=== PATIENT | male | born 1985 | race Caucasian/White ===

== ENCOUNTER 2019-07-07 11:25 | Inpatient (IN) | payer OTHER ==
[2019-07-07 12:58] VITALS: BMI 27.6
--- NOTE | 2019-07-07 14:41 | BHS.RME ---
Substance Use & Tx History - Substance Use History Alcohol Substance amount: 3pints of vodka/3 of 24ozs of beer Frequency of use: Daily Substance route: Oral Date of Last Use: 07/07/19 Cocaine (Crack) Substance amount: 150$ Frequency of use: Daily Date of Last Use: 07/07/19 Cannabis Substance amount: 2 blunnts Frequency of use: Less than 3 times per week Date of Last Use: 07/04/19 - Last Treatment Date of last treatment: at age 16 Where was last treatment: Detox Physical/Psych/Mental Status - Behavior General Behavior: Increased activity (restlessness, agitation) Eye Contact: Normal - Cooperativeness Cooperativeness: Cooperative - Thinking Thought Processes: Logical Thought content: Future oriented - Physical Health Problems Is patient presently having any pain?: No Does patient presently have any injuries (include location): No Does patient currently have a fever: No CIWA Nausea/Vomitin Muscle Tremors: 3 Anxiety: 2 Agitation: 3 Paroxysmal Sweats: 1-Minimal Palms Moist Orientation: 0-Oriented Tacttile Disturbances: 1-Very Mild Itch/Numbness Auditory Disturbances: 0-None Visual Disturbances: 0-None Headache: 2-Mild (this 34 yea sold male with alcohol,cociane and marijuana dependence,seeking detox, first time to this facility) CIWA-Ar Total Score: 15
--- NOTE | 2019-07-07 14:49 | HP ---
CIWA Score Nausea/Vomitin Muscle Tremors: 3 Anxiety: 2 Agitation: 3 Paroxysmal Sweats: 1-Minimal Palms Moist Orientation: 0-Oriented Tacttile Disturbances: 1-Very Mild Itch/Numbness Auditory Disturbances: 0-None Visual Disturbances: 0-None Headache: 2-Mild (this 34 yea sold male with alcohol,cociane and marijuana dependence,seeking detox, first time to this facility) CIWA-Ar Total Score: 15 - Admission Criteria [facility]ASAS Guidelines: Admission for Medically Managed Detox: Requires at least one of the followin. CIWA greater than 12 2. Seizures within the past 24 hours 3. Delirium tremens within the past 24 hours 4. Hallucinations within the past 24 hours 5. Acute intervention needed for co occurring medical disorder 6. Acute intervention needed for co occurring psychiatric disorder 7. Severe withdrawal that cannot be handled at a lower level of care (continued vomiting, continued diarrhea, abnormal vital signs) requiring intravenous medication and/or fluids 8. Admitting History and Physical - Admission Chief Complaint: i need help to stop drinking lcohol,cocaine and marijuana History of Present Illness: ths 34 yers old male with alcohol,cocaine and marijuana dependence,seeking detox ,withdrawal symptom, first time to this facility denied seizure denied syncope last detox at age 16 years no significant period of sobriety History Source: Patient Limitations to Obtaining History: No Limitations - Past Surgical History Past Surgical History: Yes: None - Smoking History Smoking history: Current every day smoker Have you smoked in the past 12 months: Yes Aproximately how many cigarettes per day: 10 - Alcohol/Substance Use Hx Alcohol Use: Yes History of Substance Use: reports: Cocaine, Marijuana - Social History Usual Living Arrangement: Yes: Other (nomeless) Occupation: unemployed History of Recent Travel: No Admission ROS [facility] - [facility] Chief Complaint: i need help to stop drinkine alcohol,cocaine and marijuana Allergies/Adverse Reactions: Allergies Allergy/AdvReac Type Severity Reaction Status Date / Time No Known Allergies Allergy Verified 07/07/19 14:23 History of Present Illness: his 34 yeas old mal with lcohol,cocine and marijuana dependence,seeking detox, withdrawal symptom,, first time to this facility denied seizure denied syncope nicotine dependence homeless,unemployed no significan tperiod of sobriety plan for rehab after detox Exam Limitations: No Limitations - Ebola screening Have you traveled outside of the country in the last 21 days: No Have you had contact with anyone from an Ebola affected area: No Have you been sick,other than usual withdrawal symptoms: No Do you have a fever: No - Review of Systems Constitutional: Loss of Appetite, Malaise, Night Sweats, Changes in sleep, Weakness EENT: reports: Tearing, Nose Congestion Respiratory: reports: No Symptoms reported Cardiac: reports: No Symptoms Reported GI: reports: Nausea, Poor Appetite, Abdominal cramping : reports: No Symptoms Reported Musculoskeletal: reports: Back Pain, Muscle Pain Integumentary: reports: Dryness Neuro: reports: Headache, Tremors Endocrine: reports: No Symptoms Reported Hematology: reports: No Symptoms Reported Psychiatric: reports: No Sypmtoms Reported, Judgement Intact, Mood/Affect Appropiate, Orientated x3 Other Systems: Reviewed and Negative Patient History - Patient Medical History Hx Anemia: No Hx Asthma: No Hx Chronic Obstructive Pulmonary Disease (COPD): No Hx Cancer: No Hx Cardiac Disorders: No Hx Congestive Heart Failure: No Hx Hypertension: No Hx Hypercholesterolemia: No Hx Pacemaker: No HX Cerebrovascular Accident: No Hx Seizures: No Hx Dementia: No Hx Diabetes: No Hx Gastrointestinal Disorders: No Hx Liver Disease: No Hx Genitourinary Disorders: No Hx Sexually Transmitted Disorders: No Hx Renal Disease (ESRD): No Hx Thyroid Disease: No Hx Human Immunodeficiency Virus (HIV): No (last 06/2019 negative) Hx Hepatitis C: No Hx Depression: No Hx Suicide Attempt: No Hx Bipolar Disorder: No Hx Schizophrenia: No Other Medical History: no suicidal,no homicidal - Patient Surgical History Past Surgical History: No - PPD History Previous Implant?: Yes Documented Results: Negative w/o proof Implanted On Prior R Admission?: No PPD to be Administered?: Yes - Smoking Cessation Smoking history: Current every day smoker Have you smoked in the past 12 months: Yes Cigars Per Day: 10 Hx Chewing Tobacco Use: No Initiated information on smoking cessation: Yes 'Breaking Loose' booklet given: 07/07/19 - Substance & Tx. History Hx Alcohol Use: Yes Hx Substance Use: Yes Substance Use Type: Alcohol, Cocaine, Marijuana Hx Substance Use Treatment: Yes (at age of [age] years old) - Substances abused Alcohol Substance route: Oral Frequency: Daily Amount used: 2-3 pints of vodka/2 of 24ozs of beer Age of first use: 12 Date of last use: 07/06/19 Cocaine Other (specify): and smoke Substance route: Inhalation Frequency: Daily Amount used: $150 Age of first use: 15 Date of last use: 07/06/19 Marijuana/Hashish Substance route: Smoking Frequency: 1-2 times per week Amount used: 2 blunts Age of first use: 17 Date of last use: 07/03/19 Admission Physical Exam [facility] - Vital Signs Vital Signs: Vital Signs - 24 hr 07/07/19 07/07/19 12:56 14:23 Temperature 97.1 F L 97.1 F L Pulse Rate 72 72 Respiratory 18 18 Rate Blood Pressure 100/63 100/63 - Physical General Appearance: Yes: Moderate Distress, Tremorous, Irritable, Sweating, Anxious HEENTM: Yes: DEIRDRE, Pharynx Normal Respiratory: Yes: Lungs Clear, Normal Breath Sounds, No Respiratory Distress Neck: Yes: Within Normal Limits, Supple, Trachea in good position Breast: Yes: Within Normal Limits Cardiology: Yes: Within Normal Limits, Regular Rhythm, Regular Rate, S1, S2 Abdominal: Yes: Within Normal Limits, Normal Bowel Sounds, Non Tender, Flat, Soft Genitourinary: Yes: Within Normal Limits Back: Yes: Muscle Spasm Musculoskeletal: Yes: Back pain, Muscle Pain Extremities: Yes: Tremors 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 NML intact, Fully Oriented, Alert, Motor Strength 5/5 Integumentary: Yes: Dry Lymphatic: Yes: Within Normal Limits - Diagnostic (1) Alcohol dependence with uncomplicated withdrawal Current Visit: Yes Status: Acute (2) Cocaine dependence Current Visit: Yes Status: Acute (3) Cannabis dependence Current Visit: Yes Status: Acute (4) Nicotine dependence Current Visit: Yes Status: Acute Cleared for Admission [facility] - Detox or Rehab [facility] Level of Care: Medically Managed Detox Regimen/Protocol: Librium Breathalyzer - Breathalyzer Breathalyzer: 0 Urine Drug Screen - Test Device Lot number: [id number] Expiration date: 04/15/21 - Control Is test valid?: Yes - Results Drug screen NEGATIVE: No Urine drug screen results: THC-Marijuana, ANA-Cocaine, BZO-Benzodiazepines Inpatient Rehab Admission - Rehab Decision to Admit Inpatient rehab admission?: No
[2019-07-07] MEDS ORDERED: IBUPROFEN 400 MG TABLET (FP) PO PRN (14:56)
[2019-07-07] MEDS ORDERED: BISMUTH SUBSALICYLATE 524 MG/30 ML UD PO PRN (14:56)
[2019-07-07] MEDS ORDERED: NICOTINE POLACRILEX 2 MG GUM BUC PRN (14:56)
[2019-07-07] MEDS ORDERED: chlordiazePOXIDE HCL 25 MG CAPSULE PO PRN (14:56)
[2019-07-07] MEDS ORDERED: METHOCARBAMOL 500 MG TABLET PO PRN (14:56)
[2019-07-07] MEDS ORDERED: MENTHOL/PHENOL 1 EACH UD MM PRN (14:56)
[2019-07-07] MEDS ORDERED: MAGNESIUM HYDROX 2400MG/30ML ORAL SUSPENSION 30 ML CUP PO PRN (14:56)
[2019-07-07] MEDS ORDERED: ACETAMINOPHEN 325 MG TABLET (FP) PO PRN (14:56)
[2019-07-07] MEDS ORDERED: MAG HYDROX/AL HYDROX/SIMETH 30 ML UNIT-DOSE CUP PO PRN (14:56)
[2019-07-07] MEDS ORDERED: MAGNESIUM CITRATE 300 ML BOTTLE PO PRN (14:56)
[2019-07-07] MEDS: NICOTINE 21 MG/24 HOURS TOPICAL PATCH TD SCH (17:21)
[2019-07-07] MEDS: chlordiazePOXIDE HCL 25 MG CAPSULE PO SCH ×2 (17:21→22:18)
--- NOTE | 2019-07-07 19:16 | PN ---
BHS Progress Note Note: Pt c/o toothache. Will increase ibuprofen to 800mg TID prn
[2019-07-07] MEDS: THIAMINE HCL 100 MG TABLET (FP) PO SCH (22:18)
[2019-07-07] MEDS: MELATONIN 5 MG TABLETS PO PRN (22:20)
[2019-07-08] MEDS: chlordiazePOXIDE HCL 25 MG CAPSULE PO SCH ×4 (05:22→22:12)
[2019-07-08] MEDS: PRENATAL VITAMINS W/ FOLIC ACID TABLET (FP) PO SCH (10:11)
[2019-07-08] MEDS: NICOTINE 21 MG/24 HOURS TOPICAL PATCH TD SCH (10:13)
[2019-07-08] MEDS: IBUPROFEN 400 MG TABLET (FP) PO PRN ×2 (10:13→22:11)
[2019-07-08 10:18] LABS: ALBUMIN 3.4 g/dl (3.4-5.0); BILIRUBIN,TOTAL 0.5 mg/dL (0.2-1); BLOOD UREA NITROGEN 19.3 mg/dL (7-18); CALCIUM 8.5 mg/dL (8.5-10.1); CREATININE 0.8 mg/dL (0.55-1.3); TOT PROT 6.1 g/dl (6.4-8.2)
[2019-07-08 10:19] LABS: HEMATOCRIT 42.8 % (35.4-49); HEMOGLOBIN 14.2 GM/dL (11.7-16.9); MCH 31.4 pg (25.7-33.7); MCHC 33.1 g/dl (32.0-35.9); MEAN CELL VOLUME 94.6 fl (80-96); MEAN PLT VOLUME 8.1 fl (7.5-11.1); PLATELET COUNT 203 K/MM3 (134-434); RBC 4.52 M/mm3 (4.00-5.60); RDW 14.5 % (11.9-15.9); WHITE BLOOD COUNT 6.6 K/mm3 (4.0-10.0)
--- NOTE | 2019-07-08 10:29 | EKG ---
Test Reason : Blood Pressure : / mmHG Vent. Rate : 083 BPM Atrial Rate : 083 BPM P-R Int : 178 ms QRS Dur : 090 ms QT Int : 382 ms P-R-T Axes : 069 048 042 degrees QTc Int : 448 ms NORMAL SINUS RHYTHM NORMAL ECG NO PREVIOUS ECGS AVAILABLE Confirmed by Konstantin Dale ([id number]) on 07/08/2019 10:29:03 AM Referred By: CANDICE Confirmed By:Konstantin Dale
[2019-07-08] MEDS ORDERED: LIDOCAINE VISCOUS 2% ORAL/TOP 20 ML UNIT-DOSE CUP MM PRN (14:22)
--- NOTE | 2019-07-08 14:27 | PN ---
S CIWA - CIWA Score Nausea/Vomitin-Mild Nausea/No Vomiting Muscle Tremors: 4-Moderate,w/Arms Extend Anxiety: 4-Mod. Anxious/Guarded Agitation: 0-Normal Activity Paroxysmal Sweats: 2 Orientation: 0-Oriented Tacttile Disturbances: 0-None Auditory Disturbances: 0-None Visual Disturbances: 0-None Headache: 2-Mild CIWA-Ar Total Score: 13 BHS Progress Note (SOAP) Subjective: 34 years old male admitted on 07/07/19 for alcohol withdrawal sx management treating with librium detox regiment tooth ache lidocaine MM tid prn Objective: 07/08/19 14:24 Vital Signs Temperature 97.2 F L 07/08/19 12:53 Pulse Rate 85 07/08/19 12:53 Respiratory Rate 18 07/08/19 12:53 Blood Pressure 114/64 07/08/19 12:53 O2 Sat by Pulse Oximetry (%) Laboratory Last Values WBC 6.6 K/mm3 (4.0-10.0) 07/08/19 07:30 RBC 4.52 M/mm3 (4.00-5.60) 07/08/19 07:30 Hgb 14.2 GM/dL (11.7-16.9) 07/08/19 07:30 Hct 42.8 % (35.4-49) 07/08/19 07:30 MCV 94.6 fl (80-96) 07/08/19 07:30 MCH 31.4 pg (25.7-33.7) 07/08/19 07:30 MCHC 33.1 g/dl (32.0-35.9) 07/08/19 07:30 RDW 14.5 % (11.9-15.9) 07/08/19 07:30 Plt Count 203 K/MM3 (134-434) 07/08/19 07:30 MPV 8.1 fl (7.5-11.1) 07/08/19 07:30 Sodium 140 mmol/L (136-145) 07/08/19 07:30 Potassium 4.0 mmol/L (3.5-5.1) 07/08/19 07:30 Chloride 106 mmol/L (98-107) 07/08/19 07:30 Carbon Dioxide 30 mmol/L (21-32) 07/08/19 07:30 Anion Gap 4 MMOL/L (8-16) L 07/08/19 07:30 BUN 19.3 mg/dL (7-18) H 07/08/19 07:30 Creatinine 0.8 mg/dL (0.55-1.3) 07/08/19 07:30 Est GFR (CKD-EPI)AfAm 136.03 07/08/19 07:30 Est GFR (CKD-EPI)NonAf 117.37 07/08/19 07:30 Random Glucose 88 mg/dL (74-106) 07/08/19 07:30 Calcium 8.5 mg/dL (8.5-10.1) 07/08/19 07:30 Total Bilirubin 0.5 mg/dL (0.2-1) 07/08/19 07:30 AST 42 U/L (15-37) H 07/08/19 07:30 ALT 214 U/L (13-61) H 07/08/19 07:30 Alkaline Phosphatase 90 U/L (45-117) 07/08/19 07:30 Total Protein 6.1 g/dl (6.4-8.2) L 07/08/19 07:30 Albumin 3.4 g/dl (3.4-5.0) 07/08/19 07:30 RPR Titer Nonreactive (NONREACTIVE) 07/08/19 07:30 lab noted Assessment: 07/08/19 14:24 alcohol withdrawal Plan: librium regiment
[2019-07-08] MEDS: hydrOXYzine PAMOATE 25 MG CAPSULE (FP) PO PRN (17:40)
[2019-07-08] MEDS: MELATONIN 5 MG TABLETS PO PRN (22:09)
[2019-07-08] MEDS: THIAMINE HCL 100 MG TABLET (FP) PO SCH (22:12)
[2019-07-09] MEDS: chlordiazePOXIDE HCL 25 MG CAPSULE PO SCH ×4 (05:31→22:25)
[2019-07-09] MEDS: ACETAMINOPHEN 325 MG TABLET (FP) PO PRN (05:32)
[2019-07-09] MEDS: PRENATAL VITAMINS W/ FOLIC ACID TABLET (FP) PO SCH (10:15)
[2019-07-09] MEDS: IBUPROFEN 400 MG TABLET (FP) PO PRN ×2 (10:18→18:13)
[2019-07-09] MEDS: NICOTINE 21 MG/24 HOURS TOPICAL PATCH TD SCH (10:19)
[2019-07-09] MEDS ORDERED: cloNIDine HCL 0.1 MG TABLET PO PRN (11:45)
--- NOTE | 2019-07-09 11:45 | PN ---
BHS CIWA - CIWA Score Nausea/Vomitin-Mild Nausea/No Vomiting Muscle Tremors: 2 Anxiety: 1-Mildly Anxious Agitation: 1-Slight > Activity Paroxysmal Sweats: No Perspiration Orientation: 0-Oriented Tacttile Disturbances: 0-None Auditory Disturbances: 0-None Visual Disturbances: 0-None Headache: 2-Mild CIWA-Ar Total Score: 7 BHS Progress Note (SOAP) Subjective: pt states he has a headache, would like to go to rehab after alcohol detox O: Vital Signs - 24 hr 07/08/19 07/08/19 07/08/19 12:53 16:44 20:50 Temperature 97.2 F L 97.2 F L 97.2 F L Pulse Rate 85 89 80 Respiratory 18 18 18 Rate Blood Pressure 114/64 119/71 114/64 07/09/19 07/09/19 07/09/19 00:35 03:28 06:14 Temperature 97.0 F L Pulse Rate 61 Respiratory 18 18 18 Rate Blood Pressure 99/52 L 07/09/19 08:40 Temperature 96.8 F L Pulse Rate 80 Respiratory 18 Rate Blood Pressure 113/69 Laboratory Tests 07/08/19 07/08/19 07/08/19 07:30 07:30 07:30 WBC 6.6 RBC 4.52 Hgb 14.2 Hct 42.8 MCV 94.6 MCH 31.4 MCHC 33.1 RDW 14.5 Plt Count 203 MPV 8.1 Sodium 140 Potassium 4.0 Chloride 106 Carbon Dioxide 30 Anion Gap 4 L BUN 19.3 H Creatinine 0.8 Est GFR (CKD-EPI)AfAm 136.03 Est GFR (CKD-EPI)NonAf 117.37 Random Glucose 88 Calcium 8.5 Total Bilirubin 0.5 AST 42 H ALT 214 H Alkaline Phosphatase 90 Total Protein 6.1 L Albumin 3.4 RPR Titer Nonreactive a/p AUD- continue detox protocol prn meds for Sx management
[2019-07-09 16:25] LABS: URINE APPEARANCE CLEAR; URINE BILIRUBIN NEGATIVE (NEGATIVE); URINE COLOR YELLOW; URINE GLUCOSE (UA) NEGATIVE (NEGATIVE); URINE KETONE NEGATIVE (NEGATIVE); URINE LEUK ESTERASE NEGATIVE (NEGATIVE); URINE NITRITE NEGATIVE (NEGATIVE); URINE PROTEIN NEGATIVE (NEGATIVE); URINE UROBILINOGEN 0.2 mg/dL (0.2-1.0)
[2019-07-09] MEDS: THIAMINE HCL 100 MG TABLET (FP) PO SCH (22:25)
[2019-07-09] MEDS: hydrOXYzine PAMOATE 25 MG CAPSULE (FP) PO PRN (22:26)
[2019-07-10] MEDS ORDERED: chlordiazePOXIDE HCL 10 MG CAPSULE PO PRN
[2019-07-10] MEDS: ACETAMINOPHEN 325 MG TABLET (FP) PO PRN (00:01)
[2019-07-10] MEDS: chlordiazePOXIDE HCL 10 MG CAPSULE PO SCH ×4 (05:08→22:10)
[2019-07-10] MEDS: IBUPROFEN 400 MG TABLET (FP) PO PRN ×2 (10:19→17:38)
[2019-07-10] MEDS: PRENATAL VITAMINS W/ FOLIC ACID TABLET (FP) PO SCH (10:20)
[2019-07-10] MEDS: NICOTINE 21 MG/24 HOURS TOPICAL PATCH TD SCH (10:21)
--- NOTE | 2019-07-10 15:35 | PN ---
S CIWA - CIWA Score Nausea/Vomitin-No Nausea/No Vomiting Muscle Tremors: 1-None Visible, but [place] Anxiety: 1-Mildly Anxious Agitation: 0-Normal Activity Paroxysmal Sweats: 1-Minimal Palms Moist Orientation: 0-Oriented Tacttile Disturbances: 0-None Auditory Disturbances: 0-None Visual Disturbances: 1-Very Mild Sensitivity Headache: 1-Very Mild CIWA-Ar Total Score: 5 BHS Progress Note (SOAP) Subjective: 34 years old male admitted on 07/07/19 for alcohol withdrawal sx management treating with librim detox regiment feeling ok today ate breakfast and lunch in day room social with peers discuss aftercare with staff patient prefers [facility] for chemical dependent recovery Objective: 07/10/19 15:37 Vital Signs Temperature 97.4 F L 07/10/19 12:44 Pulse Rate 80 07/10/19 12:44 Respiratory Rate 18 07/10/19 12:44 Blood Pressure 114/59 L 07/10/19 12:44 O2 Sat by Pulse Oximetry (%) Laboratory Last Values WBC 6.6 K/mm3 (4.0-10.0) 07/08/19 07:30 RBC 4.52 M/mm3 (4.00-5.60) 07/08/19 07:30 Hgb 14.2 GM/dL (11.7-16.9) 07/08/19 07:30 Hct 42.8 % (35.4-49) 07/08/19 07:30 MCV 94.6 fl (80-96) 07/08/19 07:30 MCH 31.4 pg (25.7-33.7) 07/08/19 07:30 MCHC 33.1 g/dl (32.0-35.9) 07/08/19 07:30 RDW 14.5 % (11.9-15.9) 07/08/19 07:30 Plt Count 203 K/MM3 (134-434) 07/08/19 07:30 MPV 8.1 fl (7.5-11.1) 07/08/19 07:30 Sodium 140 mmol/L (136-145) 07/08/19 07:30 Potassium 4.0 mmol/L (3.5-5.1) 07/08/19 07:30 Chloride 106 mmol/L (98-107) 07/08/19 07:30 Carbon Dioxide 30 mmol/L (21-32) 07/08/19 07:30 Anion Gap 4 MMOL/L (8-16) L 07/08/19 07:30 BUN 19.3 mg/dL (7-18) H 07/08/19 07:30 Creatinine 0.8 mg/dL (0.55-1.3) 07/08/19 07:30 Est GFR (CKD-EPI)AfAm 136.03 07/08/19 07:30 Est GFR (CKD-EPI)NonAf 117.37 07/08/19 07:30 Random Glucose 88 mg/dL (74-106) 07/08/19 07:30 Calcium 8.5 mg/dL (8.5-10.1) 07/08/19 07:30 Total Bilirubin 0.5 mg/dL (0.2-1) 07/08/19 07:30 AST 42 U/L (15-37) H 07/08/19 07:30 ALT 214 U/L (13-61) H 07/08/19 07:30 Alkaline Phosphatase 90 U/L (45-117) 07/08/19 07:30 Total Protein 6.1 g/dl (6.4-8.2) L 07/08/19 07:30 Albumin 3.4 g/dl (3.4-5.0) 07/08/19 07:30 Urine Color Yellow 07/09/19 10:50 Urine Appearance Clear 07/09/19 10:50 Urine pH 7.0 (5.0-8.0) 07/09/19 10:50 Ur Specific [place] 1.026 (1.010-1.035) 07/09/19 10:50 Urine Protein Negative (NEGATIVE) 07/09/19 10:50 Urine Glucose (UA) Negative (NEGATIVE) 07/09/19 10:50 Urine Ketones Negative (NEGATIVE) 07/09/19 10:50 Urine Blood Negative (NEGATIVE) 07/09/19 10:50 Urine Nitrite Negative (NEGATIVE) 07/09/19 10:50 Urine Bilirubin Negative (NEGATIVE) 07/09/19 10:50 Urine Urobilinogen 0.2 mg/dL (0.2-1.0) 07/09/19 10:50 Ur Leukocyte Esterase Negative (NEGATIVE) 07/09/19 10:50 RPR Titer Nonreactive (NONREACTIVE) 07/08/19 07:30 lab noted Assessment: 07/10/19 15:37 alcohol withdrawal Plan: librium regiment
[2019-07-10] MEDS: hydrOXYzine PAMOATE 25 MG CAPSULE (FP) PO PRN (17:38)
[2019-07-10] MEDS: THIAMINE HCL 100 MG TABLET (FP) PO SCH (22:10)
[2019-07-10] MEDS: MELATONIN 5 MG TABLETS PO PRN (22:11)
[2019-07-11] MEDS: chlordiazePOXIDE HCL 10 MG CAPSULE PO SCH ×2 (05:35→17:33)
[2019-07-11] MEDS: PRENATAL VITAMINS W/ FOLIC ACID TABLET (FP) PO SCH (09:56)
[2019-07-11] MEDS: hydrOXYzine PAMOATE 25 MG CAPSULE (FP) PO PRN (09:56)
[2019-07-11] MEDS: NICOTINE 21 MG/24 HOURS TOPICAL PATCH TD SCH (09:56)
--- NOTE | 2019-07-11 12:09 | PN ---
[facility] CIWA - CIWA Score Nausea/Vomitin-No Nausea/No Vomiting Muscle Tremors: 1-None Visible, but [place] Anxiety: 1-Mildly Anxious Agitation: 0-Normal Activity Paroxysmal Sweats: 1-Minimal Palms Moist Orientation: 0-Oriented Tacttile Disturbances: 0-None Auditory Disturbances: 0-None Visual Disturbances: 0-None Headache: 0-None Present CIWA-Ar Total Score: 3 BHS Progress Note (SOAP) Subjective: 34 years old male admitted on 07/07/19 for alcohol withdrawal sx management treating with librium detox regiment reports long history of anxiety treated with valium xanax and percocet patient demands to be seen by a psychiatrist for his anxiety health teaching on risks of addiction and mental and physical negative consequences from valium xanax and percocet Objective: 07/11/19 12:12 Vital Signs Temperature 96.8 F L 07/11/19 08:41 Pulse Rate 79 07/11/19 08:41 Respiratory Rate 18 07/11/19 08:41 Blood Pressure 109/69 07/11/19 08:41 O2 Sat by Pulse Oximetry (%) Laboratory Last Values WBC 6.6 K/mm3 (4.0-10.0) 07/08/19 07:30 RBC 4.52 M/mm3 (4.00-5.60) 07/08/19 07:30 Hgb 14.2 GM/dL (11.7-16.9) 07/08/19 07:30 Hct 42.8 % (35.4-49) 07/08/19 07:30 MCV 94.6 fl (80-96) 07/08/19 07:30 MCH 31.4 pg (25.7-33.7) 07/08/19 07:30 MCHC 33.1 g/dl (32.0-35.9) 07/08/19 07:30 RDW 14.5 % (11.9-15.9) 07/08/19 07:30 Plt Count 203 K/MM3 (134-434) 07/08/19 07:30 MPV 8.1 fl (7.5-11.1) 07/08/19 07:30 Sodium 140 mmol/L (136-145) 07/08/19 07:30 Potassium 4.0 mmol/L (3.5-5.1) 07/08/19 07:30 Chloride 106 mmol/L (98-107) 07/08/19 07:30 Carbon Dioxide 30 mmol/L (21-32) 07/08/19 07:30 Anion Gap 4 MMOL/L (8-16) L 07/08/19 07:30 BUN 19.3 mg/dL (7-18) H 07/08/19 07:30 Creatinine 0.8 mg/dL (0.55-1.3) 07/08/19 07:30 Est GFR (CKD-EPI)AfAm 136.03 07/08/19 07:30 Est GFR (CKD-EPI)NonAf 117.37 07/08/19 07:30 Random Glucose 88 mg/dL (74-106) 07/08/19 07:30 Calcium 8.5 mg/dL (8.5-10.1) 07/08/19 07:30 Total Bilirubin 0.5 mg/dL (0.2-1) 07/08/19 07:30 AST 42 U/L (15-37) H 07/08/19 07:30 ALT 214 U/L (13-61) H 07/08/19 07:30 Alkaline Phosphatase 90 U/L (45-117) 07/08/19 07:30 Total Protein 6.1 g/dl (6.4-8.2) L 07/08/19 07:30 Albumin 3.4 g/dl (3.4-5.0) 07/08/19 07:30 Urine Color Yellow 07/09/19 10:50 Urine Appearance Clear 07/09/19 10:50 Urine pH 7.0 (5.0-8.0) 07/09/19 10:50 Ur Specific [place] 1.026 (1.010-1.035) 07/09/19 10:50 Urine Protein Negative (NEGATIVE) 07/09/19 10:50 Urine Glucose (UA) Negative (NEGATIVE) 07/09/19 10:50 Urine Ketones Negative (NEGATIVE) 07/09/19 10:50 Urine Blood Negative (NEGATIVE) 07/09/19 10:50 Urine Nitrite Negative (NEGATIVE) 07/09/19 10:50 Urine Bilirubin Negative (NEGATIVE) 07/09/19 10:50 Urine Urobilinogen 0.2 mg/dL (0.2-1.0) 07/09/19 10:50 Ur Leukocyte Esterase Negative (NEGATIVE) 07/09/19 10:50 RPR Titer Nonreactive (NONREACTIVE) 07/08/19 07:30 lab noted Assessment: 07/11/19 12:12 alcohol withdrawal Plan: librium regiment
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
[2019-07-11] MEDS ORDERED: hydrOXYzine PAMOATE 50 MG CAPSULE (FP) PO PRN (16:11)
[2019-07-11] MEDS ORDERED: MELATONIN 5 MG TABLETS PO PRN (22:00)
[2019-07-11] MEDS: IBUPROFEN 400 MG TABLET (FP) PO PRN (22:17)
[2019-07-11] MEDS: THIAMINE HCL 100 MG TABLET (FP) PO SCH (22:17)
[2019-07-12] MEDS ORDERED: chlordiazePOXIDE HCL 10 MG CAPSULE PO ONE (05:00)
[2019-07-12] MEDS: IBUPROFEN 400 MG TABLET (FP) PO PRN (05:59)
[2019-07-12 09:16] VITALS: BP 100/56; PULSE 78; TEMP 97.3
--- NOTE | 2019-07-12 09:47 | PN ---
[facility] CIWA - CIWA Score Nausea/Vomitin-No Nausea/No Vomiting Muscle Tremors: 1-None Visible, but [place] Anxiety: 1-Mildly Anxious Agitation: 0-Normal Activity Paroxysmal Sweats: No Perspiration Orientation: 0-Oriented Tacttile Disturbances: 0-None Auditory Disturbances: 0-None Visual Disturbances: 0-None Headache: 0-None Present CIWA-Ar Total Score: 2 BHS Progress Note (SOAP) Subjective: alert,no complaint Objective: 07/12/19 09:46 Vital Signs Temperature 97.3 F L 07/12/19 08:39 Pulse Rate 78 07/12/19 08:39 Respiratory Rate 16 07/12/19 08:39 Blood Pressure 100/56 L 07/12/19 08:39 O2 Sat by Pulse Oximetry (%) Assessment: 07/12/19 09:46 detox completed,no withdrawal symptom Plan: discharge today,[facility]
--- NOTE | 2019-07-12 09:51 | DS ---
[facility] Detox Discharge Summary Admission Date: 07/07/19 Discharge Date: 07/12/19 - History Present History: Alcohol Dependence, Cannabis Dependence, Cocaine Dependence Additional Comments: alert,oriented x 3 heart normal heart sound lung clear no abdominal pain stable for discharge to rehab time spending for discharge 35 mins Pertinent Past History: nicotine dependence - Physical Exam Results Vital Signs: Vital Signs Temperature 97.3 F L 07/12/19 08:39 Pulse Rate 78 07/12/19 08:39 Respiratory Rate 16 07/12/19 08:39 Blood Pressure 100/56 L 07/12/19 08:39 O2 Sat by Pulse Oximetry (%) Pertinent Admission Physical Exam Findings: withdrawal signs and symptom Laboratory Last Values WBC 6.6 K/mm3 (4.0-10.0) 07/08/19 07:30 RBC 4.52 M/mm3 (4.00-5.60) 07/08/19 07:30 Hgb 14.2 GM/dL (11.7-16.9) 07/08/19 07:30 Hct 42.8 % (35.4-49) 07/08/19 07:30 MCV 94.6 fl (80-96) 07/08/19 07:30 MCH 31.4 pg (25.7-33.7) 07/08/19 07:30 MCHC 33.1 g/dl (32.0-35.9) 07/08/19 07:30 RDW 14.5 % (11.9-15.9) 07/08/19 07:30 Plt Count 203 K/MM3 (134-434) 07/08/19 07:30 MPV 8.1 fl (7.5-11.1) 07/08/19 07:30 Sodium 140 mmol/L (136-145) 07/08/19 07:30 Potassium 4.0 mmol/L (3.5-5.1) 07/08/19 07:30 Chloride 106 mmol/L (98-107) 07/08/19 07:30 Carbon Dioxide 30 mmol/L (21-32) 07/08/19 07:30 Anion Gap 4 MMOL/L (8-16) L 07/08/19 07:30 BUN 19.3 mg/dL (7-18) H 07/08/19 07:30 Creatinine 0.8 mg/dL (0.55-1.3) 07/08/19 07:30 Est GFR (CKD-EPI)AfAm 136.03 07/08/19 07:30 Est GFR (CKD-EPI)NonAf 117.37 07/08/19 07:30 Random Glucose 88 mg/dL (74-106) 07/08/19 07:30 Calcium 8.5 mg/dL (8.5-10.1) 07/08/19 07:30 Total Bilirubin 0.5 mg/dL (0.2-1) 07/08/19 07:30 AST 42 U/L (15-37) H 07/08/19 07:30 ALT 214 U/L (13-61) H 07/08/19 07:30 Alkaline Phosphatase 90 U/L (45-117) 07/08/19 07:30 Total Protein 6.1 g/dl (6.4-8.2) L 07/08/19 07:30 Albumin 3.4 g/dl (3.4-5.0) 07/08/19 07:30 Urine Color Yellow 07/09/19 10:50 Urine Appearance Clear 07/09/19 10:50 Urine pH 7.0 (5.0-8.0) 07/09/19 10:50 Ur Specific [place] 1.026 (1.010-1.035) 07/09/19 10:50 Urine Protein Negative (NEGATIVE) 07/09/19 10:50 Urine Glucose (UA) Negative (NEGATIVE) 07/09/19 10:50 Urine Ketones Negative (NEGATIVE) 07/09/19 10:50 Urine Blood Negative (NEGATIVE) 07/09/19 10:50 Urine Nitrite Negative (NEGATIVE) 07/09/19 10:50 Urine Bilirubin Negative (NEGATIVE) 07/09/19 10:50 Urine Urobilinogen 0.2 mg/dL (0.2-1.0) 07/09/19 10:50 Ur Leukocyte Esterase Negative (NEGATIVE) 07/09/19 10:50 RPR Titer Nonreactive (NONREACTIVE) 07/08/19 07:30 - Treatment Hospital Course: Detox Protocol Followed, Detoxed Safely, Responded well, Discharged Condition Good, Rehab Referral Accepted Patient has Accepted [facility] - Medication Discharge Medications: Ambulatory Orders NK [No Known Home Medication] 07/07/19 - Diagnosis (1) Alcohol dependence with uncomplicated withdrawal Current Visit: Yes Status: Acute (2) Cocaine dependence Current Visit: Yes Status: Acute (3) Cannabis dependence Current Visit: Yes Status: Acute (4) Nicotine dependence Current Visit: Yes Status: Acute - AMA Did Patient Leave Against Medical Advice: No
--- NOTE | 2019-07-12 09:53 | HP ---
[facility] Rehab Assess/Revision - Admission History Admitted to Rehab from: [facility] Date of Admission to Rehab: 07/12/2019 - Vital signs Vital Signs: Vital Signs Period Temp Pulse Resp BP Sys/Stanley Pulse Ox Last 24 Hr 96.5 F-97.9 F 63-87 16-18 93-112/55-68 - Findings Detox History & Physical reviewed: Yes Concur with findings: Yes Comments/Additional Findings: for rehab as protocol Inpatient Rehab Admission - Rehab Decision to Admit Inpatient rehab admission?: Yes - Initial Determination Are CD services needed?: Yes Free of communicable disease: Yes Not in need of hospitalization: Yes - Rehab Admission Criteria Previous failed treatment: Yes Poor recovery environment: Yes Comorbidities: Yes Lacks judgement: No Patient is meeting Inpatient Rehab admission criteria:: Yes
[2019-07-12] MEDS: PRENATAL VITAMINS W/ FOLIC ACID TABLET (FP) PO SCH (10:13)
[2019-07-12] MEDS: NICOTINE 21 MG/24 HOURS TOPICAL PATCH TD SCH (10:14)
== END 2019-07-12 13:20 | disposition other institution (70) | DRG 774 ==
LOC: YASAS 11:25 → Y3N 15:06
PROVIDERS: ADMIT Allergy & Immunology; ATTEND Allergy & Immunology
PROC: HZ2ZZZZ Detoxification Services for Substance Abuse Treatment (ICD-10-PCS; principal; 2019-07-07)
DX: F10.230 Alcohol dependence with withdrawal, uncomplicated (principal); F14.20 Cocaine dependence, uncomplicated; F12.20 Cannabis dependence, uncomplicated; F17.210 Nicotine dependence, cigarettes, uncomplicated; K08.89 Other specified disorders of teeth and supporting structures; Z59.0 Homelessness
CPT/HCPCS: 36415; 80053; 81003; 85027; 86593; 93005; 93010

== ENCOUNTER 2019-07-12 14:15 | Inpatient (IN) | payer OTHER ==
[2019-07-12] MEDS ORDERED: MAGNESIUM CITRATE 300 ML BOTTLE PO PRN (14:28)
[2019-07-12] MEDS ORDERED: guaiFENesin 200 MG/10 ML 10 ML UNIT-DOSE CUPS PO PRN (14:28)
[2019-07-12] MEDS ORDERED: P-EPHED 60MG/TRIPROLIDI 2.5MG TABLET PO PRN (14:28)
[2019-07-12] MEDS ORDERED: LOPERAMIDE HCL 2 MG CAPSULE PO PRN (14:28)
[2019-07-12] MEDS ORDERED: MAGNESIUM HYDROX 2400MG/30ML ORAL SUSPENSION 30 ML CUP PO PRN (14:28)
[2019-07-12] MEDS ORDERED: MENTHOL/PHENOL 1 EACH UD MM PRN (14:28)
--- NOTE | 2019-07-12 14:34 | PN ---
[facility] Progress Note Note: Patient admitted to rehab from detox PMHx: his 34 yeas old mal with alcohol,cocaine and marijuana dependence, first time to this facility denied seizure denied syncope nicotine dependence homeless,unemployed no significant period of sobriety Vital Signs Period Temp Pulse Resp BP Sys/Stanley Pulse Ox Last 24 Hr 97.9 F 82 18 112/64 General: no apparent distress HEENTM: PERRLA MSK: full weight bearing, steady gait, Neuro: CN2-12 intact A/P Substance use disorder Continue treatment Maintain safety Hydration
--- NOTE | 2019-07-12 14:34 | HP ---
[facility] Rehab Assess/Revision - Admission History Admitted to Rehab from: [facility] [place] - Vital signs Vital Signs: Vital Signs Period Temp Pulse Resp BP Sys/Stanley Pulse Ox Last 24 Hr 97.9 F 82 18 112/64 - Findings Detox History & Physical reviewed: Yes Concur with findings: Yes Inpatient Rehab Admission - Rehab Decision to Admit Inpatient rehab admission?: Yes - Initial Determination Are CD services needed?: Yes Free of communicable disease: Yes Not in need of hospitalization: Yes - Rehab Admission Criteria Previous failed treatment: Yes Poor recovery environment: Yes Comorbidities: Yes Lacks judgement: Yes Patient is meeting Inpatient Rehab admission criteria:: Yes
[2019-07-12] MEDS: METHOCARBAMOL 500 MG TABLET PO SCH ×2 (17:40→21:29)
[2019-07-12] MEDS: THIAMINE HCL 100 MG TABLET (FP) PO SCH (21:29)
[2019-07-12] MEDS: MELATONIN 5 MG TABLETS PO PRN (21:29)
[2019-07-13] MEDS: IBUPROFEN 400 MG TABLET (FP) PO PRN (00:59)
[2019-07-13] MEDS: METHOCARBAMOL 500 MG TABLET PO SCH ×4 (10:23→21:06)
[2019-07-13] MEDS: NICOTINE 21 MG/24 HOURS TOPICAL PATCH TD SCH (10:23)
[2019-07-13] MEDS: PRENATAL VITAMINS W/ FOLIC ACID TABLET (FP) PO SCH (10:23)
[2019-07-13] MEDS: hydrOXYzine PAMOATE 50 MG CAPSULE (FP) PO PRN ×2 (17:27→23:10)
[2019-07-13] MEDS: NICOTINE POLACRILEX 4 MG GUM BUC PRN (17:28)
[2019-07-13] MEDS: MELATONIN 5 MG TABLETS PO PRN (21:06)
[2019-07-13] MEDS: THIAMINE HCL 100 MG TABLET (FP) PO SCH (21:06)
[2019-07-13] MEDS: ACETAMINOPHEN 325 MG TABLET (FP) PO PRN (21:06)
[2019-07-14] MEDS: IBUPROFEN 400 MG TABLET (FP) PO PRN (00:48)
[2019-07-14] MEDS: PRENATAL VITAMINS W/ FOLIC ACID TABLET (FP) PO SCH (09:45)
[2019-07-14] MEDS: METHOCARBAMOL 500 MG TABLET PO SCH ×4 (09:45→21:30)
[2019-07-14] MEDS: NICOTINE 21 MG/24 HOURS TOPICAL PATCH TD SCH (09:45)
[2019-07-14] MEDS: hydrOXYzine PAMOATE 50 MG CAPSULE (FP) PO PRN (21:30)
[2019-07-14] MEDS: THIAMINE HCL 100 MG TABLET (FP) PO SCH (21:30)
[2019-07-14] MEDS: MELATONIN 5 MG TABLETS PO PRN (21:30)
[2019-07-14] MEDS: MAG HYDROX/AL HYDROX/SIMETH 30 ML UNIT-DOSE CUP PO PRN (21:31)
[2019-07-14] MEDS: NICOTINE POLACRILEX 4 MG GUM BUC PRN (21:31)
[2019-07-15] MEDS: IBUPROFEN 400 MG TABLET (FP) PO PRN ×2 (06:21→14:49)
[2019-07-15] MEDS: METHOCARBAMOL 500 MG TABLET PO SCH ×4 (09:58→21:11)
[2019-07-15] MEDS: PRENATAL VITAMINS W/ FOLIC ACID TABLET (FP) PO SCH (09:58)
[2019-07-15] MEDS: MAG HYDROX/AL HYDROX/SIMETH 30 ML UNIT-DOSE CUP PO PRN (09:59)
[2019-07-15] MEDS: NICOTINE 21 MG/24 HOURS TOPICAL PATCH TD SCH (10:00)
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
--- NOTE | 2019-07-15 13:53 | PN ---
[facility] Progress Note Note: Vital Signs Temperature 97.8 F 07/15/19 06:53 Pulse Rate 69 07/15/19 06:53 Respiratory Rate 18 07/15/19 06:53 Blood Pressure 112/69 07/15/19 06:53 O2 Sat by Pulse Oximetry (%) Labs reviewed, AST/ALT 42/214. Will repeat CMP in am.
[2019-07-15] MEDS: NICOTINE POLACRILEX 4 MG GUM BUC PRN (19:29)
[2019-07-15] MEDS: THIAMINE HCL 100 MG TABLET (FP) PO SCH (21:10)
[2019-07-15] MEDS ORDERED: SUVOREXANT 10 MG TABLET PO PRN (22:00)
[2019-07-16] MEDS: MAG HYDROX/AL HYDROX/SIMETH 30 ML UNIT-DOSE CUP PO PRN ×2 (00:49→14:32)
[2019-07-16] MEDS: PRENATAL VITAMINS W/ FOLIC ACID TABLET (FP) PO SCH (09:47)
[2019-07-16] MEDS: METHOCARBAMOL 500 MG TABLET PO SCH ×4 (09:47→21:34)
[2019-07-16] MEDS: NICOTINE POLACRILEX 4 MG GUM BUC PRN (09:49)
[2019-07-16] MEDS: NICOTINE 21 MG/24 HOURS TOPICAL PATCH TD SCH (09:49)
[2019-07-16 13:14] LABS: ALBUMIN 3.8 g/dl (3.4-5.0); BILIRUBIN,TOTAL 0.6 mg/dL (0.2-1); CALCIUM 9.3 mg/dL (8.5-10.1); CREATININE 0.8 mg/dL (0.55-1.3); POTASSIUM 3.7 mmol/L (3.5-5.1); TOT PROT 6.9 g/dl (6.4-8.2)
[2019-07-16] MEDS: ACETAMINOPHEN 325 MG TABLET (FP) PO PRN ×2 (14:32→21:35)
--- NOTE | 2019-07-16 15:01 | PN ---
S Progress Note Note: Patient eports sleeping poorly despite taking Belsomra 10 mg/hs prn. Requests increase in Belsomra dosage. Belsomra dosage is being increased to 15 mg/hs prn for insomnia
[2019-07-16] MEDS: THIAMINE HCL 100 MG TABLET (FP) PO SCH (21:33)
[2019-07-16] MEDS: MELATONIN 5 MG TABLETS PO SCH (21:34)
[2019-07-16] MEDS: SUVOREXANT 15 MG TABLET PO PRN (21:34)
[2019-07-17] MEDS: ACETAMINOPHEN 325 MG TABLET (FP) PO PRN (10:23)
[2019-07-17] MEDS: METHOCARBAMOL 500 MG TABLET PO SCH ×4 (10:24→21:04)
[2019-07-17] MEDS: PRENATAL VITAMINS W/ FOLIC ACID TABLET (FP) PO SCH (10:24)
[2019-07-17] MEDS: NICOTINE POLACRILEX 4 MG GUM BUC PRN ×2 (10:24→22:10)
[2019-07-17] MEDS: NICOTINE 21 MG/24 HOURS TOPICAL PATCH TD SCH (10:25)
[2019-07-17] MEDS: hydrOXYzine PAMOATE 50 MG CAPSULE (FP) PO PRN ×2 (10:26→21:04)
[2019-07-17] MEDS ORDERED: PT OWN MED DRAWER 7, Y5N ONE (11:04)
[2019-07-17] MEDS: MELATONIN 5 MG TABLETS PO SCH (21:03)
[2019-07-17] MEDS: THIAMINE HCL 100 MG TABLET (FP) PO SCH (21:03)
[2019-07-17] MEDS: SUVOREXANT 15 MG TABLET PO PRN (21:04)
[2019-07-18] MEDS: METHOCARBAMOL 500 MG TABLET PO SCH ×4 (09:35→21:39)
[2019-07-18] MEDS: hydrOXYzine PAMOATE 50 MG CAPSULE (FP) PO PRN ×2 (09:35→21:39)
[2019-07-18] MEDS: ACETAMINOPHEN 325 MG TABLET (FP) PO PRN (09:35)
[2019-07-18] MEDS: PRENATAL VITAMINS W/ FOLIC ACID TABLET (FP) PO SCH (09:35)
[2019-07-18] MEDS: NICOTINE 21 MG/24 HOURS TOPICAL PATCH TD SCH (10:20)
[2019-07-18] MEDS ORDERED: PT OWN MED DRAWER 7, Y5N ONE (10:50)
[2019-07-18] MEDS: THIAMINE HCL 100 MG TABLET (FP) PO SCH (21:39)
[2019-07-18] MEDS: MELATONIN 5 MG TABLETS PO SCH (21:39)
[2019-07-18] MEDS: SUVOREXANT 15 MG TABLET PO PRN (21:40)
[2019-07-18] MEDS: NICOTINE POLACRILEX 4 MG GUM BUC PRN (21:41)
[2019-07-19] MEDS: PRENATAL VITAMINS W/ FOLIC ACID TABLET (FP) PO SCH (09:53)
[2019-07-19] MEDS: NICOTINE 21 MG/24 HOURS TOPICAL PATCH TD SCH (09:54)
[2019-07-19] MEDS: IBUPROFEN 400 MG TABLET (FP) PO PRN ×2 (09:55→21:02)
[2019-07-19] MEDS: hydrOXYzine PAMOATE 50 MG CAPSULE (FP) PO PRN ×3 (09:55→21:02)
--- NOTE | 2019-07-19 10:00 | PN ---
[facility] Progress Note Note: Patient c/o mouth dryness and gum irritation. Denies bleeding and mouth sores. Vital Signs Temperature 97.4 F L 07/19/19 06:53 Pulse Rate 68 07/19/19 06:53 Respiratory Rate 18 07/19/19 06:53 Blood Pressure 102/56 L 07/19/19 06:53 O2 Sat by Pulse Oximetry (%) PE alert and oriented x 3 skin warm and dry oral mucosa pink, no visible ulcerations or inflammation noted A/P: dry mouth Peridex MM ordered BID
[2019-07-19] MEDS: METHOCARBAMOL 500 MG TABLET PO SCH ×4 (10:45→21:02)
[2019-07-19] MEDS: CHLORHEXIDINE GLUCONATE 118 ML MOUTHWASH MM SCH ×2 (11:58→21:04)
[2019-07-19] MEDS: MELATONIN 5 MG TABLETS PO SCH (21:03)
[2019-07-19] MEDS: THIAMINE HCL 100 MG TABLET (FP) PO SCH (21:04)
[2019-07-19] MEDS: SUVOREXANT 15 MG TABLET PO PRN (21:04)
[2019-07-20] MEDS: PRENATAL VITAMINS W/ FOLIC ACID TABLET (FP) PO SCH (09:50)
[2019-07-20] MEDS: METHOCARBAMOL 500 MG TABLET PO SCH ×4 (09:50→21:59)
[2019-07-20] MEDS: hydrOXYzine PAMOATE 50 MG CAPSULE (FP) PO PRN ×2 (09:50→18:17)
[2019-07-20] MEDS: NICOTINE 21 MG/24 HOURS TOPICAL PATCH TD SCH (09:51)
[2019-07-20] MEDS: CHLORHEXIDINE GLUCONATE 118 ML MOUTHWASH MM SCH ×2 (09:51→21:59)
[2019-07-20] MEDS: NICOTINE POLACRILEX 4 MG GUM BUC PRN ×2 (09:53→18:17)
[2019-07-20] MEDS ORDERED: PT OWN MED DRAWER 7, Y5N ONE (20:38)
[2019-07-20] MEDS: MELATONIN 5 MG TABLETS PO SCH (21:59)
[2019-07-20] MEDS: THIAMINE HCL 100 MG TABLET (FP) PO SCH (21:59)
[2019-07-20] MEDS: IBUPROFEN 400 MG TABLET (FP) PO PRN (22:00)
[2019-07-21] MEDS: PRENATAL VITAMINS W/ FOLIC ACID TABLET (FP) PO SCH (09:44)
[2019-07-21] MEDS: NICOTINE POLACRILEX 4 MG GUM BUC PRN ×3 (09:45→21:51)
[2019-07-21] MEDS: METHOCARBAMOL 500 MG TABLET PO SCH ×4 (09:45→21:49)
[2019-07-21] MEDS: CHLORHEXIDINE GLUCONATE 118 ML MOUTHWASH MM SCH ×2 (09:45→21:50)
[2019-07-21] MEDS: NICOTINE 21 MG/24 HOURS TOPICAL PATCH TD SCH (09:45)
[2019-07-21] MEDS ORDERED: PT OWN MED DRAWER 7, Y5N ONE ×2 (09:46→22:23)
[2019-07-21] MEDS: hydrOXYzine PAMOATE 50 MG CAPSULE (FP) PO PRN ×2 (14:12→21:49)
[2019-07-21] MEDS: IBUPROFEN 400 MG TABLET (FP) PO PRN (21:50)
[2019-07-21] MEDS: THIAMINE HCL 100 MG TABLET (FP) PO SCH (21:50)
[2019-07-21] MEDS: MELATONIN 5 MG TABLETS PO SCH (22:21)
[2019-07-22] MEDS: PRENATAL VITAMINS W/ FOLIC ACID TABLET (FP) PO SCH (09:47)
[2019-07-22] MEDS: METHOCARBAMOL 500 MG TABLET PO SCH ×4 (09:47→21:31)
[2019-07-22] MEDS: hydrOXYzine PAMOATE 50 MG CAPSULE (FP) PO PRN ×3 (09:47→21:31)
[2019-07-22] MEDS ORDERED: PT OWN MED DRAWER 7, Y5N ONE ×3 (09:48→19:05)
[2019-07-22] MEDS: NICOTINE 21 MG/24 HOURS TOPICAL PATCH TD SCH (09:48)
[2019-07-22] MEDS: CHLORHEXIDINE GLUCONATE 118 ML MOUTHWASH MM SCH ×2 (09:49→21:31)
[2019-07-22] MEDS: MAG HYDROX/AL HYDROX/SIMETH 30 ML UNIT-DOSE CUP PO PRN (19:05)
[2019-07-22] MEDS: IBUPROFEN 400 MG TABLET (FP) PO PRN (21:31)
[2019-07-22] MEDS: MELATONIN 5 MG TABLETS PO SCH (21:32)
[2019-07-22] MEDS: THIAMINE HCL 100 MG TABLET (FP) PO SCH (21:32)
[2019-07-22] MEDS: SUVOREXANT 15 MG TABLET PO PRN (21:33)
[2019-07-23] MEDS ORDERED: PT OWN MED DRAWER 7, Y5N ONE (09:31)
[2019-07-23] MEDS: PRENATAL VITAMINS W/ FOLIC ACID TABLET (FP) PO SCH (09:38)
[2019-07-23] MEDS: NICOTINE POLACRILEX 4 MG GUM BUC PRN ×2 (09:38→17:06)
[2019-07-23] MEDS: NICOTINE 21 MG/24 HOURS TOPICAL PATCH TD SCH (09:38)
[2019-07-23] MEDS: CHLORHEXIDINE GLUCONATE 118 ML MOUTHWASH MM SCH ×2 (09:38→21:03)
[2019-07-23] MEDS: METHOCARBAMOL 500 MG TABLET PO SCH ×4 (09:38→21:03)
[2019-07-23] MEDS: hydrOXYzine PAMOATE 50 MG CAPSULE (FP) PO PRN ×2 (09:39→21:03)
[2019-07-23] MEDS: IBUPROFEN 400 MG TABLET (FP) PO PRN (14:05)
[2019-07-23] MEDS: MELATONIN 5 MG TABLETS PO SCH (21:03)
[2019-07-23] MEDS: THIAMINE HCL 100 MG TABLET (FP) PO SCH (21:03)
[2019-07-23] MEDS: SUVOREXANT 15 MG TABLET PO PRN (21:03)
[2019-07-24] MEDS: PRENATAL VITAMINS W/ FOLIC ACID TABLET (FP) PO SCH (10:13)
[2019-07-24] MEDS: METHOCARBAMOL 500 MG TABLET PO SCH ×4 (10:13→21:29)
[2019-07-24] MEDS: hydrOXYzine PAMOATE 50 MG CAPSULE (FP) PO PRN ×3 (10:14→21:29)
[2019-07-24] MEDS: CHLORHEXIDINE GLUCONATE 118 ML MOUTHWASH MM SCH ×2 (10:15→21:29)
[2019-07-24] MEDS: NICOTINE 21 MG/24 HOURS TOPICAL PATCH TD SCH (10:15)
[2019-07-24] MEDS: THIAMINE HCL 100 MG TABLET (FP) PO SCH (21:29)
[2019-07-24] MEDS: MELATONIN 5 MG TABLETS PO SCH (21:29)
[2019-07-24] MEDS: IBUPROFEN 400 MG TABLET (FP) PO PRN (21:30)
[2019-07-24] MEDS: SUVOREXANT 15 MG TABLET PO PRN (21:31)
[2019-07-25] MEDS: hydrOXYzine PAMOATE 50 MG CAPSULE (FP) PO PRN ×3 (10:12→21:14)
[2019-07-25] MEDS: CHLORHEXIDINE GLUCONATE 118 ML MOUTHWASH MM SCH ×2 (10:12→21:16)
[2019-07-25] MEDS: NICOTINE 21 MG/24 HOURS TOPICAL PATCH TD SCH (10:12)
[2019-07-25] MEDS: METHOCARBAMOL 500 MG TABLET PO SCH ×4 (10:12→21:14)
[2019-07-25] MEDS: PRENATAL VITAMINS W/ FOLIC ACID TABLET (FP) PO SCH (10:12)
[2019-07-25] MEDS: IBUPROFEN 400 MG TABLET (FP) PO PRN ×2 (14:26→21:13)
[2019-07-25] MEDS: NICOTINE POLACRILEX 4 MG GUM BUC PRN ×2 (14:27→18:09)
[2019-07-25] MEDS: SUVOREXANT 15 MG TABLET PO PRN (21:14)
[2019-07-25] MEDS: MELATONIN 5 MG TABLETS PO SCH (21:14)
[2019-07-25] MEDS: THIAMINE HCL 100 MG TABLET (FP) PO SCH (22:31)
[2019-07-26] MEDS: hydrOXYzine PAMOATE 50 MG CAPSULE (FP) PO PRN ×2 (09:51→21:35)
[2019-07-26] MEDS: PRENATAL VITAMINS W/ FOLIC ACID TABLET (FP) PO SCH (09:51)
[2019-07-26] MEDS: CHLORHEXIDINE GLUCONATE 118 ML MOUTHWASH MM SCH ×2 (09:51→21:37)
[2019-07-26] MEDS: METHOCARBAMOL 500 MG TABLET PO SCH ×4 (09:51→21:35)
[2019-07-26] MEDS: NICOTINE 21 MG/24 HOURS TOPICAL PATCH TD SCH (09:52)
[2019-07-26] MEDS: NICOTINE POLACRILEX 4 MG GUM BUC PRN (10:58)
[2019-07-26] MEDS: IBUPROFEN 400 MG TABLET (FP) PO PRN (13:52)
[2019-07-26] MEDS: THIAMINE HCL 100 MG TABLET (FP) PO SCH (21:35)
[2019-07-26] MEDS: MELATONIN 5 MG TABLETS PO SCH (21:35)
[2019-07-26] MEDS: SUVOREXANT 15 MG TABLET PO PRN (21:36)
[2019-07-27] MEDS: METHOCARBAMOL 500 MG TABLET PO SCH ×4 (10:31→21:01)
[2019-07-27] MEDS: CHLORHEXIDINE GLUCONATE 118 ML MOUTHWASH MM SCH ×2 (10:31→21:02)
[2019-07-27] MEDS: PRENATAL VITAMINS W/ FOLIC ACID TABLET (FP) PO SCH (10:31)
[2019-07-27] MEDS: NICOTINE 21 MG/24 HOURS TOPICAL PATCH TD SCH (10:32)
[2019-07-27] MEDS: SUVOREXANT 15 MG TABLET PO PRN (21:01)
[2019-07-27] MEDS: MELATONIN 5 MG TABLETS PO SCH (21:01)
[2019-07-27] MEDS: hydrOXYzine PAMOATE 50 MG CAPSULE (FP) PO PRN (21:01)
[2019-07-27] MEDS: THIAMINE HCL 100 MG TABLET (FP) PO SCH (21:01)
[2019-07-28] MEDS: PRENATAL VITAMINS W/ FOLIC ACID TABLET (FP) PO SCH (09:24)
[2019-07-28] MEDS: NICOTINE POLACRILEX 4 MG GUM BUC PRN (09:24)
[2019-07-28] MEDS: CHLORHEXIDINE GLUCONATE 118 ML MOUTHWASH MM SCH ×2 (09:24→21:37)
[2019-07-28] MEDS: NICOTINE 21 MG/24 HOURS TOPICAL PATCH TD SCH (09:24)
[2019-07-28] MEDS: METHOCARBAMOL 500 MG TABLET PO SCH ×4 (09:24→21:35)
[2019-07-28] MEDS: hydrOXYzine PAMOATE 50 MG CAPSULE (FP) PO PRN ×2 (09:26→21:35)
[2019-07-28] MEDS: THIAMINE HCL 100 MG TABLET (FP) PO SCH (21:35)
[2019-07-28] MEDS: MELATONIN 5 MG TABLETS PO SCH (21:35)
[2019-07-28] MEDS: SUVOREXANT 15 MG TABLET PO PRN (21:36)
[2019-07-29] MEDS: hydrOXYzine PAMOATE 50 MG CAPSULE (FP) PO PRN ×2 (09:27→21:03)
[2019-07-29] MEDS: METHOCARBAMOL 500 MG TABLET PO SCH ×4 (09:27→21:04)
[2019-07-29] MEDS: PRENATAL VITAMINS W/ FOLIC ACID TABLET (FP) PO SCH (09:27)
[2019-07-29] MEDS: NICOTINE 21 MG/24 HOURS TOPICAL PATCH TD SCH (09:29)
[2019-07-29] MEDS: CHLORHEXIDINE GLUCONATE 118 ML MOUTHWASH MM SCH ×2 (10:41→22:07)
[2019-07-29] MEDS: IBUPROFEN 400 MG TABLET (FP) PO PRN (14:35)
[2019-07-29] MEDS: THIAMINE HCL 100 MG TABLET (FP) PO SCH (21:03)
[2019-07-29] MEDS ORDERED: PT OWN MED DRAWER 7, Y5N ONE (21:03)
[2019-07-29] MEDS: MELATONIN 5 MG TABLETS PO SCH (21:04)
[2019-07-29] MEDS ORDERED: SUVOREXANT 15 MG TABLET PO PRN (22:00)
[2019-07-30 07:59] VITALS: BP 111/63; PULSE 68; TEMP 97.8
--- NOTE | 2019-07-30 09:15 | DS ---
[facility] Rehab Discharge Summary - [facility] Rehab Discharge Summary Admission Date: 07/12/19 Discharge Date: 07/30/19 - History Present History: Alcohol dependence, Cannabis dependence Pertinent Past History: ths 34 yers old male with alcohol,cocaine and marijuana dependence, first time to this facility denied seizure denied syncope last detox at age 16 years no significant period of sobriety - Discharge Physical Exam Vital Signs: Vital Signs Temperature 97.8 F 07/30/19 07:58 Pulse Rate 68 07/30/19 07:58 Respiratory Rate 18 07/30/19 07:58 Blood Pressure 111/63 07/30/19 07:58 O2 Sat by Pulse Oximetry (%) Pertinent Admission Physical Exam Findings: ths 34 yers old male with alcohol,cocaine and marijuana dependence,seeking detox,withdrawal symptom, first time to this facility denied seizure denied syncope last detox at age 16 years no significant period of sobriety - Treatment Discharge Condition: Outpatient referral accepted ([facility] for [facility].) Hospital Course: patient attended groups, had 1;1 with his counselor, was adherent to his medication regimen and treatment plan, was seen by the psychiatric service. He had no acute or urgent medical issues while in rehab. - Medication Discharge Medications: Ambulatory Orders NK [No Known Home Medication] 07/07/19 - Medication-Assisted Treatment (MAT) Medication-Assisted Treatment (MAT): No - Discharge Instructions Diet, activity, other medical instructions: Diet: As tolerated Activity: as tolerated Other medical instructions: Please follow up with your aftercare referral. - Diagnosis (1) Alcohol dependence Current Visit: Yes Status: Acute (2) Cannabis dependence Current Visit: No Status: Chronic (3) Cocaine dependence Current Visit: No Status: Chronic - Follow-up Referral Minutes to complete discharge: 15 - AMA Did Patient Leave Against Medical Advice: No
[2019-07-30] MEDS: NICOTINE 21 MG/24 HOURS TOPICAL PATCH TD SCH (09:22)
[2019-07-30] MEDS: CHLORHEXIDINE GLUCONATE 118 ML MOUTHWASH MM SCH (09:22)
[2019-07-30] MEDS: PRENATAL VITAMINS W/ FOLIC ACID TABLET (FP) PO SCH (09:22)
[2019-07-30] MEDS: hydrOXYzine PAMOATE 50 MG CAPSULE (FP) PO PRN (09:22)
[2019-07-30] MEDS: METHOCARBAMOL 500 MG TABLET PO SCH (09:22)
== END 2019-07-30 09:29 | disposition home or self-care (01) | DRG 772 ==
LOC: YASAS 14:15 → Y3W 14:16
PROVIDERS: ADMIT Allergy & Immunology; ATTEND Allergy & Immunology
PROC: HZ42ZZZ Group Counseling for Substance Abuse Treatment, Cognitive-Behavioral (ICD-10-PCS; principal; 2019-07-12)
DX: F10.20 Alcohol dependence, uncomplicated (principal); F14.20 Cocaine dependence, uncomplicated; F12.20 Cannabis dependence, uncomplicated; F17.220 Nicotine dependence, chewing tobacco, uncomplicated; F19.282 Other psychoactive substance dependence with psychoactive substance-induced sleep disorder; J45.909 Unspecified asthma, uncomplicated; R68.2 Dry mouth, unspecified; Z62.810 Personal history of physical and sexual abuse in childhood; Z91.410 Personal history of adult physical and sexual abuse; Z56.0 Unemployment, unspecified; Z59.0 Homelessness
CPT/HCPCS: 36415; 80053

== ENCOUNTER 2019-12-17 10:27 | Inpatient (IN) | payer OTHER ==
--- NOTE | 2019-12-17 10:59 | BHS.RME ---
Substance Use & Tx History - Substance Use History Alcohol Substance amount: 3 pints vodka Frequency of use: Daily Substance route: Oral Date of Last Use: 12/17/19 Cocaine-Crack Substance amount: $140 Frequency of use: Daily Substance route: Smoking Date of Last Use: 12/16/19 Marijuana/Hashish Substance amount: $40 Frequency of use: Daily Substance route: Smoking Date of Last Use: 12/16/19 Physical/Psych/Mental Status - Behavior General Behavior: Increased activity (restlessness, agitation) Eye Contact: Normal - Cooperativeness Cooperativeness: Cooperative - Thinking Thought Processes: Tight, Logical, Goal Directed - Physical Health Problems Is patient presently having any pain?: No Does patient presently have any injuries (include location): No Does patient currently have a fever: No Is patient : No CIWA Nausea/Vomitin-No Nausea/No Vomiting Muscle Tremors: 1-None Visible, but [place] Anxiety: 1-Mildly Anxious Agitation: 1-Slight > Activity Paroxysmal Sweats: 4-Forehead w/Sweat Beads Orientation: 0-Oriented Tacttile Disturbances: 0-None Auditory Disturbances: 0-None Visual Disturbances: 0-None Headache: 2-Mild CIWA-Ar Total Score: 9
--- NOTE | 2019-12-17 11:21 | HP ---
CIWA Score Nausea/Vomitin-No Nausea/No Vomiting Muscle Tremors: 1-None Visible, but [place] Anxiety: 1-Mildly Anxious Agitation: 1-Slight > Activity Paroxysmal Sweats: 4-Forehead w/Sweat Beads Orientation: 0-Oriented Tacttile Disturbances: 0-None Auditory Disturbances: 0-None Visual Disturbances: 0-None Headache: 2-Mild CIWA-Ar Total Score: 9 - Admission Criteria OASAS Guidelines: Admission for Medically Managed Detox: Requires at least one of the followin. CIWA greater than 12 2. Seizures within the past 24 hours 3. Delirium tremens within the past 24 hours 4. Hallucinations within the past 24 hours 5. Acute intervention needed for co occurring medical disorder 6. Acute intervention needed for co occurring psychiatric disorder 7. Severe withdrawal that cannot be handled at a lower level of care (continued vomiting, continued diarrhea, abnormal vital signs) requiring intravenous medication and/or fluids 8. Admitting History and Physical - Admission Chief Complaint: Mr. Mahmood is a 34 yo man who presents to [facility] requesting admission to detox for alcohol use disorder. History of Present Illness: Mr. Mahmood is a 34 yo man who presents to [facility] requesting admission to detox for alcohol use disorder. He was last here on December 03, however, there were no beds available and he was referred out. PMH/PSH/Psych/Legal: none SOC: homeless on streets Substance Use History Alcohol Substance amount: 3 pints vodka Frequency of use: Daily Substance route: Oral Date of Last Use: 12/17/19 First use at age 12 y. No seizures, blackouts. 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 Cocaine-Crack Substance amount: $140 Frequency of use: Daily Substance route: Smoking Date of Last Use: 12/16/19 First use viviana 16 y Marijuana/Hashish Substance amount: $40 Frequency of use: Daily Substance route: Smoking Date of Last Use: 12/16/19 First use age 18 y Methamphetamine: began recently, does not buy, smokes 2 bags qod, last use 2 days ago History Source: Patient Limitations to Obtaining History: No Limitations - Past Surgical History Past Surgical History: Yes: None - Smoking History Smoking history: Current every day smoker Have you smoked in the past 12 months: Yes Aproximately how many cigarettes per day: 10 - Alcohol/Substance Use Hx Alcohol Use: Yes History of Substance Use: reports: Cocaine, Marijuana - Social History ADL: Independent Occupation: unemployed History of Recent Travel: No Admission ROS [facility] - HPI Allergies/Adverse Reactions: Allergies Allergy/AdvReac Type Severity Reaction Status Date / Time No Known Allergies Allergy Verified 09/20/19 13:14 Exam Limitations: No Limitations - Ebola screening Have you traveled outside of the country in the last 21 days: No Have you been sick,other than usual withdrawal symptoms: No Do you have a fever: No - Review of Systems Constitutional: Changes in sleep (trouble sleeping) EENT: reports: No Symptoms Reported Respiratory: reports: No Symptoms reported Cardiac: reports: No Symptoms Reported GI: reports: No Symptoms Reported : reports: No Symptoms Reported Musculoskeletal: reports: Back Pain Integumentary: reports: No Symptoms Reported Neuro: reports: Headache Hematology: reports: No Symptoms Reported Psychiatric: reports: Anxious Patient History - Patient Medical History Hx Anemia: No Hx Asthma: No Hx Chronic Obstructive Pulmonary Disease (COPD): No Hx Cancer: No Hx Cardiac Disorders: No Hx Congestive Heart Failure: No Hx Hypertension: No Hx Hypercholesterolemia: No Hx Pacemaker: No HX Cerebrovascular Accident: No Hx Seizures: No Hx Dementia: No Hx Diabetes: No Hx Gastrointestinal Disorders: No Hx Liver Disease: No Hx Genitourinary Disorders: No Hx Sexually Transmitted Disorders: No Hx Renal Disease (ESRD): No Hx Thyroid Disease: No Hx Human Immunodeficiency Virus (HIV): No (last 06/2019 negative) Hx Hepatitis C: No Hx Depression: Yes Hx Suicide Attempt: No Hx Bipolar Disorder: No Hx Schizophrenia: No - Patient Surgical History Past Surgical History: No Hx Neurologic Surgery: No Hx Cataract Extraction: No Hx Cardiac Surgery: No Hx Lung Surgery: No Hx Breast Surgery: No Hx Breast Biopsy: No Hx Abdominal Surgery: No Hx Appendectomy: No Hx Cholecystectomy: No Hx Genitourinary Surgery: No Hx Section: No Hx Orthopedic Surgery: No Anesthesia Reaction: No - PPD History Date: 07/09/19 - Smoking Cessation Smoking history: Current every day smoker Have you smoked in the past 12 months: Yes Aproximately how many cigarettes per day: 10 Cigars Per Day: 10 Hx Chewing Tobacco Use: No Initiated information on smoking cessation: Yes 'Breaking Loose' booklet given: 12/17/19 Admission Physical Exam [facility] - Physical General Appearance: Yes: No Apparent Distress, Nourished, Appropriately Dressed HEENTM: Yes: EOMI, Hearing grossly Normal, Normocephalic, Normal Voice Respiratory: Yes: Lungs Clear, Normal Breath Sounds, No Respiratory Distress, No Accessory Muscle Use Neck: Yes: Within Normal Limits, Supple Breast: Yes: Breast Exam Deferred Cardiology: Yes: Regular Rhythm, Regular Rate, S1, S2 Abdominal: Yes: Non Tender, Flat, Soft, Decreased BS Back: Yes: Normal Inspection Musculoskeletal: Yes: Gait Steady Extremities: Yes: Normal Inspection, Non-Tender Neurological: Yes: Alert, Normal Response Integumentary: Yes: Normal Color, Dry, Warm - Diagnostic (1) Alcohol dependence with uncomplicated withdrawal Current Visit: Yes Status: Acute (2) Cannabis dependence Current Visit: Yes Status: Acute (3) Cocaine dependence Current Visit: Yes Status: Acute Qualifiers: Substance use status: uncomplicated Qualified Code(s): F14.20 - Cocaine dependence, uncomplicated (4) Insomnia Current Visit: Yes Status: Chronic (5) Nicotine dependence Current Visit: No Status: Chronic Qualifiers: Nicotine product type: cigarettes Substance use status: uncomplicated Qualified Code(s): F17.210 - Nicotine dependence, cigarettes, uncomplicated Cleared for Admission S - Detox or Rehab [facility] Level of Care: Medically Managed Detox Regimen/Protocol: Librium Breathalyzer - Breathalyzer Breathalyzer: 0 Urine Drug Screen - Test Device Lot number: [id number] Expiration date: 12/23/21 - Control Is test valid?: Yes - Results Drug screen NEGATIVE: No Urine drug screen results: THC-Marijuana, ANA-Cocaine, MET-Methamphetamine, AMP- Amphetamines Inpatient Rehab Admission - Rehab Decision to Admit Inpatient rehab admission?: No
[2019-12-17] MEDS ORDERED: MENTHOL/PHENOL 1 EACH UD MM PRN (11:35)
[2019-12-17] MEDS ORDERED: MAGNESIUM HYDROX 2400MG/30ML ORAL SUSPENSION 30 ML CUP PO PRN (11:35)
[2019-12-17] MEDS ORDERED: NICOTINE POLACRILEX 2 MG GUM BUC PRN (11:35)
[2019-12-17] MEDS ORDERED: MAG HYDROX/AL HYDROX/SIMETH 30 ML UNIT-DOSE CUP PO PRN (11:35)
[2019-12-17] MEDS ORDERED: IBUPROFEN 400 MG TABLET (FP) PO PRN (11:35)
[2019-12-17] MEDS ORDERED: chlordiazePOXIDE HCL 25 MG CAPSULE PO PRN (11:35)
[2019-12-17] MEDS ORDERED: MAGNESIUM CITRATE 300 ML BOTTLE PO PRN (11:35)
[2019-12-17] MEDS ORDERED: BISMUTH SUBSALICYLATE 262 MG/15 ML BTL PO PRN (11:35)
[2019-12-17] MEDS ORDERED: ACETAMINOPHEN 325 MG TABLET (FP) PO PRN ×2 (11:35)
[2019-12-17] MEDS ORDERED: ONDANSETRON *ODT* 4 MG TABLET SL PRN (11:35)
[2019-12-17 11:39] VITALS: BMI 26.3
[2019-12-17] MEDS: NICOTINE 21 MG/24 HOURS TOPICAL PATCH TD SCH (13:15)
[2019-12-17] MEDS: hydrOXYzine PAMOATE 25 MG CAPSULE (FP) PO SCH ×3 (13:20→22:16)
[2019-12-17] MEDS: METHOCARBAMOL 500 MG TABLET PO PRN (13:20)
[2019-12-17 15:26] LABS: HEMATOCRIT 44.1 % (35.4-49); HEMOGLOBIN 14.5 GM/dL (11.7-16.9); MCH 31.1 pg (25.7-33.7); MCHC 32.8 g/dl (32.0-35.9); MEAN CELL VOLUME 94.7 fl (80-96); MEAN PLT VOLUME 8.5 fl (7.5-11.1); PLATELET COUNT 183 K/MM3 (134-434); RBC 4.66 M/mm3 (4.00-5.60); RDW 13.9 % (11.9-15.9); WHITE BLOOD COUNT 6.6 K/mm3 (4.0-10.0)
[2019-12-17 15:35] LABS: ALBUMIN 4.1 g/dl (3.4-5.0); BILIRUBIN,TOTAL 0.7 mg/dL (0.2-1); BLOOD UREA NITROGEN 19.2 mg/dL (7-18); CALCIUM 8.8 mg/dL (8.5-10.1); CREATININE 0.9 mg/dL (0.55-1.3); POTASSIUM 3.7 mmol/L (3.5-5.1); TOT PROT 7.2 g/dl (6.4-8.2)
[2019-12-17] MEDS: chlordiazePOXIDE HCL 25 MG CAPSULE PO SCH ×2 (18:07→22:15)
[2019-12-17] MEDS: THIAMINE HCL 100 MG TABLET (FP) PO SCH (22:15)
[2019-12-17] MEDS: MELATONIN 5 MG TABLETS PO SCH (22:24)
[2019-12-18] MEDS: chlordiazePOXIDE HCL 25 MG CAPSULE PO SCH ×4 (06:04→22:28)
[2019-12-18] MEDS: METHOCARBAMOL 500 MG TABLET PO PRN ×3 (06:04→22:27)
[2019-12-18] MEDS: hydrOXYzine PAMOATE 25 MG CAPSULE (FP) PO SCH ×5 (06:04→22:27)
[2019-12-18] MEDS: PRENATAL VITAMINS W/ FOLIC ACID TABLET (FP) PO SCH (10:17)
[2019-12-18] MEDS: NICOTINE 21 MG/24 HOURS TOPICAL PATCH TD SCH (10:17)
--- NOTE | 2019-12-18 11:53 | PN ---
S CIWA - CIWA Score Nausea/Vomitin-No Nausea/No Vomiting Muscle Tremors: 3 Anxiety: 4-Mod. Anxious/Guarded Agitation: 3 Paroxysmal Sweats: 3 Orientation: 0-Oriented Tacttile Disturbances: 0-None Auditory Disturbances: 0-None Visual Disturbances: 0-None Headache: 0-None Present CIWA-Ar Total Score: 13 [facility] Progress Note (SOAP) Subjective: Pt is a 34 y/o male admitted to detox for alcohol withdrawal sx. c/o Sweats Tremors back ache Intermittent sleep Objective: 12/18/19 11:49 Vital Signs - 24 hr 12/17/19 12/17/19 12/17/19 13:12 17:15 21:00 Temperature 98.2 F 98.2 F 97.8 F Pulse Rate 72 64 70 Respiratory 18 18 18 Rate Blood Pressure 114/67 108/67 116/68 O2 Sat by Pulse 97 98 Oximetry (%) 12/18/19 05:58 Temperature 97.8 F Pulse Rate 75 Respiratory 18 Rate Blood Pressure 102/65 O2 Sat by Pulse 95 Oximetry (%) Laboratory Tests 12/17/19 12/17/19 12/17/19 11:30 11:30 11:30 WBC 6.6 RBC 4.66 Hgb 14.5 Hct 44.1 MCV 94.7 MCH 31.1 MCHC 32.8 RDW 13.9 Plt Count 183 MPV 8.5 Sodium 142 Potassium 3.7 Chloride 106 Carbon Dioxide 28 Anion Gap 9 BUN 19.2 H Creatinine 0.9 Est GFR (CKD-EPI)AfAm 129.61 Est GFR (CKD-EPI)NonAf 111.83 Random Glucose 93 Calcium 8.8 Total Bilirubin 0.7 AST 16 ALT 22 Alkaline Phosphatase 59 Total Protein 7.2 Albumin 4.1 Syphilis Serology Non-reactive COVID-19 ([facility]) HIV Ag/Ab Combo Qual 12/17/19 12/17/19 11:45 12:30 WBC RBC Hgb Hct MCV MCH MCHC RDW Plt Count MPV Sodium Potassium Chloride Carbon Dioxide Anion Gap BUN Creatinine Est GFR (CKD-EPI)AfAm Est GFR (CKD-EPI)NonAf Random Glucose Calcium Total Bilirubin AST ALT Alkaline Phosphatase Total Protein Albumin Syphilis Serology COVID-19 ([facility]) Not detected HIV Ag/Ab Combo Qual Negative Covid-19 not detected alert o x 3 nad seen in bed but awake and communicating needs coherently. Assessment: 12/18/19 11:52 withdrawal sx Plan: cont detox increase po fluids maintain safety robaxin prn as directed
[2019-12-18 14:57] LABS: PH,URINE 6.5 (5.0-8.0); URINE APPEARANCE CLEAR; URINE BILIRUBIN NEGATIVE (NEGATIVE); URINE COLOR YELLOW; URINE GLUCOSE (UA) NEGATIVE (NEGATIVE); URINE KETONE NEGATIVE (NEGATIVE); URINE LEUK ESTERASE NEGATIVE (NEGATIVE); URINE NITRITE NEGATIVE (NEGATIVE); URINE PROTEIN NEGATIVE (NEGATIVE); URINE UROBILINOGEN 0.2 mg/dL (0.2-1.0)
[2019-12-18] MEDS: THIAMINE HCL 100 MG TABLET (FP) PO SCH (22:27)
[2019-12-18] MEDS: MELATONIN 5 MG TABLETS PO SCH (22:27)
[2019-12-19] MEDS: chlordiazePOXIDE HCL 25 MG CAPSULE PO SCH ×2 (06:40→11:25)
[2019-12-19] MEDS: hydrOXYzine PAMOATE 25 MG CAPSULE (FP) PO SCH ×3 (06:40→13:50)
[2019-12-19 09:33] VITALS: BP 107/69; PULSE 71; TEMP 97.7
[2019-12-19] MEDS: PRENATAL VITAMINS W/ FOLIC ACID TABLET (FP) PO SCH (11:24)
[2019-12-19] MEDS: NICOTINE 21 MG/24 HOURS TOPICAL PATCH TD SCH (11:24)
[2019-12-19] MEDS: METHOCARBAMOL 500 MG TABLET PO PRN (13:50)
--- NOTE | 2019-12-19 14:37 | PN ---
S CIWA - CIWA Score Nausea/Vomitin-No Nausea/No Vomiting Muscle Tremors: 3 Anxiety: 2 Agitation: 3 Paroxysmal Sweats: 1-Minimal Palms Moist Orientation: 0-Oriented Tacttile Disturbances: 0-None Auditory Disturbances: 0-None Visual Disturbances: 0-None Headache: 0-None Present CIWA-Ar Total Score: 9 [facility] Progress Note (SOAP) Subjective: Pt is a 34 y/o male admitted to detox for alcohol withdrawal sx. Pt on Librium taper. c/o Anxiety Body aches intermittent sleep Objective: 12/19/19 15:01 Vital Signs - 24 hr 12/18/19 12/18/19 12/19/19 16:50 20:19 07:00 Temperature 97.7 F 97.5 F L 98.0 F Pulse Rate 66 67 59 L Respiratory 18 18 18 Rate Blood Pressure 101/67 101/51 L 94/67 O2 Sat by Pulse 98 98 Oximetry (%) 12/19/19 08:44 Temperature 97.7 F Pulse Rate 71 Respiratory 18 Rate Blood Pressure 107/69 O2 Sat by Pulse Oximetry (%) Laboratory Tests 12/17/19 12/17/19 12/17/19 11:30 11:30 11:30 WBC 6.6 RBC 4.66 Hgb 14.5 Hct 44.1 MCV 94.7 MCH 31.1 MCHC 32.8 RDW 13.9 Plt Count 183 MPV 8.5 Sodium 142 Potassium 3.7 Chloride 106 Carbon Dioxide 28 Anion Gap 9 BUN 19.2 H Creatinine 0.9 Est GFR (CKD-EPI)AfAm 129.61 Est GFR (CKD-EPI)NonAf 111.83 Random Glucose 93 Calcium 8.8 Total Bilirubin 0.7 AST 16 ALT 22 Alkaline Phosphatase 59 Total Protein 7.2 Albumin 4.1 Urine Color Urine Appearance Urine pH Ur Specific [place] Urine Protein Urine Glucose (UA) Urine Ketones Urine Blood Urine Nitrite Urine Bilirubin Urine Urobilinogen Ur Leukocyte Esterase Syphilis Serology Non-reactive COVID-19 ([facility]) HIV Ag/Ab Combo Qual 12/17/19 12/17/19 12/18/19 11:45 12:30 12:00 WBC RBC Hgb Hct MCV MCH MCHC RDW Plt Count MPV Sodium Potassium Chloride Carbon Dioxide Anion Gap BUN Creatinine Est GFR (CKD-EPI)AfAm Est GFR (CKD-EPI)NonAf Random Glucose Calcium Total Bilirubin AST ALT Alkaline Phosphatase Total Protein Albumin Urine Color Yellow Urine Appearance Clear Urine pH 6.5 Ur Specific [place] 1.017 Urine Protein Negative Urine Glucose (UA) Negative Urine Ketones Negative Urine Blood Negative Urine Nitrite Negative Urine Bilirubin Negative Urine Urobilinogen 0.2 Ur Leukocyte Esterase Negative Syphilis Serology COVID-19 ([facility]) Not detected HIV Ag/Ab Combo Qual Negative Labs noted covid-19 not detected alert o x 3 nad oob ambulating with steady gait Assessment: 12/19/19 15:01 withdrawal sx Plan: cont detox increase po fluids maintain safety
--- NOTE | 2019-12-19 15:37 | DS ---
[facility] Detox Discharge Summary Admission Date: 12/17/19 Discharge Date: 12/19/19 - History Present History: Alcohol Dependence, Cannabis Dependence, Cocaine Dependence Additional Comments: Pt declined to complete detox stating "I have to go see about my daughter who is with that woman. I'm going to go fight for my daughter. i came here by myself and i wanna leave by myself". Pt met with his counselor, Ms Judi Álvarez for CD aftercare referral follow up. Pertinent Past History: Asthma(no current med) - Physical Exam Results Vital Signs: Vital Signs Temperature 97.7 F 12/19/19 08:44 Pulse Rate 71 12/19/19 08:44 Respiratory Rate 18 12/19/19 08:44 Blood Pressure 107/69 12/19/19 08:44 O2 Sat by Pulse Oximetry (%) 98 12/19/19 07:00 Alert o x 3 nad oob ambulating with steady gait Active ROM all extremities. Pertinent Admission Physical Exam Findings: Laboratory Tests 12/17/19 12/17/19 12/17/19 11:30 11:30 11:30 WBC 6.6 RBC 4.66 Hgb 14.5 Hct 44.1 MCV 94.7 MCH 31.1 MCHC 32.8 RDW 13.9 Plt Count 183 MPV 8.5 Sodium 142 Potassium 3.7 Chloride 106 Carbon Dioxide 28 Anion Gap 9 BUN 19.2 H Creatinine 0.9 Est GFR (CKD-EPI)AfAm 129.61 Est GFR (CKD-EPI)NonAf 111.83 Random Glucose 93 Calcium 8.8 Total Bilirubin 0.7 AST 16 ALT 22 Alkaline Phosphatase 59 Total Protein 7.2 Albumin 4.1 Urine Color Urine Appearance Urine pH Ur Specific [place] Urine Protein Urine Glucose (UA) Urine Ketones Urine Blood Urine Nitrite Urine Bilirubin Urine Urobilinogen Ur Leukocyte Esterase Syphilis Serology Non-reactive COVID-19 ([facility]) HIV Ag/Ab Combo Qual 12/17/19 12/17/19 12/18/19 11:45 12:30 12:00 WBC RBC Hgb Hct MCV MCH MCHC RDW Plt Count MPV Sodium Potassium Chloride Carbon Dioxide Anion Gap BUN Creatinine Est GFR (CKD-EPI)AfAm Est GFR (CKD-EPI)NonAf Random Glucose Calcium Total Bilirubin AST ALT Alkaline Phosphatase Total Protein Albumin Urine Color Yellow Urine Appearance Clear Urine pH 6.5 Ur Specific [place] 1.017 Urine Protein Negative Urine Glucose (UA) Negative Urine Ketones Negative Urine Blood Negative Urine Nitrite Negative Urine Bilirubin Negative Urine Urobilinogen 0.2 Ur Leukocyte Esterase Negative Syphilis Serology COVID-19 ([facility]) Not detected HIV Ag/Ab Combo Qual Negative - Treatment Hospital Course: Discharged Condition Good, Rehab Referral Accepted Patient has Accepted a Rehab Referral to: [facility] IOP - Medication Discharge Medications: Ambulatory Orders NK [No Known Home Medication] 07/07/19 - Diagnosis (1) Alcohol dependence with uncomplicated withdrawal Current Visit: Yes Status: Acute (2) Cannabis dependence Current Visit: Yes Status: Acute (3) Cocaine dependence Current Visit: Yes Status: Acute Qualifiers: Substance use status: uncomplicated Qualified Code(s): F14.20 - Cocaine dependence, uncomplicated (4) Bronchial asthma Current Visit: Yes Status: Suspected Qualifiers: Asthma severity: unspecified severity Asthma persistence: unspecified Asthma complication type: unspecified Qualified Code(s): J45.909 - Unspecified asthma, uncomplicated (5) Nicotine dependence Current Visit: No Status: Chronic Qualifiers: Nicotine product type: cigarettes Substance use status: uncomplicated Qualified Code(s): F17.210 - Nicotine dependence, cigarettes, uncomplicated - AMA Did Patient Leave Against Medical Advice: Yes
[2019-12-20] MEDS ORDERED: chlordiazePOXIDE HCL 10 MG CAPSULE PO PRN
[2019-12-20] MEDS ORDERED: chlordiazePOXIDE HCL 10 MG CAPSULE PO SCH (05:00)
[2019-12-21] MEDS ORDERED: chlordiazePOXIDE HCL 10 MG CAPSULE PO SCH (05:00)
[2019-12-22] MEDS ORDERED: chlordiazePOXIDE HCL 10 MG CAPSULE PO ONE (05:00)
== END 2019-12-19 15:55 | disposition left against medical advice (07) | DRG 770 ==
LOC: YASAS 10:27 → Y5N DETOX 12:17
PROVIDERS: ADMIT Allergy & Immunology; ATTEND Allergy & Immunology
PROC: HZ2ZZZZ Detoxification Services for Substance Abuse Treatment (ICD-10-PCS; principal; 2019-12-17)
DX: F10.230 Alcohol dependence with withdrawal, uncomplicated (principal); F14.20 Cocaine dependence, uncomplicated; F12.20 Cannabis dependence, uncomplicated; F15.10 Other stimulant abuse, uncomplicated; F17.210 Nicotine dependence, cigarettes, uncomplicated; G47.00 Insomnia, unspecified; J45.909 Unspecified asthma, uncomplicated; Z59.0 Homelessness
CPT/HCPCS: 36415; 80053; 81003; 85027; 86780; 87389; U0003

== ENCOUNTER 2020-06-18 09:15 | Inpatient (IN) | payer OTHER ==
[2020-06-18 10:49] VITALS: BMI 26.4
[2020-06-18] MEDS ORDERED: LOPERAMIDE HCL 2 MG CAPSULE PO PRN (14:44)
[2020-06-18] MEDS ORDERED: MAG HYDROX/AL HYDROX/SIMETH 30 ML UNIT-DOSE CUP PO PRN (14:44)
[2020-06-18] MEDS ORDERED: IBUPROFEN 400 MG TABLET (FP) PO PRN (14:44)
[2020-06-18] MEDS ORDERED: guaiFENesin 200 MG/10 ML 10 ML UNIT-DOSE CUPS PO PRN (14:44)
[2020-06-18] MEDS ORDERED: MAGNESIUM CITRATE 300 ML BOTTLE PO PRN (14:44)
[2020-06-18] MEDS ORDERED: P-EPHED 60MG/TRIPROLIDI 2.5MG TABLET PO PRN (14:44)
[2020-06-18] MEDS ORDERED: MAGNESIUM HYDROX 2400MG/30ML ORAL SUSPENSION 30 ML CUP PO PRN (14:44)
[2020-06-18 17:21] LABS: HEMATOCRIT 43.3 % (35.4-49); HEMOGLOBIN 14.5 GM/dL (11.7-16.9); MCHC 33.5 g/dl (32.0-35.9); MEAN CELL VOLUME 95.6 fl (80-96); MEAN PLT VOLUME 8.2 fl (7.5-11.1); PLATELET COUNT 242 K/MM3 (134-434); RBC 4.53 M/mm3 (4.00-5.60); RDW 14.2 % (11.9-15.9); WHITE BLOOD COUNT 8.6 K/mm3 (4.0-10.0)
[2020-06-18 17:24] LABS: POTASSIUM 3.7 mmol/L (3.5-5.1)
[2020-06-18 17:31] LABS: ALBUMIN 4.5 g/dl (3.4-5.0); BLOOD UREA NITROGEN 29.3 mg/dL (7-18); CALCIUM 9.2 mg/dL (8.5-10.1)
[2020-06-18 17:36] LABS: BILIRUBIN,TOTAL 0.7 mg/dL (0.2-1); TOT PROT 7.8 g/dl (6.4-8.2)
[2020-06-18] MEDS: hydrOXYzine PAMOATE 25 MG CAPSULE (FP) PO SCH ×2 (19:55→21:09)
[2020-06-18] MEDS: MELATONIN 5 MG TABLETS PO SCH (21:09)
[2020-06-18] MEDS: THIAMINE HCL 100 MG TABLET (FP) PO SCH (21:09)
[2020-06-19] MEDS: hydrOXYzine PAMOATE 25 MG CAPSULE (FP) PO SCH ×5 (06:45→21:48)
[2020-06-19] MEDS: PRENATAL VITAMINS W/ FOLIC ACID TABLET (FP) PO SCH (09:35)
[2020-06-19] MEDS: NICOTINE POLACRILEX 2 MG GUM BUC PRN ×2 (09:37→21:50)
[2020-06-19] MEDS: NICOTINE 7 MG/24 HOURS TOPICAL PATCH TD SCH (09:37)
[2020-06-19] MEDS ORDERED: FLU VACCINE (FLULAVAL) PF 60 MCG/0.5 ML SYRINGE 2020-2021 IM ONE (12:00)
[2020-06-19] MEDS: METHOCARBAMOL 500 MG TABLET PO SCH ×2 (14:42→21:49)
[2020-06-19 17:06] LABS: PH,URINE 6.5 (5.0-8.0); URINE APPEARANCE CLEAR; URINE BILIRUBIN NEGATIVE (NEGATIVE); URINE COLOR YELLOW; URINE GLUCOSE (UA) NEGATIVE (NEGATIVE); URINE KETONE NEGATIVE (NEGATIVE); URINE LEUK ESTERASE NEGATIVE (NEGATIVE); URINE NITRITE NEGATIVE (NEGATIVE); URINE PROTEIN NEGATIVE (NEGATIVE); URINE UROBILINOGEN 0.2 mg/dL (0.2-1.0)
[2020-06-19] MEDS: THIAMINE HCL 100 MG TABLET (FP) PO SCH (21:48)
[2020-06-19] MEDS: MELATONIN 5 MG TABLETS PO SCH (21:48)
[2020-06-20] MEDS: METHOCARBAMOL 500 MG TABLET PO SCH ×3 (06:02→21:03)
[2020-06-20] MEDS: hydrOXYzine PAMOATE 25 MG CAPSULE (FP) PO SCH ×5 (06:02→21:04)
[2020-06-20] MEDS ORDERED: MASKS NR ONE (07:09)
[2020-06-20] MEDS: NICOTINE 7 MG/24 HOURS TOPICAL PATCH TD SCH (09:40)
[2020-06-20] MEDS: PRENATAL VITAMINS W/ FOLIC ACID TABLET (FP) PO SCH (09:40)
[2020-06-20] MEDS: NICOTINE POLACRILEX 2 MG GUM BUC PRN ×3 (09:41→21:04)
[2020-06-20] MEDS: ACETAMINOPHEN 325 MG TABLET (FP) PO PRN (18:10)
[2020-06-20] MEDS: MELATONIN 5 MG TABLETS PO SCH (21:03)
[2020-06-20] MEDS: THIAMINE HCL 100 MG TABLET (FP) PO SCH (21:04)
[2020-06-21] MEDS: METHOCARBAMOL 500 MG TABLET PO SCH ×3 (06:04→21:50)
[2020-06-21] MEDS: hydrOXYzine PAMOATE 25 MG CAPSULE (FP) PO SCH ×5 (06:04→21:51)
[2020-06-21] MEDS: NICOTINE 7 MG/24 HOURS TOPICAL PATCH TD SCH (09:34)
[2020-06-21] MEDS: PRENATAL VITAMINS W/ FOLIC ACID TABLET (FP) PO SCH (09:34)
[2020-06-21] MEDS: NICOTINE POLACRILEX 2 MG GUM BUC PRN (17:59)
[2020-06-21] MEDS: THIAMINE HCL 100 MG TABLET (FP) PO SCH (21:50)
[2020-06-21] MEDS: MELATONIN 5 MG TABLETS PO SCH (21:50)
[2020-06-22] MEDS: hydrOXYzine PAMOATE 25 MG CAPSULE (FP) PO SCH ×5 (06:35→21:04)
[2020-06-22] MEDS: METHOCARBAMOL 500 MG TABLET PO SCH ×3 (06:35→21:04)
[2020-06-22] MEDS: PRENATAL VITAMINS W/ FOLIC ACID TABLET (FP) PO SCH (09:49)
[2020-06-22] MEDS: NICOTINE 7 MG/24 HOURS TOPICAL PATCH TD SCH (09:50)
[2020-06-22] MEDS: NICOTINE POLACRILEX 2 MG GUM BUC PRN ×2 (09:51→21:04)
[2020-06-22] MEDS: ACETAMINOPHEN 325 MG TABLET (FP) PO PRN (14:38)
[2020-06-22] MEDS ORDERED: MASKS NR ONE (16:10)
[2020-06-22] MEDS: MELATONIN 5 MG TABLETS PO SCH (21:04)
[2020-06-22] MEDS: THIAMINE HCL 100 MG TABLET (FP) PO SCH (21:04)
[2020-06-23] MEDS: hydrOXYzine PAMOATE 25 MG CAPSULE (FP) PO SCH ×5 (06:15→21:33)
[2020-06-23] MEDS: METHOCARBAMOL 500 MG TABLET PO SCH ×3 (06:15→21:33)
[2020-06-23] MEDS: PRENATAL VITAMINS W/ FOLIC ACID TABLET (FP) PO SCH (09:57)
[2020-06-23] MEDS: NICOTINE 7 MG/24 HOURS TOPICAL PATCH TD SCH (09:57)
[2020-06-23] MEDS: ACETAMINOPHEN 325 MG TABLET (FP) PO PRN (09:58)
[2020-06-23] MEDS: MELATONIN 5 MG TABLETS PO SCH (21:33)
[2020-06-23] MEDS: THIAMINE HCL 100 MG TABLET (FP) PO SCH (21:33)
[2020-06-24] MEDS: hydrOXYzine PAMOATE 25 MG CAPSULE (FP) PO SCH ×5 (06:13→21:01)
[2020-06-24] MEDS: METHOCARBAMOL 500 MG TABLET PO SCH ×3 (06:13→21:01)
[2020-06-24] MEDS: PRENATAL VITAMINS W/ FOLIC ACID TABLET (FP) PO SCH (10:08)
[2020-06-24] MEDS: ACETAMINOPHEN 325 MG TABLET (FP) PO PRN (10:09)
[2020-06-24] MEDS: NICOTINE 7 MG/24 HOURS TOPICAL PATCH TD SCH (10:12)
[2020-06-24] MEDS ORDERED: BENZOCAINE 20 % GEL TUBE MM PRN (11:14)
[2020-06-24] MEDS: CHLORHEXIDINE GLUCONATE 118 ML MOUTHWASH MM SCH ×2 (14:35→21:02)
[2020-06-24] MEDS: MELATONIN 5 MG TABLETS PO SCH (21:01)
[2020-06-24] MEDS: THIAMINE HCL 100 MG TABLET (FP) PO SCH (21:01)
[2020-06-25] MEDS: METHOCARBAMOL 500 MG TABLET PO SCH ×3 (06:08→21:48)
[2020-06-25] MEDS: hydrOXYzine PAMOATE 25 MG CAPSULE (FP) PO SCH ×5 (06:08→21:48)
[2020-06-25] MEDS: PRENATAL VITAMINS W/ FOLIC ACID TABLET (FP) PO SCH (09:55)
[2020-06-25] MEDS: CHLORHEXIDINE GLUCONATE 118 ML MOUTHWASH MM SCH ×2 (09:55→21:49)
[2020-06-25] MEDS: NICOTINE POLACRILEX 2 MG GUM BUC PRN (09:56)
[2020-06-25] MEDS: NICOTINE 7 MG/24 HOURS TOPICAL PATCH TD SCH (09:57)
[2020-06-25] MEDS ORDERED: PT OWN MED DRAWER 7, Y5N ONE (19:08)
[2020-06-25] MEDS: MELATONIN 5 MG TABLETS PO SCH (21:48)
[2020-06-25] MEDS: THIAMINE HCL 100 MG TABLET (FP) PO SCH (21:48)
[2020-06-26] MEDS: METHOCARBAMOL 500 MG TABLET PO SCH ×3 (06:12→21:06)
[2020-06-26] MEDS: hydrOXYzine PAMOATE 25 MG CAPSULE (FP) PO SCH ×5 (06:12→21:07)
[2020-06-26] MEDS: CHLORHEXIDINE GLUCONATE 118 ML MOUTHWASH MM SCH ×2 (09:56→21:07)
[2020-06-26] MEDS: PRENATAL VITAMINS W/ FOLIC ACID TABLET (FP) PO SCH (09:56)
[2020-06-26] MEDS: NICOTINE 7 MG/24 HOURS TOPICAL PATCH TD SCH (09:56)
[2020-06-26] MEDS: MELATONIN 5 MG TABLETS PO SCH (21:06)
[2020-06-26] MEDS: THIAMINE HCL 100 MG TABLET (FP) PO SCH (21:06)
[2020-06-27] MEDS: METHOCARBAMOL 500 MG TABLET PO SCH ×3 (06:08→21:26)
[2020-06-27] MEDS: hydrOXYzine PAMOATE 25 MG CAPSULE (FP) PO SCH ×5 (06:08→21:27)
[2020-06-27] MEDS: PRENATAL VITAMINS W/ FOLIC ACID TABLET (FP) PO SCH (10:03)
[2020-06-27] MEDS: NICOTINE POLACRILEX 2 MG GUM BUC PRN (10:03)
[2020-06-27] MEDS: NICOTINE 7 MG/24 HOURS TOPICAL PATCH TD SCH (10:03)
[2020-06-27] MEDS: CHLORHEXIDINE GLUCONATE 118 ML MOUTHWASH MM SCH ×2 (10:04→21:28)
[2020-06-27] MEDS: THIAMINE HCL 100 MG TABLET (FP) PO SCH (21:27)
[2020-06-27] MEDS: MELATONIN 5 MG TABLETS PO SCH (21:27)
[2020-06-28] MEDS: hydrOXYzine PAMOATE 25 MG CAPSULE (FP) PO SCH ×5 (06:28→21:05)
[2020-06-28] MEDS: METHOCARBAMOL 500 MG TABLET PO SCH ×3 (06:28→21:04)
[2020-06-28] MEDS ORDERED: PT OWN MED DRAWER 7, Y5N ONE ×2 (08:22→21:05)
[2020-06-28] MEDS: CHLORHEXIDINE GLUCONATE 118 ML MOUTHWASH MM SCH ×2 (09:39→21:06)
[2020-06-28] MEDS: PRENATAL VITAMINS W/ FOLIC ACID TABLET (FP) PO SCH (09:40)
[2020-06-28] MEDS: NICOTINE 7 MG/24 HOURS TOPICAL PATCH TD SCH (09:40)
[2020-06-28] MEDS: NICOTINE POLACRILEX 2 MG GUM BUC PRN (09:41)
[2020-06-28] MEDS: ACETAMINOPHEN 325 MG TABLET (FP) PO PRN (09:41)
[2020-06-28] MEDS: THIAMINE HCL 100 MG TABLET (FP) PO SCH (21:04)
[2020-06-28] MEDS: MELATONIN 5 MG TABLETS PO SCH (21:05)
[2020-06-29] MEDS: hydrOXYzine PAMOATE 25 MG CAPSULE (FP) PO SCH ×2 (06:08→10:26)
[2020-06-29] MEDS: METHOCARBAMOL 500 MG TABLET PO SCH (06:08)
[2020-06-29 06:44] VITALS: BP 117/68; PULSE 66; TEMP 97.9
[2020-06-29] MEDS: PRENATAL VITAMINS W/ FOLIC ACID TABLET (FP) PO SCH (10:26)
[2020-06-29] MEDS: CHLORHEXIDINE GLUCONATE 118 ML MOUTHWASH MM SCH (10:27)
[2020-06-29] MEDS: NICOTINE 7 MG/24 HOURS TOPICAL PATCH TD SCH (10:27)
== END 2020-06-29 10:35 | disposition home or self-care (01) | DRG 772 ==
LOC: YASAS 09:15 → Y3W 14:54
PROVIDERS: ADMIT Allergy & Immunology; ATTEND Allergy & Immunology
PROC: HZ42ZZZ Group Counseling for Substance Abuse Treatment, Cognitive-Behavioral (ICD-10-PCS; principal; 2020-06-18)
DX: F10.20 Alcohol dependence, uncomplicated (principal); F14.20 Cocaine dependence, uncomplicated; F12.20 Cannabis dependence, uncomplicated; F17.210 Nicotine dependence, cigarettes, uncomplicated; L29.8 Other pruritus; Z56.0 Unemployment, unspecified; Z59.0 Homelessness
CPT/HCPCS: 36415; 80053; 81003; 85027; 86780; C9803; G0008; Q2036; U0003

== ENCOUNTER 2020-07-11 14:28 | Inpatient (IN) | payer OTHER ==
[2020-07-11 16:18] VITALS: BMI 27.1
[2020-07-11] MEDS: PANTOPRAZOLE 20 MG TABLET PO SCH (20:00)
[2020-07-11] MEDS ORDERED: DICYCLOMINE HCL 10 MG CAPSULE PO PRN (20:24)
[2020-07-11] MEDS ORDERED: guaiFENesin 200 MG/10 ML 10 ML UNIT-DOSE CUPS PO PRN (20:24)
[2020-07-11] MEDS ORDERED: MAGNESIUM CITRATE 300 ML BOTTLE PO PRN (20:24)
[2020-07-11] MEDS ORDERED: ACETAMINOPHEN 325 MG TABLET (FP) PO PRN ×2 (20:24)
[2020-07-11] MEDS ORDERED: BISMUTH SUBSALICYLATE 524 MG/30 ML UD PO PRN (20:24)
[2020-07-11] MEDS ORDERED: P-EPHED 60MG/TRIPROLIDI 2.5MG TABLET PO PRN (20:24)
[2020-07-11] MEDS ORDERED: ONDANSETRON *ODT* 4 MG TABLET SL PRN (20:24)
[2020-07-11] MEDS ORDERED: MENTHOL/PHENOL 1 EACH UD MM PRN (20:24)
[2020-07-11] MEDS ORDERED: chlordiazePOXIDE HCL 25 MG CAPSULE PO PRN (20:24)
[2020-07-11] MEDS ORDERED: MAGNESIUM HYDROX 2400MG/30ML ORAL SUSPENSION 30 ML CUP PO PRN (20:24)
[2020-07-11] MEDS ORDERED: MAG HYDROX/AL HYDROX/SIMETH 30 ML UNIT-DOSE CUP PO PRN (20:24)
[2020-07-11] MEDS ORDERED: IBUPROFEN 400 MG TABLET (FP) PO PRN (20:24)
[2020-07-11] MEDS ORDERED: NICOTINE POLACRILEX 2 MG GUM BUC PRN (20:24)
[2020-07-11] MEDS ORDERED: MELATONIN 5 MG TABLETS PO SCH (22:00)
[2020-07-11] MEDS: hydrOXYzine PAMOATE 25 MG CAPSULE (FP) PO SCH (22:27)
[2020-07-11] MEDS: BACITRACIN 0.9 GM PACKET TP SCH (22:27)
[2020-07-11] MEDS: chlordiazePOXIDE HCL 25 MG CAPSULE PO SCH (22:27)
[2020-07-11] MEDS: THIAMINE HCL 100 MG TABLET (FP) PO SCH (22:27)
[2020-07-12] MEDS: chlordiazePOXIDE HCL 25 MG CAPSULE PO SCH ×4 (05:01→22:27)
[2020-07-12] MEDS: hydrOXYzine PAMOATE 25 MG CAPSULE (FP) PO SCH ×5 (05:02→22:26)
[2020-07-12 09:55] LABS: POTASSIUM 3.7 mmol/L (3.5-5.1)
[2020-07-12 10:04] LABS: HEMATOCRIT 44.1 % (35.4-49); HEMOGLOBIN 14.9 GM/dL (11.7-16.9); MCH 32.5 pg (25.7-33.7); MCHC 33.8 g/dl (32.0-35.9); MEAN CELL VOLUME 96.1 fl (80-96); MEAN PLT VOLUME 8.9 fl (7.5-11.1); PLATELET COUNT 172 K/MM3 (134-434); RBC 4.59 M/mm3 (4.00-5.60); RDW 14.2 % (11.9-15.9); WHITE BLOOD COUNT 7.1 K/mm3 (4.0-10.0)
[2020-07-12 10:08] LABS: CALCIUM 8.2 mg/dL (8.5-10.1)
[2020-07-12 10:10] LABS: ALBUMIN 3.6 g/dl (3.4-5.0); BLOOD UREA NITROGEN 18.7 mg/dL (7-18)
[2020-07-12 10:13] LABS: CREATININE 0.8 mg/dL (0.55-1.3)
[2020-07-12 10:14] LABS: BILIRUBIN,TOTAL 0.7 mg/dL (0.2-1); TOT PROT 6.5 g/dl (6.4-8.2)
[2020-07-12] MEDS: PANTOPRAZOLE 20 MG TABLET PO SCH (10:42)
[2020-07-12] MEDS: NICOTINE 21 MG/24 HOURS TOPICAL PATCH TD SCH (10:42)
[2020-07-12] MEDS: PRENATAL VITAMINS W/ FOLIC ACID TABLET (FP) PO SCH (10:42)
[2020-07-12] MEDS: BACITRACIN 0.9 GM PACKET TP SCH ×2 (10:42→22:26)
[2020-07-12 10:57] LABS: HIV INTERPRETATION NEGATIVE (NEGATIVE)
[2020-07-12] MEDS: METHOCARBAMOL 500 MG TABLET PO PRN (14:34)
[2020-07-12] MEDS: THIAMINE HCL 100 MG TABLET (FP) PO SCH (22:26)
[2020-07-12] MEDS: SUVOREXANT 10 MG TABLET PO PRN (22:28)
[2020-07-13] MEDS: chlordiazePOXIDE HCL 25 MG CAPSULE PO SCH ×4 (05:03→22:26)
[2020-07-13] MEDS: hydrOXYzine PAMOATE 25 MG CAPSULE (FP) PO SCH ×5 (05:03→22:27)
[2020-07-13] MEDS: NICOTINE 21 MG/24 HOURS TOPICAL PATCH TD SCH (10:11)
[2020-07-13] MEDS: PRENATAL VITAMINS W/ FOLIC ACID TABLET (FP) PO SCH (10:11)
[2020-07-13] MEDS: PANTOPRAZOLE 20 MG TABLET PO SCH (10:11)
[2020-07-13] MEDS: BACITRACIN 0.9 GM PACKET TP SCH ×2 (10:11→22:26)
[2020-07-13] MEDS: METHOCARBAMOL 500 MG TABLET PO PRN ×3 (10:12→22:30)
[2020-07-13 16:44] LABS: URINE APPEARANCE CLEAR; URINE BILIRUBIN NEGATIVE (NEGATIVE); URINE COLOR YELLOW; URINE GLUCOSE (UA) NEGATIVE (NEGATIVE); URINE KETONE NEGATIVE (NEGATIVE); URINE LEUK ESTERASE NEGATIVE (NEGATIVE); URINE NITRITE NEGATIVE (NEGATIVE); URINE PROTEIN NEGATIVE (NEGATIVE); URINE UROBILINOGEN 0.2 mg/dL (0.2-1.0)
[2020-07-13] MEDS: THIAMINE HCL 100 MG TABLET (FP) PO SCH (22:27)
[2020-07-13] MEDS: SUVOREXANT 10 MG TABLET PO PRN (22:30)
[2020-07-14] MEDS ORDERED: chlordiazePOXIDE HCL 10 MG CAPSULE PO PRN
[2020-07-14] MEDS: hydrOXYzine PAMOATE 25 MG CAPSULE (FP) PO SCH ×2 (05:30→10:01)
[2020-07-14] MEDS: chlordiazePOXIDE HCL 10 MG CAPSULE PO SCH ×2 (05:31→10:02)
[2020-07-14 09:17] VITALS: BP 110/65; PULSE 81; TEMP 98.2
[2020-07-14] MEDS: BACITRACIN 0.9 GM PACKET TP SCH (10:01)
[2020-07-14] MEDS: NICOTINE 21 MG/24 HOURS TOPICAL PATCH TD SCH (10:01)
[2020-07-14] MEDS: PANTOPRAZOLE 20 MG TABLET PO SCH (10:02)
[2020-07-14] MEDS: PRENATAL VITAMINS W/ FOLIC ACID TABLET (FP) PO SCH (10:03)
[2020-07-15] MEDS ORDERED: chlordiazePOXIDE HCL 10 MG CAPSULE PO SCH (05:00)
[2020-07-16] MEDS ORDERED: chlordiazePOXIDE HCL 10 MG CAPSULE PO ONE (05:00)
== END 2020-07-14 11:23 | disposition home or self-care (01) | DRG 774 ==
LOC: YASAS 14:28 → Y6N 17:41
PROVIDERS: ADMIT Allergy & Immunology; ATTEND Allergy & Immunology
PROC: HZ2ZZZZ Detoxification Services for Substance Abuse Treatment (ICD-10-PCS; principal; 2020-07-11)
DX: F10.230 Alcohol dependence with withdrawal, uncomplicated (principal); F14.20 Cocaine dependence, uncomplicated; F15.20 Other stimulant dependence, uncomplicated; F12.20 Cannabis dependence, uncomplicated; F17.210 Nicotine dependence, cigarettes, uncomplicated; F19.282 Other psychoactive substance dependence with psychoactive substance-induced sleep disorder; F19.280 Other psychoactive substance dependence with psychoactive substance-induced anxiety disorder; F19.24 Other psychoactive substance dependence with psychoactive substance-induced mood disorder; F42.4 Excoriation (skin-picking) disorder; K21.9 Gastro-esophageal reflux disease without esophagitis; Z62.810 Personal history of physical and sexual abuse in childhood; Z91.410 Personal history of adult physical and sexual abuse; Z86.11 Personal history of tuberculosis; Z59.0 Homelessness
CPT/HCPCS: 36415; 71046-TC-FY; 80053; 81003; 85027; 86780; 87389; C9803; Q0162; U0003

== ENCOUNTER 2020-07-20 12:22 | Inpatient (IN) | payer OTHER ==
[2020-07-20 12:42] VITALS: BMI 28.7
[2020-07-20] MEDS ORDERED: MENTHOL/PHENOL 1 EACH UD MM PRN (18:35)
[2020-07-20] MEDS ORDERED: BISMUTH SUBSALICYLATE 524 MG/30 ML UD PO PRN (18:35)
[2020-07-20] MEDS ORDERED: MAGNESIUM HYDROX 2400MG/30ML ORAL SUSPENSION 30 ML CUP PO PRN (18:35)
[2020-07-20] MEDS ORDERED: MELATONIN 5 MG TABLETS PO PRN (18:35)
[2020-07-20] MEDS ORDERED: ONDANSETRON *ODT* 4 MG TABLET SL PRN (18:35)
[2020-07-20] MEDS ORDERED: MAGNESIUM CITRATE 300 ML BOTTLE PO PRN (18:35)
[2020-07-20] MEDS ORDERED: chlordiazePOXIDE HCL 25 MG CAPSULE PO PRN (18:35)
[2020-07-20] MEDS ORDERED: MAG HYDROX/AL HYDROX/SIMETH 30 ML UNIT-DOSE CUP PO PRN (18:35)
[2020-07-20] MEDS ORDERED: ACETAMINOPHEN 325 MG TABLET (FP) PO PRN ×2 (18:35)
[2020-07-20] MEDS: THIAMINE HCL 100 MG TABLET (FP) PO SCH (22:33)
[2020-07-20] MEDS: IBUPROFEN 400 MG TABLET (FP) PO PRN (22:34)
[2020-07-20] MEDS: TOLNAFTATE 1% CREAM 15 GM TUBE TP SCH (22:35)
[2020-07-20] MEDS: chlordiazePOXIDE HCL 25 MG CAPSULE PO SCH (22:35)
[2020-07-21] MEDS: chlordiazePOXIDE HCL 25 MG CAPSULE PO SCH ×4 (06:01→22:08)
[2020-07-21] MEDS: NICOTINE POLACRILEX 2 MG GUM BUC PRN (10:03)
[2020-07-21] MEDS: PRENATAL VITAMINS W/ FOLIC ACID TABLET (FP) PO SCH (10:04)
[2020-07-21] MEDS: NICOTINE 21 MG/24 HOURS TOPICAL PATCH TD SCH (10:05)
[2020-07-21] MEDS: METHOCARBAMOL 500 MG TABLET PO PRN ×2 (10:05→17:44)
[2020-07-21] MEDS: IBUPROFEN 400 MG TABLET (FP) PO PRN ×2 (10:05→17:44)
[2020-07-21] MEDS: TOLNAFTATE 1% CREAM 15 GM TUBE TP SCH ×2 (10:07→22:36)
[2020-07-21 10:37] LABS: POTASSIUM 4.4 mmol/L (3.5-5.1)
[2020-07-21 10:41] LABS: BLOOD UREA NITROGEN 18.7 mg/dL (7-18); CALCIUM 9.1 mg/dL (8.5-10.1)
[2020-07-21 10:42] LABS: HEMATOCRIT 46.1 % (35.4-49); HEMOGLOBIN 15.5 GM/dL (11.7-16.9); MCH 32.4 pg (25.7-33.7); MCHC 33.5 g/dl (32.0-35.9); MEAN CELL VOLUME 96.6 fl (80-96); MEAN PLT VOLUME 9.2 fl (7.5-11.1); PLATELET COUNT 225 K/MM3 (134-434); RBC 4.77 M/mm3 (4.00-5.60); WHITE BLOOD COUNT 6.2 K/mm3 (4.0-10.0)
[2020-07-21 10:45] LABS: CREATININE 0.8 mg/dL (0.55-1.3)
[2020-07-21 10:46] LABS: BILIRUBIN,TOTAL 0.5 mg/dL (0.2-1); TOT PROT 7.2 g/dl (6.4-8.2)
[2020-07-21 11:42] LABS: HIV INTERPRETATION NEGATIVE (NEGATIVE)
[2020-07-21] MEDS ORDERED: PENICILLIN G BENZATHINE 2,400,000 UNIT/4 ML PFS IM ONE (17:00)
[2020-07-21] MEDS ORDERED: SUVOREXANT 10 MG TABLET PO PRN (22:00)
[2020-07-21] MEDS: THIAMINE HCL 100 MG TABLET (FP) PO SCH (22:07)
[2020-07-22] MEDS: chlordiazePOXIDE HCL 25 MG CAPSULE PO SCH ×2 (06:20→10:14)
[2020-07-22] MEDS: IBUPROFEN 400 MG TABLET (FP) PO PRN (06:22)
[2020-07-22] MEDS: METHOCARBAMOL 500 MG TABLET PO PRN (06:22)
[2020-07-22] MEDS: NICOTINE 21 MG/24 HOURS TOPICAL PATCH TD SCH (10:13)
[2020-07-22] MEDS: PRENATAL VITAMINS W/ FOLIC ACID TABLET (FP) PO SCH (10:13)
[2020-07-22] MEDS: TOLNAFTATE 1% CREAM 15 GM TUBE TP SCH (10:13)
[2020-07-22] MEDS: NICOTINE POLACRILEX 2 MG GUM BUC PRN (10:14)
[2020-07-22] MEDS ORDERED: NICOTINE POLACRILEX 4 MG GUM BUC PRN (11:53)
[2020-07-22 13:31] VITALS: BP 112/69; PULSE 74; TEMP 96.9
[2020-07-22] MEDS ORDERED: HYDROCORTISONE 1% TOPICAL CREAM 30 GM TUBE TP PRN (13:31)
[2020-07-23] MEDS ORDERED: chlordiazePOXIDE HCL 10 MG CAPSULE PO PRN
[2020-07-23] MEDS ORDERED: chlordiazePOXIDE HCL 10 MG CAPSULE PO SCH (05:00)
[2020-07-24] MEDS ORDERED: chlordiazePOXIDE HCL 10 MG CAPSULE PO SCH (05:00)
[2020-07-25] MEDS ORDERED: chlordiazePOXIDE HCL 10 MG CAPSULE PO ONE (05:00)
== END 2020-07-22 03:23 | disposition left against medical advice (07) | DRG 770 ==
LOC: YASAS 12:22 → Y3N 20:04
PROVIDERS: ADMIT Allergy & Immunology; ATTEND Allergy & Immunology
PROC: HZ2ZZZZ Detoxification Services for Substance Abuse Treatment (ICD-10-PCS; principal; 2020-07-20)
DX: F10.230 Alcohol dependence with withdrawal, uncomplicated (principal); F15.20 Other stimulant dependence, uncomplicated; F14.20 Cocaine dependence, uncomplicated; F13.230 Sedative, hypnotic or anxiolytic dependence with withdrawal, uncomplicated; F12.20 Cannabis dependence, uncomplicated; F17.210 Nicotine dependence, cigarettes, uncomplicated; F19.282 Other psychoactive substance dependence with psychoactive substance-induced sleep disorder; F41.9 Anxiety disorder, unspecified; A53.0 Latent syphilis, unspecified as early or late; B35.3 Tinea pedis; J45.909 Unspecified asthma, uncomplicated; K21.9 Gastro-esophageal reflux disease without esophagitis; M54.5 Low back pain; G89.29 Other chronic pain; R01.1 Cardiac murmur, unspecified; Z62.810 Personal history of physical and sexual abuse in childhood; Z91.410 Personal history of adult physical and sexual abuse
CPT/HCPCS: 36415; 80053; 85027; 86593; 86780; 87389; C9803; U0003

== ENCOUNTER 2021-03-29 08:12 | Inpatient (IN) | payer OTHER ==
[2021-03-29 10:18] VITALS: BMI 26.4
[2021-03-29] MEDS ORDERED: NICOTINE 10 MG CARTRIDGE (INHALER) IH PRN (10:20)
[2021-03-29] MEDS ORDERED: BISMUTH SUBSALICYLATE 262 MG/15 ML BTL PO PRN (10:20)
[2021-03-29] MEDS ORDERED: ACETAMINOPHEN 325 MG TABLET (FP) PO PRN (10:20)
[2021-03-29] MEDS ORDERED: MAGNESIUM HYDROX 2400MG/30ML ORAL SUSPENSION 30 ML CUP PO PRN (10:20)
[2021-03-29] MEDS ORDERED: MAGNESIUM CITRATE 300 ML BOTTLE PO PRN (10:20)
[2021-03-29] MEDS ORDERED: ONDANSETRON *ODT* 4 MG TABLET SL PRN (10:20)
[2021-03-29] MEDS ORDERED: MENTHOL/PHENOL 1 EACH UD MM PRN (10:20)
[2021-03-29] MEDS: NICOTINE 14 MG/24 HOURS TOPICAL PATCH TD SCH (12:05)
[2021-03-29] MEDS: PRENATAL VITAMINS W/ FOLIC ACID TABLET (FP) PO SCH (12:05)
[2021-03-29] MEDS: hydrOXYzine PAMOATE 25 MG CAPSULE (FP) PO SCH ×3 (14:56→22:27)
[2021-03-29] MEDS: IBUPROFEN 400 MG TABLET (FP) PO PRN (16:53)
[2021-03-29 17:09] LABS: ALBUMIN 3.3 g/dl (3.4-5.0); BLOOD UREA NITROGEN 12.4 mg/dL (7-18)
[2021-03-29 17:10] LABS: CALCIUM 8.6 mg/dL (8.5-10.1)
[2021-03-29 17:12] LABS: CREATININE 0.8 mg/dL (0.55-1.3)
[2021-03-29 17:13] LABS: HEMATOCRIT 39.7 % (35.4-49); HEMOGLOBIN 13.6 GM/dL (11.7-16.9); MCH 31.6 pg (25.7-33.7); MCHC 34.3 g/dl (32.0-35.9); MEAN CELL VOLUME 92.1 fl (80-96); MEAN PLT VOLUME 7.2 fl (7.5-11.1); PLATELET COUNT 276 10^3/uL (134-434); RBC 4.31 M/mm3 (4.00-5.60); RDW 13.5 % (11.9-15.9); WHITE BLOOD COUNT 7.6 K/mm3 (4.0-10.0)
[2021-03-29 17:14] LABS: BILIRUBIN,TOTAL 0.2 mg/dL (0.2-1); TOT PROT 7.2 g/dl (6.4-8.2)
[2021-03-29] MEDS ORDERED: ALBUTEROL SO4 HFA INHALER IH PRN (17:26)
[2021-03-29] MEDS: METHOCARBAMOL 500 MG TABLET PO PRN (17:38)
[2021-03-29] MEDS: MELATONIN 5 MG TABLETS PO SCH (22:27)
[2021-03-29] MEDS: THIAMINE HCL 100 MG TABLET (FP) PO SCH (22:27)
[2021-03-30] MEDS: hydrOXYzine PAMOATE 25 MG CAPSULE (FP) PO SCH ×5 (05:46→22:21)
[2021-03-30] MEDS: METHOCARBAMOL 500 MG TABLET PO PRN (05:46)
[2021-03-30] MEDS ORDERED: LORazepam 1 MG TABLET PO PRN (09:21)
[2021-03-30] MEDS: LORazepam 2 MG TABLET PO SCH ×3 (10:23→22:21)
[2021-03-30] MEDS: NICOTINE 14 MG/24 HOURS TOPICAL PATCH TD SCH (10:23)
[2021-03-30] MEDS: PRENATAL VITAMINS W/ FOLIC ACID TABLET (FP) PO SCH (10:23)
[2021-03-30] MEDS: IBUPROFEN 400 MG TABLET (FP) PO PRN ×2 (10:26→18:06)
[2021-03-30] MEDS: METHYL SALICYLATE/MENTHOL OINT 30 GM TUBE TP SCH ×2 (11:30→22:20)
[2021-03-30] MEDS ORDERED: PNEUMOC 13-VAL CONJ-DIP CRM/PF 0.5 ML DISP.SYRIN IM ONE (11:59)
[2021-03-30] MEDS ORDERED: FLU VACC QS2021-22(6MOS UP)/PF 60 MCG/0.5 ML SYRINGE IM ONE (11:59)
[2021-03-30] MEDS ORDERED: PNEUMOCOCCAL 23 VACCINE 0.5 ML VIAL IM ONE (12:00)
[2021-03-30] MEDS: THIAMINE HCL 100 MG TABLET (FP) PO SCH (22:21)
[2021-03-30] MEDS: MELATONIN 5 MG TABLETS PO SCH (22:21)
[2021-03-31] MEDS: LORazepam 2 MG TABLET PO SCH ×4 (05:15→23:01)
[2021-03-31] MEDS: hydrOXYzine PAMOATE 25 MG CAPSULE (FP) PO SCH ×5 (05:16→23:00)
[2021-03-31] MEDS: ACETAMINOPHEN 325 MG TABLET (FP) PO PRN ×2 (05:25→17:38)
[2021-03-31] MEDS ORDERED: PENICILLIN G BENZATHINE 2,400,000 UNIT/4 ML PFS IM ONE (10:00)
[2021-03-31] MEDS: METHYL SALICYLATE/MENTHOL OINT 30 GM TUBE TP SCH ×2 (10:24→23:00)
[2021-03-31] MEDS: PRENATAL VITAMINS W/ FOLIC ACID TABLET (FP) PO SCH (10:25)
[2021-03-31] MEDS: NICOTINE 14 MG/24 HOURS TOPICAL PATCH TD SCH (10:25)
[2021-03-31] MEDS: IBUPROFEN 400 MG TABLET (FP) PO PRN (10:26)
[2021-03-31] MEDS: METHOCARBAMOL 500 MG TABLET PO PRN (10:27)
[2021-03-31] MEDS: MAG HYDROX/AL HYDROX/SIMETH 30 ML UNIT-DOSE CUP PO PRN (17:38)
[2021-03-31] MEDS: MELATONIN 5 MG TABLETS PO SCH (23:00)
[2021-03-31] MEDS: THIAMINE HCL 100 MG TABLET (FP) PO SCH (23:00)
[2021-04-01] MEDS: hydrOXYzine PAMOATE 25 MG CAPSULE (FP) PO SCH ×2 (05:55→14:49)
[2021-04-01] MEDS: LORazepam 1 MG TABLET PO SCH ×4 (05:55→22:22)
[2021-04-01] MEDS ORDERED: hydrOXYzine PAMOATE 25 MG CAPSULE (FP) PO PRN (10:02)
[2021-04-01] MEDS: NICOTINE 14 MG/24 HOURS TOPICAL PATCH TD SCH (10:58)
[2021-04-01] MEDS: PRENATAL VITAMINS W/ FOLIC ACID TABLET (FP) PO SCH (10:58)
[2021-04-01] MEDS: METHYL SALICYLATE/MENTHOL OINT 30 GM TUBE TP SCH ×2 (10:58→22:22)
[2021-04-01] MEDS: IBUPROFEN 400 MG TABLET (FP) PO PRN (13:26)
[2021-04-01] MEDS: METHOCARBAMOL 500 MG TABLET PO PRN (13:26)
[2021-04-01] MEDS: MAG HYDROX/AL HYDROX/SIMETH 30 ML UNIT-DOSE CUP PO PRN (17:55)
[2021-04-01] MEDS: THIAMINE HCL 100 MG TABLET (FP) PO SCH (22:22)
[2021-04-01] MEDS: MELATONIN 5 MG TABLETS PO SCH (22:22)
[2021-04-02] MEDS ORDERED: LORazepam 0.5 MG TABLET PO PRN
[2021-04-02] MEDS: LORazepam 0.5 MG TABLET PO SCH ×2 (05:23→10:18)
[2021-04-02] MEDS: NICOTINE 14 MG/24 HOURS TOPICAL PATCH TD SCH (10:17)
[2021-04-02] MEDS: METHYL SALICYLATE/MENTHOL OINT 30 GM TUBE TP SCH (10:17)
[2021-04-02] MEDS: PRENATAL VITAMINS W/ FOLIC ACID TABLET (FP) PO SCH (10:17)
[2021-04-02 12:57] VITALS: BP 126/67; PULSE 67; TEMP 97.1
[2021-04-03] MEDS ORDERED: LORazepam 0.5 MG TABLET PO ONE (05:00)
== END 2021-04-02 13:59 | disposition other institution (70) | DRG 774 ==
LOC: YASAS 08:12 → UNDOADMIN 10:44 → Y3N 10:44
PROVIDERS: ADMIT Allergy & Immunology; ATTEND Allergy & Immunology
PROC: HZ2ZZZZ Detoxification Services for Substance Abuse Treatment (ICD-10-PCS; principal; 2021-03-29)
DX: F10.230 Alcohol dependence with withdrawal, uncomplicated (principal); F14.20 Cocaine dependence, uncomplicated; F12.20 Cannabis dependence, uncomplicated; F17.210 Nicotine dependence, cigarettes, uncomplicated; F19.282 Other psychoactive substance dependence with psychoactive substance-induced sleep disorder; A53.0 Latent syphilis, unspecified as early or late; R74.01 Elevation of levels of liver transaminase levels; Z62.810 Personal history of physical and sexual abuse in childhood; Z91.410 Personal history of adult physical and sexual abuse; Z86.19 Personal history of other infectious and parasitic diseases; Z86.11 Personal history of tuberculosis; Z59.00 Homelessness unspecified
CPT/HCPCS: 36415; 80053; 85027; 86593; 86780; C9803; U0003; U0005

== ENCOUNTER 2021-04-02 14:15 | Inpatient (IN) | payer OTHER ==
[2021-04-02] MEDS ORDERED: PNEUMOC 13-VAL CONJ-DIP CRM/PF 0.5 ML DISP.SYRIN IM ONE (15:03)
[2021-04-02] MEDS ORDERED: MAG HYDROX/AL HYDROX/SIMETH 30 ML UNIT-DOSE CUP PO PRN (18:19)
[2021-04-02] MEDS ORDERED: IBUPROFEN 400 MG TABLET (FP) PO PRN (18:19)
[2021-04-02] MEDS ORDERED: LOPERAMIDE HCL 2 MG CAPSULE PO PRN (18:19)
[2021-04-02] MEDS ORDERED: MAGNESIUM HYDROX 2400MG/30ML ORAL SUSPENSION 30 ML CUP PO PRN (18:19)
[2021-04-02] MEDS ORDERED: guaiFENesin 200 MG/10 ML 10 ML UNIT-DOSE CUPS PO PRN (18:19)
[2021-04-02] MEDS ORDERED: P-EPHED 60MG/TRIPROLIDI 2.5MG TABLET PO PRN (18:19)
[2021-04-02] MEDS ORDERED: MENTHOL/PHENOL 1 EACH UD MM PRN (18:19)
[2021-04-02] MEDS ORDERED: MAGNESIUM CITRATE 300 ML BOTTLE PO PRN (18:19)
[2021-04-02] MEDS: THIAMINE HCL 100 MG TABLET (FP) PO SCH (21:39)
[2021-04-02] MEDS: MELATONIN 5 MG TABLETS PO SCH (21:42)
[2021-04-03] MEDS: PRENATAL VITAMINS W/ FOLIC ACID TABLET (FP) PO SCH (09:37)
[2021-04-03] MEDS: ACETAMINOPHEN 325 MG TABLET (FP) PO PRN (09:38)
[2021-04-03] MEDS: NICOTINE 14 MG/24 HOURS TOPICAL PATCH TD SCH (09:39)
[2021-04-03] MEDS ORDERED: FLU VACC QS2021-22(6MOS UP)/PF 60 MCG/0.5 ML SYRINGE IM ONE (12:00)
[2021-04-03] MEDS ORDERED: PNEUMOCOCCAL 23 VACCINE 0.5 ML VIAL IM ONE (12:00)
[2021-04-03 13:31] LABS: HIV INTERPRETATION NEGATIVE (NEGATIVE)
[2021-04-03] MEDS: ALBUTEROL SO4 HFA INHALER IH PRN (17:38)
[2021-04-03] MEDS: THIAMINE HCL 100 MG TABLET (FP) PO SCH (21:03)
[2021-04-03] MEDS: MELATONIN 5 MG TABLETS PO SCH (21:03)
[2021-04-03] MEDS: hydrOXYzine PAMOATE 25 MG CAPSULE (FP) PO PRN (21:03)
[2021-04-04] MEDS: NICOTINE 14 MG/24 HOURS TOPICAL PATCH TD SCH (09:51)
[2021-04-04] MEDS: PRENATAL VITAMINS W/ FOLIC ACID TABLET (FP) PO SCH (09:51)
[2021-04-04] MEDS: hydrOXYzine PAMOATE 25 MG CAPSULE (FP) PO PRN (21:24)
[2021-04-04] MEDS: MELATONIN 5 MG TABLETS PO SCH (21:24)
[2021-04-04] MEDS: THIAMINE HCL 100 MG TABLET (FP) PO SCH (21:24)
[2021-04-05] MEDS: NICOTINE 14 MG/24 HOURS TOPICAL PATCH TD SCH (09:58)
[2021-04-05] MEDS: PRENATAL VITAMINS W/ FOLIC ACID TABLET (FP) PO SCH (09:58)
[2021-04-05] MEDS: NICOTINE 10 MG CARTRIDGE (INHALER) IH PRN (09:59)
[2021-04-05] MEDS: hydrOXYzine PAMOATE 25 MG CAPSULE (FP) PO PRN ×2 (10:00→21:09)
[2021-04-05] MEDS: ACETAMINOPHEN 325 MG TABLET (FP) PO PRN (10:01)
[2021-04-05] MEDS ORDERED: JANSSEN COVID-19 VAC,AD26/PF 0.5 ML IM ONE (11:00)
[2021-04-05] MEDS: THIAMINE HCL 100 MG TABLET (FP) PO SCH (21:08)
[2021-04-05] MEDS: SUVOREXANT 10 MG TABLET PO PRN (21:09)
[2021-04-06] MEDS: PRENATAL VITAMINS W/ FOLIC ACID TABLET (FP) PO SCH (09:59)
[2021-04-06] MEDS: NICOTINE 14 MG/24 HOURS TOPICAL PATCH TD SCH (09:59)
[2021-04-06] MEDS: hydrOXYzine PAMOATE 25 MG CAPSULE (FP) PO PRN (09:59)
[2021-04-06] MEDS: ACETAMINOPHEN 325 MG TABLET (FP) PO PRN (09:59)
[2021-04-06] MEDS: NICOTINE 10 MG CARTRIDGE (INHALER) IH PRN (10:00)
[2021-04-06] MEDS: SUVOREXANT 10 MG TABLET PO PRN (21:29)
[2021-04-06] MEDS: THIAMINE HCL 100 MG TABLET (FP) PO SCH (21:30)
[2021-04-07] MEDS: PRENATAL VITAMINS W/ FOLIC ACID TABLET (FP) PO SCH (10:00)
[2021-04-07] MEDS: NICOTINE 14 MG/24 HOURS TOPICAL PATCH TD SCH (10:01)
[2021-04-07] MEDS: NICOTINE 10 MG CARTRIDGE (INHALER) IH PRN (10:02)
[2021-04-07] MEDS: ACETAMINOPHEN 325 MG TABLET (FP) PO PRN (10:03)
[2021-04-07] MEDS ORDERED: COLLOIDAL OATMEAL 1 BAR EACH TP PRN (11:05)
[2021-04-07] MEDS ORDERED: BENZOCAINE 20 % GEL TUBE MM PRN (11:06)
[2021-04-07] MEDS: CHLORHEXIDINE GLUCONATE 118 ML MOUTHWASH MM SCH ×2 (12:22→21:09)
[2021-04-07] MEDS: THIAMINE HCL 100 MG TABLET (FP) PO SCH (21:07)
[2021-04-07] MEDS: hydrOXYzine PAMOATE 25 MG CAPSULE (FP) PO PRN (21:08)
[2021-04-07] MEDS: SUVOREXANT 10 MG TABLET PO PRN (21:08)
[2021-04-08] MEDS: ACETAMINOPHEN 325 MG TABLET (FP) PO PRN (11:00)
[2021-04-08] MEDS: hydrOXYzine PAMOATE 25 MG CAPSULE (FP) PO PRN (11:00)
[2021-04-08] MEDS: PRENATAL VITAMINS W/ FOLIC ACID TABLET (FP) PO SCH (11:00)
[2021-04-08] MEDS: CHLORHEXIDINE GLUCONATE 118 ML MOUTHWASH MM SCH ×2 (11:01→21:49)
[2021-04-08] MEDS: NICOTINE 14 MG/24 HOURS TOPICAL PATCH TD SCH (11:02)
[2021-04-08] MEDS: SUVOREXANT 10 MG TABLET PO PRN (21:48)
[2021-04-08] MEDS: THIAMINE HCL 100 MG TABLET (FP) PO SCH (21:48)
[2021-04-09] MEDS: NICOTINE 10 MG CARTRIDGE (INHALER) IH PRN ×2 (05:54→10:11)
[2021-04-09] MEDS: PRENATAL VITAMINS W/ FOLIC ACID TABLET (FP) PO SCH (10:09)
[2021-04-09] MEDS: ALBUTEROL SO4 HFA INHALER IH PRN (10:10)
[2021-04-09] MEDS: NICOTINE 14 MG/24 HOURS TOPICAL PATCH TD SCH (10:10)
[2021-04-09] MEDS: hydrOXYzine PAMOATE 25 MG CAPSULE (FP) PO PRN ×2 (10:10→21:03)
[2021-04-09] MEDS: CHLORHEXIDINE GLUCONATE 118 ML MOUTHWASH MM SCH ×2 (11:06→21:02)
[2021-04-09] MEDS: THIAMINE HCL 100 MG TABLET (FP) PO SCH (21:02)
[2021-04-10 06:57] VITALS: BP 139/67; PULSE 64; TEMP 98.2
[2021-04-10] MEDS: PRENATAL VITAMINS W/ FOLIC ACID TABLET (FP) PO SCH (09:09)
[2021-04-10] MEDS: CHLORHEXIDINE GLUCONATE 118 ML MOUTHWASH MM SCH (09:10)
[2021-04-10] MEDS: NICOTINE 14 MG/24 HOURS TOPICAL PATCH TD SCH (09:10)
== END 2021-04-10 09:12 | disposition home or self-care (01) | DRG 772 ==
LOC: YASAS 14:15 → Y3W 14:17
PROVIDERS: ADMIT Allergy & Immunology; ATTEND Allergy & Immunology
PROC: HZ42ZZZ Group Counseling for Substance Abuse Treatment, Cognitive-Behavioral (ICD-10-PCS; principal; 2021-04-10)
DX: F10.20 Alcohol dependence, uncomplicated (principal); F14.20 Cocaine dependence, uncomplicated; F12.20 Cannabis dependence, uncomplicated; J45.909 Unspecified asthma, uncomplicated; A53.0 Latent syphilis, unspecified as early or late; Z86.11 Personal history of tuberculosis; Z86.19 Personal history of other infectious and parasitic diseases; Z59.01 Sheltered homelessness
CPT/HCPCS: 0031A; 36415; 87389; 90686; 90732; 91303; G0008; G0009

== ENCOUNTER 2021-04-19 08:22 | Inpatient (IN) | payer OTHER ==
[2021-04-19] MEDS ORDERED: IBUPROFEN 400 MG TABLET (FP) PO PRN (09:01)
[2021-04-19] MEDS ORDERED: ONDANSETRON *ODT* 4 MG TABLET SL PRN (09:01)
[2021-04-19] MEDS ORDERED: METHOCARBAMOL 500 MG TABLET PO PRN (09:01)
[2021-04-19] MEDS ORDERED: diazePAM 5 MG TABLET PO PRN (09:01)
[2021-04-19] MEDS ORDERED: MAG HYDROX/AL HYDROX/SIMETH 30 ML UNIT-DOSE CUP PO PRN (09:01)
[2021-04-19] MEDS ORDERED: MAGNESIUM HYDROX 2400MG/30ML ORAL SUSPENSION 30 ML CUP PO PRN (09:01)
[2021-04-19] MEDS ORDERED: MAGNESIUM CITRATE 300 ML BOTTLE PO PRN (09:01)
[2021-04-19] MEDS ORDERED: BISMUTH SUBSALICYLATE 524 MG/30 ML PO PRN (09:01)
[2021-04-19] MEDS ORDERED: MENTHOL/PHENOL 1 EACH UD MM PRN (09:01)
[2021-04-19] MEDS ORDERED: ACETAMINOPHEN 325 MG TABLET (FP) PO PRN ×2 (09:01)
[2021-04-19] MEDS ORDERED: ALBUTEROL SO4 HFA INHALER IH PRN (09:03)
[2021-04-19 09:20] VITALS: BMI 27.4
[2021-04-19] MEDS: hydrOXYzine PAMOATE 25 MG CAPSULE (FP) PO SCH ×4 (11:13→22:42)
[2021-04-19] MEDS: PRENATAL VITAMINS W/ FOLIC ACID TABLET (FP) PO SCH (11:13)
[2021-04-19] MEDS: diazePAM 5 MG TABLET PO SCH ×3 (11:13→22:42)
[2021-04-19] MEDS: NICOTINE 7 MG/24 HOURS TOPICAL PATCH TD SCH (11:15)
[2021-04-19] MEDS: NICOTINE 10 MG CARTRIDGE (INHALER) IH PRN ×2 (11:15→20:23)
[2021-04-19 15:09] LABS: HEMATOCRIT 39.8 % (35.4-49); HEMOGLOBIN 13.3 GM/dL (11.7-16.9); MCH 31.6 pg (25.7-33.7); MCHC 33.5 g/dl (32.0-35.9); MEAN CELL VOLUME 94.3 fl (80-96); MEAN PLT VOLUME 8.4 fl (7.5-11.1); PLATELET COUNT 201 10^3/uL (134-434); RBC 4.22 M/mm3 (4.00-5.60); RDW 14.1 % (11.9-15.9); WHITE BLOOD COUNT 6.3 K/mm3 (4.0-10.0)
[2021-04-19 16:05] LABS: CALCIUM 8.7 mg/dL (8.5-10.1)
[2021-04-19 16:06] LABS: ALBUMIN 3.8 g/dl (3.4-5.0); BLOOD UREA NITROGEN 22.4 mg/dL (7-18)
[2021-04-19 16:09] LABS: CREATININE 0.9 mg/dL (0.55-1.3)
[2021-04-19 16:10] LABS: BILIRUBIN,TOTAL 0.5 mg/dL (0.2-1); TOT PROT 7.3 g/dl (6.4-8.2)
[2021-04-19 16:44] LABS: HIV INTERPRETATION NEGATIVE (NEGATIVE)
[2021-04-19] MEDS ORDERED: MELATONIN 5 MG TABLETS PO SCH (22:00)
[2021-04-19] MEDS ORDERED: THIAMINE HCL 100 MG TABLET (FP) PO SCH (22:00)
[2021-04-20] MEDS: hydrOXYzine PAMOATE 25 MG CAPSULE (FP) PO SCH ×2 (05:14→10:12)
[2021-04-20] MEDS: diazePAM 5 MG TABLET PO SCH ×2 (05:14→10:12)
[2021-04-20 09:11] VITALS: BP 96/54; PULSE 68; TEMP 97.3
[2021-04-20] MEDS: NICOTINE 7 MG/24 HOURS TOPICAL PATCH TD SCH (10:11)
[2021-04-20] MEDS: PRENATAL VITAMINS W/ FOLIC ACID TABLET (FP) PO SCH (10:12)
[2021-04-20] MEDS ORDERED: PENICILLIN G BENZATHINE 2,400,000 UNIT/4 ML PFS IM ONE (11:40)
[2021-04-21] MEDS ORDERED: diazePAM 5 MG TABLET PO SCH (06:00)
[2021-04-22] MEDS ORDERED: diazePAM 5 MG TABLET PO SCH (06:00)
[2021-04-23] MEDS ORDERED: diazePAM 5 MG TABLET PO ONE (06:00)
== END 2021-04-20 12:05 | disposition left against medical advice (07) | DRG 770 ==
LOC: YASAS 08:22 → Y3N 09:41
PROVIDERS: ADMIT Allergy & Immunology; ATTEND Allergy & Immunology
PROC: HZ2ZZZZ Detoxification Services for Substance Abuse Treatment (ICD-10-PCS; principal; 2021-04-19)
DX: F10.230 Alcohol dependence with withdrawal, uncomplicated (principal); F14.20 Cocaine dependence, uncomplicated; F12.20 Cannabis dependence, uncomplicated; F17.210 Nicotine dependence, cigarettes, uncomplicated; J45.909 Unspecified asthma, uncomplicated; K21.9 Gastro-esophageal reflux disease without esophagitis; R76.8 Other specified abnormal immunological findings in serum; M54.59 Other low back pain; G89.29 Other chronic pain; Z86.11 Personal history of tuberculosis; Z59.00 Homelessness unspecified
CPT/HCPCS: 36415; 80053; 85027; 86593; 86780; 87389; C9803; U0003; U0005

== ENCOUNTER 2021-04-21 08:15 | Inpatient (IN) | payer OTHER ==
[2021-04-21 09:22] VITALS: BMI 27.4
[2021-04-21] MEDS ORDERED: ACETAMINOPHEN 325 MG TABLET (FP) PO PRN (09:40)
[2021-04-21] MEDS ORDERED: MAGNESIUM CITRATE 300 ML BOTTLE PO PRN (09:40)
[2021-04-21] MEDS ORDERED: BISMUTH SUBSALICYLATE 262 MG/15 ML BTL PO PRN (09:40)
[2021-04-21] MEDS ORDERED: MENTHOL/PHENOL 1 EACH UD MM PRN (09:40)
[2021-04-21] MEDS ORDERED: IBUPROFEN 400 MG TABLET (FP) PO PRN (09:40)
[2021-04-21] MEDS ORDERED: MAG HYDROX/AL HYDROX/SIMETH 30 ML UNIT-DOSE CUP PO PRN (09:40)
[2021-04-21] MEDS ORDERED: MAGNESIUM HYDROX 2400MG/30ML ORAL SUSPENSION 30 ML CUP PO PRN (09:40)
[2021-04-21] MEDS ORDERED: ONDANSETRON *ODT* 4 MG TABLET SL PRN (09:40)
[2021-04-21] MEDS ORDERED: PENICILLIN G BENZATHINE 1,200,000 UNIT/2 ML PFS IM ONE (09:42)
[2021-04-21] MEDS: hydrOXYzine PAMOATE 25 MG CAPSULE (FP) PO SCH ×4 (11:13→22:27)
[2021-04-21] MEDS: PRENATAL VITAMINS W/ FOLIC ACID TABLET (FP) PO SCH (11:13)
[2021-04-21] MEDS: ACETAMINOPHEN 325 MG TABLET (FP) PO PRN (11:13)
[2021-04-21] MEDS: NICOTINE 10 MG CARTRIDGE (INHALER) IH PRN (11:14)
[2021-04-21] MEDS: NICOTINE 14 MG/24 HOURS TOPICAL PATCH TD SCH (11:16)
[2021-04-21 16:45] LABS: HEMATOCRIT 38.9 % (35.4-49); HEMOGLOBIN 13.3 GM/dL (11.7-16.9); MCH 31.9 pg (25.7-33.7); MCHC 34.2 g/dl (32.0-35.9); MEAN PLT VOLUME 8.3 fl (7.5-11.1); PLATELET COUNT 191 10^3/uL (134-434); RBC 4.19 M/mm3 (4.00-5.60); RDW 13.7 % (11.9-15.9); WHITE BLOOD COUNT 6.4 K/mm3 (4.0-10.0)
[2021-04-21 16:48] LABS: ALBUMIN 3.6 g/dl (3.4-5.0); CALCIUM 8.8 mg/dL (8.5-10.1)
[2021-04-21 16:49] LABS: BLOOD UREA NITROGEN 17.3 mg/dL (7-18)
[2021-04-21 16:51] LABS: CREATININE 0.9 mg/dL (0.55-1.3)
[2021-04-21 16:53] LABS: BILIRUBIN,TOTAL 0.2 mg/dL (0.2-1)
[2021-04-21] MEDS ORDERED: MELATONIN 5 MG TABLETS PO SCH (22:00)
[2021-04-21] MEDS: THIAMINE HCL 100 MG TABLET (FP) PO SCH (22:27)
[2021-04-22] MEDS: hydrOXYzine PAMOATE 25 MG CAPSULE (FP) PO SCH ×5 (05:48→22:40)
[2021-04-22] MEDS: METHOCARBAMOL 500 MG TABLET PO PRN ×2 (05:50→12:01)
[2021-04-22] MEDS: PRENATAL VITAMINS W/ FOLIC ACID TABLET (FP) PO SCH (10:07)
[2021-04-22] MEDS: NICOTINE 14 MG/24 HOURS TOPICAL PATCH TD SCH (10:07)
[2021-04-22] MEDS ORDERED: ALBUTEROL SO4 HFA INHALER IH PRN (11:16)
[2021-04-22] MEDS ORDERED: LIDOCAINE VISCOUS 2% ORAL/TOP 15 ML UNIT-DOSE CUP MM PRN (11:17)
[2021-04-22] MEDS ORDERED: diazePAM 5 MG TABLET PO PRN (11:18)
[2021-04-22] MEDS: diazePAM 5 MG TABLET PO SCH ×3 (12:01→22:27)
[2021-04-22] MEDS: SUVOREXANT 10 MG TABLET PO PRN (22:26)
[2021-04-22] MEDS: THIAMINE HCL 100 MG TABLET (FP) PO SCH (22:26)
[2021-04-23] MEDS: diazePAM 5 MG TABLET PO SCH ×4 (06:13→22:55)
[2021-04-23] MEDS: METHOCARBAMOL 500 MG TABLET PO PRN (06:14)
[2021-04-23] MEDS: hydrOXYzine PAMOATE 25 MG CAPSULE (FP) PO SCH ×5 (06:14→22:47)
[2021-04-23] MEDS: PRENATAL VITAMINS W/ FOLIC ACID TABLET (FP) PO SCH (10:54)
[2021-04-23] MEDS: ACETAMINOPHEN 325 MG TABLET (FP) PO PRN (10:54)
[2021-04-23] MEDS: NICOTINE 10 MG CARTRIDGE (INHALER) IH PRN (10:56)
[2021-04-23] MEDS: NICOTINE 14 MG/24 HOURS TOPICAL PATCH TD SCH (11:12)
[2021-04-23] MEDS: CYCLOBENZAPRINE HCL 10 MG TABLET (FP) PO PRN (17:49)
[2021-04-23] MEDS: THIAMINE HCL 100 MG TABLET (FP) PO SCH (22:46)
[2021-04-23] MEDS: SUVOREXANT 10 MG TABLET PO PRN (22:53)
[2021-04-24] MEDS: hydrOXYzine PAMOATE 25 MG CAPSULE (FP) PO SCH ×3 (05:49→14:21)
[2021-04-24] MEDS: diazePAM 5 MG TABLET PO SCH ×2 (05:50→14:20)
[2021-04-24] MEDS: CYCLOBENZAPRINE HCL 10 MG TABLET (FP) PO PRN (05:53)
[2021-04-24] MEDS: ACETAMINOPHEN 325 MG TABLET (FP) PO PRN (05:54)
[2021-04-24] MEDS: PRENATAL VITAMINS W/ FOLIC ACID TABLET (FP) PO SCH (10:37)
[2021-04-24] MEDS: NICOTINE 14 MG/24 HOURS TOPICAL PATCH TD SCH (10:38)
[2021-04-24 17:50] VITALS: BP 121/64; PULSE 94; TEMP 98.6
[2021-04-25] MEDS ORDERED: diazePAM 5 MG TABLET PO SCH (06:00)
[2021-04-26] MEDS ORDERED: diazePAM 5 MG TABLET PO ONE (06:00)
== END 2021-04-24 18:16 | disposition left against medical advice (07) | DRG 770 ==
LOC: YASAS 08:15 → UNDOADMIN 09:33 → Y6N 09:33
PROVIDERS: ADMIT Allergy & Immunology; ATTEND Allergy & Immunology
PROC: HZ2ZZZZ Detoxification Services for Substance Abuse Treatment (ICD-10-PCS; principal; 2021-04-21)
DX: F10.230 Alcohol dependence with withdrawal, uncomplicated (principal); F14.20 Cocaine dependence, uncomplicated; F12.20 Cannabis dependence, uncomplicated; F15.10 Other stimulant abuse, uncomplicated; F17.210 Nicotine dependence, cigarettes, uncomplicated; F19.24 Other psychoactive substance dependence with psychoactive substance-induced mood disorder; F19.282 Other psychoactive substance dependence with psychoactive substance-induced sleep disorder; R76.8 Other specified abnormal immunological findings in serum; K21.9 Gastro-esophageal reflux disease without esophagitis; J45.909 Unspecified asthma, uncomplicated; Z86.19 Personal history of other infectious and parasitic diseases; Z86.11 Personal history of tuberculosis; Z59.02 Unsheltered homelessness
CPT/HCPCS: 36415; 80053; 85027; 86593; 86780; C9803; U0003; U0005

== ENCOUNTER 2021-04-29 11:35 | Inpatient (IN) | payer OTHER ==
[2021-04-29] MEDS ORDERED: MAG HYDROX/AL HYDROX/SIMETH 30 ML UNIT-DOSE CUP PO PRN (12:07)
[2021-04-29] MEDS ORDERED: guaiFENesin 200 MG/10 ML 10 ML UNIT-DOSE CUPS PO PRN (12:07)
[2021-04-29] MEDS ORDERED: MAGNESIUM HYDROX 2400MG/30ML ORAL SUSPENSION 30 ML CUP PO PRN (12:07)
[2021-04-29] MEDS ORDERED: LOPERAMIDE HCL 2 MG CAPSULE PO PRN (12:07)
[2021-04-29] MEDS ORDERED: P-EPHED 60MG/TRIPROLIDI 2.5MG TABLET PO PRN (12:07)
[2021-04-29] MEDS ORDERED: MAGNESIUM CITRATE 300 ML BOTTLE PO PRN (12:07)
[2021-04-29 12:47] VITALS: BMI 27.1
[2021-04-29] MEDS ORDERED: hydrOXYzine PAMOATE 25 MG CAPSULE (FP) PO SCH (14:00)
[2021-04-29] MEDS ORDERED: ALBUTEROL SO4 HFA INHALER IH PRN (15:04)
[2021-04-29] MEDS: IBUPROFEN 400 MG TABLET (FP) PO PRN (15:17)
[2021-04-29] MEDS: NICOTINE 7 MG/24 HOURS TOPICAL PATCH TD SCH (15:17)
[2021-04-29] MEDS: PRENATAL VITAMINS W/ FOLIC ACID TABLET (FP) PO SCH (15:17)
[2021-04-29 15:53] LABS: HEMATOCRIT 42.8 % (35.4-49); HEMOGLOBIN 14.3 GM/dL (11.7-16.9); MCH 30.9 pg (25.7-33.7); MCHC 33.4 g/dl (32.0-35.9); MEAN CELL VOLUME 92.5 fl (80-96); MEAN PLT VOLUME 7.5 fl (7.5-11.1); PLATELET COUNT 205 10^3/uL (134-434); RBC 4.62 M/mm3 (4.00-5.60); RDW 13.5 % (11.9-15.9); WHITE BLOOD COUNT 8.4 K/mm3 (4.0-10.0)
[2021-04-29 16:08] LABS: ALBUMIN 4.2 g/dl (3.4-5.0); BLOOD UREA NITROGEN 24.9 mg/dL (7-18); CALCIUM 8.9 mg/dL (8.5-10.1)
[2021-04-29 16:11] LABS: CREATININE 1.1 mg/dL (0.55-1.3)
[2021-04-29 16:13] LABS: BILIRUBIN,TOTAL 0.9 mg/dL (0.2-1); TOT PROT 8.2 g/dl (6.4-8.2)
[2021-04-29 17:14] LABS: SYPHILIS W/ RPR CONF REACTIVE (NONREACTIVE)
[2021-04-29] MEDS: THIAMINE HCL 100 MG TABLET (FP) PO SCH (21:26)
[2021-04-29] MEDS: MELATONIN 5 MG TABLETS PO SCH (21:26)
[2021-04-30] MEDS: PRENATAL VITAMINS W/ FOLIC ACID TABLET (FP) PO SCH (09:55)
[2021-04-30] MEDS: NICOTINE 7 MG/24 HOURS TOPICAL PATCH TD SCH (09:55)
[2021-04-30] MEDS: hydrOXYzine PAMOATE 25 MG CAPSULE (FP) PO PRN (09:56)
[2021-04-30] MEDS: ACETAMINOPHEN 325 MG TABLET (FP) PO PRN (14:25)
[2021-04-30] MEDS: METHOCARBAMOL 500 MG TABLET PO SCH ×2 (14:25→21:19)
[2021-04-30] MEDS ORDERED: PENICILLIN G BENZATHINE 2,400,000 UNIT/4 ML PFS IM ONE (15:08)
[2021-04-30 15:53] LABS: PH,URINE 7.5 (5.0-8.0); URINE APPEARANCE TURBID; URINE BILIRUBIN NEGATIVE (NEGATIVE); URINE COLOR YELLOW; URINE GLUCOSE (UA) NEGATIVE (NEGATIVE); URINE KETONE NEGATIVE (NEGATIVE); URINE LEUK ESTERASE NEGATIVE (NEGATIVE); URINE NITRITE NEGATIVE (NEGATIVE); URINE PROTEIN NEGATIVE (NEGATIVE)
[2021-04-30] MEDS: MELATONIN 5 MG TABLETS PO SCH (21:19)
[2021-04-30] MEDS: THIAMINE HCL 100 MG TABLET (FP) PO SCH (21:19)
[2021-05-01] MEDS: METHOCARBAMOL 500 MG TABLET PO SCH ×3 (07:46→21:33)
[2021-05-01] MEDS: PRENATAL VITAMINS W/ FOLIC ACID TABLET (FP) PO SCH (09:35)
[2021-05-01] MEDS: NICOTINE 7 MG/24 HOURS TOPICAL PATCH TD SCH (09:35)
[2021-05-01] MEDS: hydrOXYzine PAMOATE 25 MG CAPSULE (FP) PO PRN (14:03)
[2021-05-01] MEDS: MELATONIN 5 MG TABLETS PO SCH (21:33)
[2021-05-01] MEDS: THIAMINE HCL 100 MG TABLET (FP) PO SCH (21:33)
[2021-05-02] MEDS: METHOCARBAMOL 500 MG TABLET PO SCH ×3 (06:26→21:14)
[2021-05-02] MEDS ORDERED: COLLOIDAL OATMEAL 1 BAR EACH TP PRN (09:23)
[2021-05-02] MEDS ORDERED: BENZOCAINE 20 % GEL TUBE MM PRN (09:23)
[2021-05-02] MEDS: hydrOXYzine PAMOATE 25 MG CAPSULE (FP) PO PRN ×2 (09:46→21:14)
[2021-05-02] MEDS: PRENATAL VITAMINS W/ FOLIC ACID TABLET (FP) PO SCH (09:51)
[2021-05-02] MEDS: NICOTINE 7 MG/24 HOURS TOPICAL PATCH TD SCH (09:51)
[2021-05-02] MEDS: THIAMINE HCL 100 MG TABLET (FP) PO SCH (21:14)
[2021-05-02] MEDS: MELATONIN 5 MG TABLETS PO SCH (21:14)
[2021-05-03] MEDS: METHOCARBAMOL 500 MG TABLET PO SCH ×3 (06:42→21:51)
[2021-05-03] MEDS: ACETAMINOPHEN 325 MG TABLET (FP) PO PRN (06:57)
[2021-05-03] MEDS: NICOTINE 7 MG/24 HOURS TOPICAL PATCH TD SCH (09:53)
[2021-05-03] MEDS: PRENATAL VITAMINS W/ FOLIC ACID TABLET (FP) PO SCH (09:53)
[2021-05-03] MEDS: hydrOXYzine PAMOATE 25 MG CAPSULE (FP) PO PRN ×2 (09:54→21:51)
[2021-05-03] MEDS: CHLORHEXIDINE GLUCONATE 118 ML MOUTHWASH MM SCH ×2 (14:12→21:52)
[2021-05-03] MEDS ORDERED: PT OWN MED DRAWER 7, Y5N ONE ×2 (20:18→22:13)
[2021-05-03] MEDS: THIAMINE HCL 100 MG TABLET (FP) PO SCH (21:51)
[2021-05-03] MEDS: MELATONIN 5 MG TABLETS PO SCH (21:52)
[2021-05-04] MEDS: hydrOXYzine PAMOATE 25 MG CAPSULE (FP) PO PRN ×2 (06:37→16:57)
[2021-05-04] MEDS: METHOCARBAMOL 500 MG TABLET PO SCH ×3 (06:37→21:29)
[2021-05-04] MEDS: CHLORHEXIDINE GLUCONATE 118 ML MOUTHWASH MM SCH ×2 (10:02→21:29)
[2021-05-04] MEDS: NICOTINE 7 MG/24 HOURS TOPICAL PATCH TD SCH (10:03)
[2021-05-04] MEDS: PRENATAL VITAMINS W/ FOLIC ACID TABLET (FP) PO SCH (10:03)
[2021-05-04] MEDS: NICOTINE 10 MG CARTRIDGE (INHALER) IH PRN (10:03)
[2021-05-04] MEDS: ACETAMINOPHEN 325 MG TABLET (FP) PO PRN (16:57)
[2021-05-04] MEDS ORDERED: PT OWN MED DRAWER 7, Y5N ONE (19:22)
[2021-05-04] MEDS: THIAMINE HCL 100 MG TABLET (FP) PO SCH (21:29)
[2021-05-04] MEDS: MELATONIN 5 MG TABLETS PO SCH (21:29)
[2021-05-05] MEDS: METHOCARBAMOL 500 MG TABLET PO SCH ×3 (06:35→21:18)
[2021-05-05] MEDS: ACETAMINOPHEN 325 MG TABLET (FP) PO PRN (06:35)
[2021-05-05] MEDS: hydrOXYzine PAMOATE 25 MG CAPSULE (FP) PO PRN ×2 (09:19→21:19)
[2021-05-05] MEDS: PRENATAL VITAMINS W/ FOLIC ACID TABLET (FP) PO SCH (09:19)
[2021-05-05] MEDS: CHLORHEXIDINE GLUCONATE 118 ML MOUTHWASH MM SCH ×2 (09:19→21:17)
[2021-05-05] MEDS: NICOTINE 7 MG/24 HOURS TOPICAL PATCH TD SCH (09:20)
[2021-05-05] MEDS ORDERED: PT OWN MED DRAWER 7, Y5N ONE (20:08)
[2021-05-05] MEDS: MELATONIN 5 MG TABLETS PO SCH (21:18)
[2021-05-05] MEDS: THIAMINE HCL 100 MG TABLET (FP) PO SCH (21:18)
[2021-05-06] MEDS: METHOCARBAMOL 500 MG TABLET PO SCH ×3 (07:40→21:21)
[2021-05-06] MEDS: CHLORHEXIDINE GLUCONATE 118 ML MOUTHWASH MM SCH ×2 (10:06→21:21)
[2021-05-06] MEDS: NICOTINE 7 MG/24 HOURS TOPICAL PATCH TD SCH (10:06)
[2021-05-06] MEDS: PRENATAL VITAMINS W/ FOLIC ACID TABLET (FP) PO SCH (10:06)
[2021-05-06] MEDS: hydrOXYzine PAMOATE 25 MG CAPSULE (FP) PO PRN ×2 (10:07→21:21)
[2021-05-06] MEDS ORDERED: PT OWN MED DRAWER 7, Y5N ONE (20:44)
[2021-05-06] MEDS: THIAMINE HCL 100 MG TABLET (FP) PO SCH (21:20)
[2021-05-06] MEDS: MELATONIN 5 MG TABLETS PO SCH (21:21)
[2021-05-07] MEDS: METHOCARBAMOL 500 MG TABLET PO SCH ×3 (06:59→21:32)
[2021-05-07] MEDS: hydrOXYzine PAMOATE 25 MG CAPSULE (FP) PO PRN ×3 (07:00→21:32)
[2021-05-07] MEDS: NICOTINE 7 MG/24 HOURS TOPICAL PATCH TD SCH (09:52)
[2021-05-07] MEDS: PRENATAL VITAMINS W/ FOLIC ACID TABLET (FP) PO SCH (09:52)
[2021-05-07] MEDS: CHLORHEXIDINE GLUCONATE 118 ML MOUTHWASH MM SCH ×2 (09:52→21:33)
[2021-05-07] MEDS ORDERED: PENICILLIN G BENZATHINE 2,400,000 UNIT/4 ML PFS IM ONE (10:00)
[2021-05-07] MEDS: NICOTINE 10 MG CARTRIDGE (INHALER) IH PRN (14:41)
[2021-05-07] MEDS: ACETAMINOPHEN 325 MG TABLET (FP) PO PRN (18:46)
[2021-05-07] MEDS ORDERED: PT OWN MED DRAWER 7, Y5N ONE (20:13)
[2021-05-07] MEDS: THIAMINE HCL 100 MG TABLET (FP) PO SCH (21:32)
[2021-05-07] MEDS: MELATONIN 5 MG TABLETS PO SCH (21:33)
[2021-05-08] MEDS: METHOCARBAMOL 500 MG TABLET PO SCH ×3 (06:46→21:38)
[2021-05-08] MEDS: CHLORHEXIDINE GLUCONATE 118 ML MOUTHWASH MM SCH ×2 (10:05→21:38)
[2021-05-08] MEDS: PRENATAL VITAMINS W/ FOLIC ACID TABLET (FP) PO SCH (10:05)
[2021-05-08] MEDS: NICOTINE 7 MG/24 HOURS TOPICAL PATCH TD SCH (10:05)
[2021-05-08] MEDS ORDERED: PT OWN MED DRAWER 7, Y5N ONE ×3 (10:14→22:07)
[2021-05-08] MEDS: MELATONIN 5 MG TABLETS PO SCH (21:38)
[2021-05-08] MEDS: THIAMINE HCL 100 MG TABLET (FP) PO SCH (21:38)
[2021-05-08] MEDS: hydrOXYzine PAMOATE 25 MG CAPSULE (FP) PO PRN (21:40)
[2021-05-08] MEDS: NICOTINE 10 MG CARTRIDGE (INHALER) IH PRN (21:51)
[2021-05-09] MEDS: METHOCARBAMOL 500 MG TABLET PO SCH ×3 (06:15→21:21)
[2021-05-09] MEDS: IBUPROFEN 400 MG TABLET (FP) PO PRN (09:29)
[2021-05-09] MEDS: NICOTINE 7 MG/24 HOURS TOPICAL PATCH TD SCH (09:29)
[2021-05-09] MEDS: PRENATAL VITAMINS W/ FOLIC ACID TABLET (FP) PO SCH (09:29)
[2021-05-09] MEDS: CHLORHEXIDINE GLUCONATE 118 ML MOUTHWASH MM SCH ×2 (09:29→21:22)
[2021-05-09] MEDS: THIAMINE HCL 100 MG TABLET (FP) PO SCH (21:21)
[2021-05-09] MEDS: MELATONIN 5 MG TABLETS PO SCH (21:22)
[2021-05-09] MEDS: hydrOXYzine PAMOATE 25 MG CAPSULE (FP) PO PRN (21:23)
[2021-05-10] MEDS: METHOCARBAMOL 500 MG TABLET PO SCH ×3 (06:53→21:18)
[2021-05-10] MEDS: NICOTINE 10 MG CARTRIDGE (INHALER) IH PRN ×2 (09:08→21:20)
[2021-05-10] MEDS: NICOTINE 7 MG/24 HOURS TOPICAL PATCH TD SCH (09:08)
[2021-05-10] MEDS: PRENATAL VITAMINS W/ FOLIC ACID TABLET (FP) PO SCH (09:08)
[2021-05-10] MEDS: CHLORHEXIDINE GLUCONATE 118 ML MOUTHWASH MM SCH ×2 (09:09→21:17)
[2021-05-10] MEDS: hydrOXYzine PAMOATE 25 MG CAPSULE (FP) PO PRN ×2 (15:54→21:20)
[2021-05-10] MEDS ORDERED: PT OWN MED DRAWER 7, Y5N ONE (20:49)
[2021-05-10] MEDS: MELATONIN 5 MG TABLETS PO SCH (21:18)
[2021-05-10] MEDS: THIAMINE HCL 100 MG TABLET (FP) PO SCH (21:18)
[2021-05-11] MEDS: METHOCARBAMOL 500 MG TABLET PO SCH ×3 (06:46→21:09)
[2021-05-11] MEDS: CHLORHEXIDINE GLUCONATE 118 ML MOUTHWASH MM SCH ×2 (09:53→21:12)
[2021-05-11] MEDS: NICOTINE 7 MG/24 HOURS TOPICAL PATCH TD SCH (09:54)
[2021-05-11] MEDS: PRENATAL VITAMINS W/ FOLIC ACID TABLET (FP) PO SCH (09:54)
[2021-05-11] MEDS: NICOTINE 10 MG CARTRIDGE (INHALER) IH PRN (17:46)
[2021-05-11] MEDS: MELATONIN 5 MG TABLETS PO SCH (21:09)
[2021-05-11] MEDS: THIAMINE HCL 100 MG TABLET (FP) PO SCH (21:09)
[2021-05-11] MEDS: hydrOXYzine PAMOATE 25 MG CAPSULE (FP) PO PRN (21:10)
[2021-05-12] MEDS: NICOTINE 10 MG CARTRIDGE (INHALER) IH PRN ×3 (06:56→21:53)
[2021-05-12] MEDS: METHOCARBAMOL 500 MG TABLET PO SCH ×3 (06:56→21:52)
[2021-05-12] MEDS: PRENATAL VITAMINS W/ FOLIC ACID TABLET (FP) PO SCH (10:05)
[2021-05-12] MEDS: NICOTINE 7 MG/24 HOURS TOPICAL PATCH TD SCH (10:05)
[2021-05-12] MEDS: hydrOXYzine PAMOATE 25 MG CAPSULE (FP) PO PRN ×2 (10:06→21:52)
[2021-05-12] MEDS: CHLORHEXIDINE GLUCONATE 118 ML MOUTHWASH MM SCH ×2 (10:07→21:53)
[2021-05-12] MEDS ORDERED: PT OWN MED DRAWER 7, Y5N ONE (20:11)
[2021-05-12] MEDS: MELATONIN 5 MG TABLETS PO SCH (21:52)
[2021-05-12] MEDS: THIAMINE HCL 100 MG TABLET (FP) PO SCH (21:52)
[2021-05-13] MEDS: METHOCARBAMOL 500 MG TABLET PO SCH ×3 (06:44→21:25)
[2021-05-13] MEDS: hydrOXYzine PAMOATE 25 MG CAPSULE (FP) PO PRN (06:44)
[2021-05-13] MEDS: NICOTINE 10 MG CARTRIDGE (INHALER) IH PRN ×2 (09:59→20:34)
[2021-05-13] MEDS: NICOTINE 7 MG/24 HOURS TOPICAL PATCH TD SCH (09:59)
[2021-05-13] MEDS: CHLORHEXIDINE GLUCONATE 118 ML MOUTHWASH MM SCH ×3 (09:59→23:25)
[2021-05-13] MEDS: PRENATAL VITAMINS W/ FOLIC ACID TABLET (FP) PO SCH (09:59)
[2021-05-13] MEDS ORDERED: PT OWN MED DRAWER 7, Y5N ONE (10:10)
[2021-05-13] MEDS: MELATONIN 5 MG TABLETS PO SCH (21:25)
[2021-05-13] MEDS: THIAMINE HCL 100 MG TABLET (FP) PO SCH (21:25)
[2021-05-13] MEDS: IBUPROFEN 400 MG TABLET (FP) PO PRN (21:27)
[2021-05-14] MEDS: METHOCARBAMOL 500 MG TABLET PO SCH ×3 (06:39→21:49)
[2021-05-14] MEDS: NICOTINE 10 MG CARTRIDGE (INHALER) IH PRN (10:11)
[2021-05-14] MEDS: NICOTINE 7 MG/24 HOURS TOPICAL PATCH TD SCH (10:12)
[2021-05-14] MEDS: PRENATAL VITAMINS W/ FOLIC ACID TABLET (FP) PO SCH (10:12)
[2021-05-14] MEDS: CHLORHEXIDINE GLUCONATE 118 ML MOUTHWASH MM SCH ×2 (10:12→21:49)
[2021-05-14] MEDS ORDERED: PT OWN MED DRAWER 7, Y5N ONE ×2 (19:49→22:09)
[2021-05-14] MEDS: MELATONIN 5 MG TABLETS PO SCH (21:49)
[2021-05-14] MEDS: hydrOXYzine PAMOATE 25 MG CAPSULE (FP) PO PRN (21:49)
[2021-05-14] MEDS: THIAMINE HCL 100 MG TABLET (FP) PO SCH (21:49)
[2021-05-15] MEDS: METHOCARBAMOL 500 MG TABLET PO SCH ×3 (06:35→21:39)
[2021-05-15] MEDS: NICOTINE 7 MG/24 HOURS TOPICAL PATCH TD SCH (09:35)
[2021-05-15] MEDS: PRENATAL VITAMINS W/ FOLIC ACID TABLET (FP) PO SCH (09:35)
[2021-05-15] MEDS: CHLORHEXIDINE GLUCONATE 118 ML MOUTHWASH MM SCH ×2 (09:35→21:40)
[2021-05-15] MEDS: hydrOXYzine PAMOATE 25 MG CAPSULE (FP) PO PRN (09:36)
[2021-05-15] MEDS: NICOTINE 10 MG CARTRIDGE (INHALER) IH PRN (16:48)
[2021-05-15] MEDS: MELATONIN 5 MG TABLETS PO SCH (21:39)
[2021-05-15] MEDS: THIAMINE HCL 100 MG TABLET (FP) PO SCH (21:39)
[2021-05-16] MEDS: METHOCARBAMOL 500 MG TABLET PO SCH ×3 (06:33→21:31)
[2021-05-16] MEDS: NICOTINE 10 MG CARTRIDGE (INHALER) IH PRN ×2 (06:39→19:01)
[2021-05-16] MEDS: CHLORHEXIDINE GLUCONATE 118 ML MOUTHWASH MM SCH ×2 (09:32→21:32)
[2021-05-16] MEDS: NICOTINE 7 MG/24 HOURS TOPICAL PATCH TD SCH (09:32)
[2021-05-16] MEDS: PRENATAL VITAMINS W/ FOLIC ACID TABLET (FP) PO SCH (09:32)
[2021-05-16] MEDS: hydrOXYzine PAMOATE 25 MG CAPSULE (FP) PO PRN ×2 (09:33→19:02)
[2021-05-16] MEDS ORDERED: PT OWN MED DRAWER 7, Y5N ONE (09:51)
[2021-05-16] MEDS: THIAMINE HCL 100 MG TABLET (FP) PO SCH (21:31)
[2021-05-16] MEDS: MELATONIN 5 MG TABLETS PO SCH (21:31)
[2021-05-17] MEDS: METHOCARBAMOL 500 MG TABLET PO SCH ×3 (06:25→21:45)
[2021-05-17] MEDS: NICOTINE 10 MG CARTRIDGE (INHALER) IH PRN ×2 (07:17→12:54)
[2021-05-17] MEDS: CHLORHEXIDINE GLUCONATE 118 ML MOUTHWASH MM SCH ×2 (10:14→21:45)
[2021-05-17] MEDS: NICOTINE 7 MG/24 HOURS TOPICAL PATCH TD SCH (10:14)
[2021-05-17] MEDS: PRENATAL VITAMINS W/ FOLIC ACID TABLET (FP) PO SCH (10:14)
[2021-05-17] MEDS: hydrOXYzine PAMOATE 25 MG CAPSULE (FP) PO PRN (10:14)
[2021-05-17] MEDS ORDERED: PT OWN MED DRAWER 7, Y5N ONE (19:56)
[2021-05-17] MEDS: MELATONIN 5 MG TABLETS PO SCH (21:45)
[2021-05-17] MEDS: THIAMINE HCL 100 MG TABLET (FP) PO SCH (21:45)
[2021-05-18] MEDS: METHOCARBAMOL 500 MG TABLET PO SCH ×3 (06:29→21:11)
[2021-05-18] MEDS ORDERED: PT OWN MED DRAWER 7, Y5N ONE (09:15)
[2021-05-18] MEDS: NICOTINE 7 MG/24 HOURS TOPICAL PATCH TD SCH (09:58)
[2021-05-18] MEDS: NICOTINE 10 MG CARTRIDGE (INHALER) IH PRN ×2 (09:58→15:52)
[2021-05-18] MEDS: PRENATAL VITAMINS W/ FOLIC ACID TABLET (FP) PO SCH (09:58)
[2021-05-18] MEDS: CHLORHEXIDINE GLUCONATE 118 ML MOUTHWASH MM SCH ×2 (09:58→21:11)
[2021-05-18] MEDS: hydrOXYzine PAMOATE 25 MG CAPSULE (FP) PO PRN (15:52)
[2021-05-18] MEDS: IBUPROFEN 400 MG TABLET (FP) PO PRN (15:52)
[2021-05-18] MEDS: MELATONIN 5 MG TABLETS PO SCH (21:11)
[2021-05-18] MEDS: THIAMINE HCL 100 MG TABLET (FP) PO SCH (21:11)
[2021-05-19] MEDS: METHOCARBAMOL 500 MG TABLET PO SCH (06:30)
[2021-05-19 06:42] VITALS: TEMP 97.1
[2021-05-19] MEDS ORDERED: PT OWN MED DRAWER 7, Y5N ONE ×3 (09:41→22:08)
[2021-05-19] MEDS ORDERED: METHOCARBAMOL 500 MG TABLET PO PRN (09:49)
[2021-05-19] MEDS: NICOTINE 10 MG CARTRIDGE (INHALER) IH PRN ×2 (10:27→19:52)
[2021-05-19] MEDS: PRENATAL VITAMINS W/ FOLIC ACID TABLET (FP) PO SCH (10:28)
[2021-05-19] MEDS: NICOTINE 7 MG/24 HOURS TOPICAL PATCH TD SCH (10:28)
[2021-05-19] MEDS: CHLORHEXIDINE GLUCONATE 118 ML MOUTHWASH MM SCH ×2 (10:28→21:47)
[2021-05-19] MEDS: hydrOXYzine PAMOATE 25 MG CAPSULE (FP) PO PRN (19:51)
[2021-05-19] MEDS: MELATONIN 5 MG TABLETS PO SCH (21:44)
[2021-05-19] MEDS: THIAMINE HCL 100 MG TABLET (FP) PO SCH (21:44)
[2021-05-20 06:43] VITALS: BP 104/74; PULSE 86
== END 2021-05-20 08:55 | disposition home or self-care (01) | DRG 772 ==
LOC: YASAS 11:35 → Y3E 13:06
PROVIDERS: ADMIT Allergy & Immunology; ATTEND Registered Nurse
PROC: HZ42ZZZ Group Counseling for Substance Abuse Treatment, Cognitive-Behavioral (ICD-10-PCS; principal; 2021-04-29)
DX: F10.20 Alcohol dependence, uncomplicated (principal); M54.50 Low back pain, unspecified; G89.29 Other chronic pain; A53.9 Syphilis, unspecified; Z86.11 Personal history of tuberculosis; Z59.00 Homelessness unspecified
CPT/HCPCS: 36415; 80053; 81003; 82962; 85027; 86593; 86780; 86803; 87811; C9803; U0003; U0005

== ENCOUNTER 2021-09-17 16:56 | Inpatient (IN) | payer OTHER ==
[2021-09-17 18:48] VITALS: BMI 26.8
[2021-09-17] MEDS ORDERED: MAGNESIUM HYDROX 2400MG/30ML ORAL SUSPENSION 30 ML CUP PO PRN (20:52)
[2021-09-17] MEDS ORDERED: guaiFENesin 200 MG/10 ML 10 ML UNIT-DOSE CUPS PO PRN (20:52)
[2021-09-17] MEDS ORDERED: MAG HYDROX/AL HYDROX/SIMETH 30 ML UNIT-DOSE CUP PO PRN (20:52)
[2021-09-17] MEDS ORDERED: LOPERAMIDE HCL 2 MG CAPSULE PO PRN (20:52)
[2021-09-17] MEDS ORDERED: BENZOCAINE/MENTHOL (CHLORASEPTIC ) LOZENGE MM PRN (20:52)
[2021-09-17] MEDS ORDERED: ACETAMINOPHEN 325 MG TABLET (FP) PO PRN ×2 (20:52)
[2021-09-17] MEDS ORDERED: ONDANSETRON *ODT* 4 MG TABLET SL PRN (20:52)
[2021-09-17] MEDS ORDERED: IBUPROFEN 400 MG TABLET (FP) PO PRN (20:52)
[2021-09-17] MEDS ORDERED: BISMUTH SUBSALICYLATE 524 MG/30 ML PO PRN (20:52)
[2021-09-17] MEDS ORDERED: DICYCLOMINE HCL 10 MG CAPSULE PO PRN (20:52)
[2021-09-17] MEDS ORDERED: P-EPHED 60MG/TRIPROLIDI 2.5MG TABLET PO PRN (20:52)
[2021-09-17] MEDS ORDERED: MAGNESIUM CITRATE 300 ML BOTTLE PO PRN (20:52)
[2021-09-17] MEDS ORDERED: METHOCARBAMOL 500 MG TABLET PO PRN (20:52)
[2021-09-18] MEDS: THIAMINE HCL 100 MG TABLET (FP) PO SCH ×2 (00:38→22:22)
[2021-09-18] MEDS: MELATONIN 5 MG TABLETS PO SCH ×2 (00:39→22:23)
[2021-09-18] MEDS: ALBUTEROL SO4 HFA INHALER IH PRN ×2 (00:50→10:29)
[2021-09-18] MEDS: NICOTINE 21 MG/24 HOURS TOPICAL PATCH TD SCH (10:28)
[2021-09-18] MEDS: hydrOXYzine PAMOATE 25 MG CAPSULE (FP) PO PRN ×2 (10:31→22:22)
[2021-09-18] MEDS: NICOTINE POLACRILEX 2 MG GUM BUC PRN (10:32)
[2021-09-18] MEDS: PRENATAL VITAMINS W/ FOLIC ACID TABLET (FP) PO SCH (10:33)
[2021-09-18] MEDS ORDERED: diazePAM 5 MG TABLET PO ONE (11:23)
[2021-09-18] MEDS ORDERED: diazePAM 5 MG TABLET PO PRN (11:23)
[2021-09-18 12:30] LABS: HEMATOCRIT 40.2 % (35.4-49); HEMOGLOBIN 13.7 GM/dL (11.7-16.9); MCH 32.7 pg (25.7-33.7); MCHC 34.2 g/dl (32.0-35.9); MEAN CELL VOLUME 95.6 fl (80-96); MEAN PLT VOLUME 8.4 fl (7.5-11.1); PLATELET COUNT 178 10^3/uL (134-434); WHITE BLOOD COUNT 6.6 K/mm3 (4.0-10.0)
[2021-09-18 12:36] LABS: CALCIUM 8.5 mg/dL (8.5-10.1)
[2021-09-18 12:37] LABS: ALBUMIN 3.8 g/dl (3.4-5.0); CREATININE 1.1 mg/dL (0.55-1.3)
[2021-09-18 12:39] LABS: BILIRUBIN,TOTAL 0.4 mg/dL (0.2-1); TOT PROT 6.5 g/dl (6.4-8.2)
[2021-09-18] MEDS: diazePAM 5 MG TABLET PO SCH ×2 (17:49→22:23)
[2021-09-19] MEDS: diazePAM 5 MG TABLET PO SCH ×2 (05:11→11:26)
[2021-09-19] MEDS: hydrOXYzine PAMOATE 25 MG CAPSULE (FP) PO PRN (05:11)
[2021-09-19] MEDS: PRENATAL VITAMINS W/ FOLIC ACID TABLET (FP) PO SCH (11:25)
[2021-09-19] MEDS: ALBUTEROL SO4 HFA INHALER IH PRN (11:25)
[2021-09-19] MEDS: NICOTINE 21 MG/24 HOURS TOPICAL PATCH TD SCH (11:27)
[2021-09-19] MEDS: NICOTINE POLACRILEX 2 MG GUM BUC PRN (11:28)
[2021-09-19] MEDS ORDERED: PENICILLIN G BENZATHINE 2,400,000 UNIT/4 ML PFS IM ONE (12:49)
[2021-09-19 12:55] LABS: PH,URINE 5.5 (5.0-8.0); URINE APPEARANCE TURBID; URINE BILIRUBIN NEGATIVE (NEGATIVE); URINE COLOR DK YELLOW; URINE GLUCOSE (UA) NEGATIVE (NEGATIVE); URINE KETONE NEGATIVE (NEGATIVE); URINE LEUK ESTERASE NEGATIVE (NEGATIVE); URINE NITRITE NEGATIVE (NEGATIVE); URINE PROTEIN NEGATIVE (NEGATIVE)
[2021-09-19 14:01] VITALS: BP 118/64; PULSE 84; TEMP 97.1
[2021-09-20 00:06] LABS: SARS-CoV-2 NAA Not Detected (Not Detected)
[2021-09-20 00:06] LABS: SARS-CoV-2 NAA Not Detected (Not Detected)
[2021-09-20] MEDS ORDERED: diazePAM 5 MG TABLET PO SCH (06:00)
[2021-09-21] MEDS ORDERED: diazePAM 5 MG TABLET PO SCH (06:00)
[2021-09-22] MEDS ORDERED: diazePAM 5 MG TABLET PO ONE (06:00)
== END 2021-09-19 16:44 | disposition left against medical advice (07) | DRG 770 ==
LOC: YASAS 16:56 → UNDOADMIN 23:32 → Y6N 23:32
PROVIDERS: ADMIT Allergy & Immunology; ATTEND Allergy & Immunology
PROC: HZ2ZZZZ Detoxification Services for Substance Abuse Treatment (ICD-10-PCS; principal; 2021-09-17)
DX: F10.230 Alcohol dependence with withdrawal, uncomplicated (principal); F14.20 Cocaine dependence, uncomplicated; F15.20 Other stimulant dependence, uncomplicated; F12.20 Cannabis dependence, uncomplicated; F17.210 Nicotine dependence, cigarettes, uncomplicated; F19.280 Other psychoactive substance dependence with psychoactive substance-induced anxiety disorder; F19.24 Other psychoactive substance dependence with psychoactive substance-induced mood disorder; F41.9 Anxiety disorder, unspecified; J45.20 Mild intermittent asthma, uncomplicated; K21.9 Gastro-esophageal reflux disease without esophagitis; M54.50 Low back pain, unspecified; G89.29 Other chronic pain; Z86.11 Personal history of tuberculosis; Z86.19 Personal history of other infectious and parasitic diseases; Z56.0 Unemployment, unspecified; Z59.00 Homelessness unspecified
CPT/HCPCS: 36415; 80053; 81003; 85027; 86593; 86780; 93005; 93010; C9803-CS; U0003; U0005

== ENCOUNTER 2021-10-11 06:41 | Inpatient (IN) | payer OTHER ==
[2021-10-11 09:10] VITALS: BMI 27.2
[2021-10-11] MEDS ORDERED: BISMUTH SUBSALICYLATE 524 MG/30 ML PO PRN (09:41)
[2021-10-11] MEDS ORDERED: NICOTINE 10 MG CARTRIDGE (INHALER) IH PRN (09:41)
[2021-10-11] MEDS ORDERED: chlordiazePOXIDE HCL 25 MG CAPSULE PO PRN (09:41)
[2021-10-11] MEDS ORDERED: DICYCLOMINE HCL 10 MG CAPSULE PO PRN (09:41)
[2021-10-11] MEDS ORDERED: BENZOCAINE/MENTHOL (CHLORASEPTIC ) LOZENGE MM PRN (09:41)
[2021-10-11] MEDS ORDERED: IBUPROFEN 400 MG TABLET (FP) PO PRN (09:41)
[2021-10-11] MEDS ORDERED: MAGNESIUM CITRATE 300 ML BOTTLE PO PRN (09:41)
[2021-10-11] MEDS ORDERED: MAGNESIUM HYDROX 2400MG/30ML ORAL SUSPENSION 30 ML CUP PO PRN (09:41)
[2021-10-11] MEDS ORDERED: ACETAMINOPHEN 325 MG TABLET (FP) PO PRN ×2 (09:41)
[2021-10-11] MEDS ORDERED: ONDANSETRON *ODT* 4 MG TABLET SL PRN (09:41)
[2021-10-11] MEDS ORDERED: LOPERAMIDE HCL 2 MG CAPSULE PO PRN (09:41)
[2021-10-11] MEDS ORDERED: MAG HYDROX/AL HYDROX/SIMETH 30 ML UNIT-DOSE CUP PO PRN (09:41)
[2021-10-11] MEDS: chlordiazePOXIDE HCL 25 MG CAPSULE PO SCH ×3 (11:30→22:15)
[2021-10-11] MEDS: hydrOXYzine PAMOATE 25 MG CAPSULE (FP) PO SCH ×4 (11:30→22:14)
[2021-10-11] MEDS: NICOTINE 21 MG/24 HOURS TOPICAL PATCH TD SCH (11:34)
[2021-10-11] MEDS: PRENATAL VITAMINS W/ FOLIC ACID TABLET (FP) PO SCH (11:34)
[2021-10-11 14:25] LABS: HEMATOCRIT 44.6 % (35.4-49); MCH 32.2 pg (25.7-33.7); MCHC 33.7 g/dl (32.0-35.9); MEAN CELL VOLUME 95.6 fl (80-96); MEAN PLT VOLUME 8.1 fl (7.5-11.1); PLATELET COUNT 226 10^3/uL (134-434); RBC 4.67 M/mm3 (4.00-5.60); RDW 14.1 % (11.9-15.9); WHITE BLOOD COUNT 6.9 K/mm3 (4.0-10.0)
[2021-10-11 14:29] LABS: CALCIUM 9.8 mg/dL (8.5-10.1)
[2021-10-11 14:30] LABS: ALBUMIN 4.6 g/dl (3.4-5.0); BLOOD UREA NITROGEN 30.5 mg/dL (7-18)
[2021-10-11 14:34] LABS: BILIRUBIN,TOTAL 0.5 mg/dL (0.2-1)
[2021-10-11] MEDS: ALBUTEROL SO4 HFA INHALER IH PRN (18:40)
[2021-10-11] MEDS: METHOCARBAMOL 500 MG TABLET PO PRN (22:14)
[2021-10-11] MEDS: THIAMINE HCL 100 MG TABLET (FP) PO SCH (22:14)
[2021-10-11] MEDS: MELATONIN 5 MG TABLETS PO SCH (22:14)
[2021-10-12] MEDS: METHOCARBAMOL 500 MG TABLET PO PRN ×2 (05:15→18:48)
[2021-10-12] MEDS: hydrOXYzine PAMOATE 25 MG CAPSULE (FP) PO SCH ×5 (05:15→22:05)
[2021-10-12] MEDS: chlordiazePOXIDE HCL 25 MG CAPSULE PO SCH ×4 (05:15→22:07)
[2021-10-12] MEDS: PRENATAL VITAMINS W/ FOLIC ACID TABLET (FP) PO SCH (10:12)
[2021-10-12] MEDS: NICOTINE 21 MG/24 HOURS TOPICAL PATCH TD SCH (10:14)
[2021-10-12] MEDS: ALBUTEROL SO4 HFA INHALER IH PRN (18:51)
[2021-10-12] MEDS: THIAMINE HCL 100 MG TABLET (FP) PO SCH (22:05)
[2021-10-12] MEDS: MELATONIN 5 MG TABLETS PO SCH (22:07)
[2021-10-13] MEDS: chlordiazePOXIDE HCL 25 MG CAPSULE PO SCH ×3 (05:07→18:09)
[2021-10-13] MEDS: hydrOXYzine PAMOATE 25 MG CAPSULE (FP) PO SCH ×4 (05:08→18:10)
[2021-10-13] MEDS: ALBUTEROL SO4 HFA INHALER IH PRN (05:09)
[2021-10-13 08:45] VITALS: PULSE 76
[2021-10-13] MEDS: NICOTINE 21 MG/24 HOURS TOPICAL PATCH TD SCH (10:21)
[2021-10-13] MEDS: PRENATAL VITAMINS W/ FOLIC ACID TABLET (FP) PO SCH (10:21)
[2021-10-13 12:41] VITALS: BP 97/61; TEMP 97.5
[2021-10-13 16:08] LABS: SARS-CoV-2 NAA Not Detected (Not Detected)
[2021-10-14] MEDS ORDERED: chlordiazePOXIDE HCL 10 MG CAPSULE PO PRN
[2021-10-14] MEDS ORDERED: chlordiazePOXIDE HCL 10 MG CAPSULE PO SCH (05:00)
[2021-10-15] MEDS ORDERED: chlordiazePOXIDE HCL 10 MG CAPSULE PO SCH (05:00)
[2021-10-16] MEDS ORDERED: chlordiazePOXIDE HCL 10 MG CAPSULE PO ONE (05:00)
== END 2021-10-13 18:00 | disposition left against medical advice (07) | DRG 770 ==
LOC: YASAS 06:41 → Y3N 10:11
PROVIDERS: ADMIT Allergy & Immunology; ATTEND Surgery
PROC: HZ2ZZZZ Detoxification Services for Substance Abuse Treatment (ICD-10-PCS; principal; 2021-10-11)
DX: F10.230 Alcohol dependence with withdrawal, uncomplicated (principal); F14.20 Cocaine dependence, uncomplicated; F12.20 Cannabis dependence, uncomplicated; F17.210 Nicotine dependence, cigarettes, uncomplicated; F19.24 Other psychoactive substance dependence with psychoactive substance-induced mood disorder; J45.909 Unspecified asthma, uncomplicated; K21.9 Gastro-esophageal reflux disease without esophagitis; M54.50 Low back pain, unspecified; G89.29 Other chronic pain; Z62.810 Personal history of physical and sexual abuse in childhood; Z91.410 Personal history of adult physical and sexual abuse; Z86.11 Personal history of tuberculosis; Z56.0 Unemployment, unspecified; Z59.00 Homelessness unspecified
CPT/HCPCS: 36415; 71046-TC-FY; 80053; 85027; 86593; 86780; 87811; C9803-CS; Q0162; U0003; U0005

== ENCOUNTER 2022-03-17 09:32 | Inpatient (IN) | payer OTHER ==
[2022-03-17 10:28] VITALS: BMI 29.0
[2022-03-17] MEDS ORDERED: IBUPROFEN 600 MG TABLET (FP) PO PRN (11:08)
[2022-03-17] MEDS ORDERED: ACETAMINOPHEN 325 MG TABLET (FP) PO PRN ×2 (11:08)
[2022-03-17] MEDS ORDERED: NICOTINE 10 MG CARTRIDGE (INHALER) IH PRN (11:08)
[2022-03-17] MEDS ORDERED: DICYCLOMINE HCL 10 MG CAPSULE PO PRN (11:08)
[2022-03-17] MEDS ORDERED: chlordiazePOXIDE HCL 25 MG CAPSULE PO PRN (11:08)
[2022-03-17] MEDS ORDERED: ONDANSETRON *ODT* 4 MG TABLET SL PRN (11:08)
[2022-03-17] MEDS ORDERED: MAGNESIUM HYDROX 2400MG/30ML ORAL SUSPENSION 30 ML CUP PO PRN (11:08)
[2022-03-17] MEDS ORDERED: LOPERAMIDE HCL 2 MG CAPSULE PO PRN (11:08)
[2022-03-17] MEDS ORDERED: hydrOXYzine PAMOATE 25 MG CAPSULE (FP) PO PRN (11:08)
[2022-03-17] MEDS ORDERED: MAGNESIUM CITRATE 300 ML BOTTLE PO PRN (11:08)
[2022-03-17] MEDS ORDERED: MAG HYDROX/AL HYDROX/SIMETH 30 ML UNIT-DOSE CUP PO PRN (11:08)
[2022-03-17] MEDS ORDERED: NALOXONE HCL (KLOXXADO) 8 MG SPRAY NS PRN (11:08)
[2022-03-17] MEDS ORDERED: IBUPROFEN 400 MG TABLET (FP) PO PRN (11:08)
[2022-03-17] MEDS ORDERED: BISMUTH SUBSALICYLATE 524 MG/30 ML PO PRN (11:08)
[2022-03-17] MEDS ORDERED: BENZOCAINE/MENTHOL (CHLORASEPTIC ) LOZENGE MM PRN (11:08)
[2022-03-17] MEDS ORDERED: BENZOCAINE 20 % GEL TUBE MM PRN (11:16)
[2022-03-17] MEDS ORDERED: chlordiazePOXIDE HCL 25 MG CAPSULE ONE (11:38)
[2022-03-17] MEDS: chlordiazePOXIDE HCL 25 MG CAPSULE PO SCH ×3 (11:40→22:13)
[2022-03-17] MEDS: ALBUTEROL SO4 HFA INHALER IH PRN ×2 (15:06→22:11)
[2022-03-17 16:51] LABS: CALCIUM 8.9 mg/dL (8.5-10.1)
[2022-03-17 16:52] LABS: ALBUMIN 4.1 g/dl (3.4-5.0); BLOOD UREA NITROGEN 16.7 mg/dL (7-18)
[2022-03-17 16:55] LABS: CREATININE 0.9 mg/dL (0.55-1.3); HEMATOCRIT 45.2 % (35.4-49); HEMOGLOBIN 14.8 GM/dL (11.7-16.9); MCH 30.8 pg (25.7-33.7); MCHC 32.7 g/dl (32.0-35.9); MEAN PLT VOLUME 9.2 fl (7.5-11.1); PLATELET COUNT 204 10^3/uL (134-434); RBC 4.81 M/mm3 (4.00-5.60); RDW 14.1 % (11.9-15.9)
[2022-03-17 16:57] LABS: BILIRUBIN,TOTAL 0.4 mg/dL (0.2-1)
[2022-03-17] MEDS ORDERED: THIAMINE HCL 100 MG TABLET (FP) PO SCH (22:00)
[2022-03-17] MEDS ORDERED: MELATONIN 5 MG TABLETS PO SCH (22:00)
[2022-03-17] MEDS: METHOCARBAMOL 500 MG TABLET PO PRN (22:11)
[2022-03-18] MEDS: ALBUTEROL SO4 HFA INHALER IH PRN (05:38)
[2022-03-18] MEDS: chlordiazePOXIDE HCL 25 MG CAPSULE PO SCH ×2 (05:47→10:13)
[2022-03-18] MEDS ORDERED: PRENATAL VITAMINS W/ FOLIC ACID TABLET (FP) PO SCH (10:00)
[2022-03-18] MEDS: METHOCARBAMOL 500 MG TABLET PO PRN (10:15)
[2022-03-18 14:06] VITALS: BP 102/59; PULSE 72; RESP 18; TEMP 98.7
[2022-03-19] MEDS ORDERED: chlordiazePOXIDE HCL 25 MG CAPSULE PO SCH (05:00)
[2022-03-20] MEDS ORDERED: chlordiazePOXIDE HCL 10 MG CAPSULE PO PRN
[2022-03-20] MEDS ORDERED: chlordiazePOXIDE HCL 10 MG CAPSULE PO SCH (05:00)
[2022-03-21] MEDS ORDERED: chlordiazePOXIDE HCL 10 MG CAPSULE PO SCH (05:00)
[2022-03-22] MEDS ORDERED: chlordiazePOXIDE HCL 10 MG CAPSULE PO ONE (05:00)
== END 2022-03-18 14:23 | disposition left against medical advice (07) | DRG 770 ==
LOC: YASAS 09:32 → Y3N 11:21
PROVIDERS: ADMIT Allergy & Immunology; ATTEND Surgery
PROC: HZ2ZZZZ Detoxification Services for Substance Abuse Treatment (ICD-10-PCS; principal; 2022-03-17)
DX: F10.230 Alcohol dependence with withdrawal, uncomplicated (principal); F14.20 Cocaine dependence, uncomplicated; F12.20 Cannabis dependence, uncomplicated; F17.210 Nicotine dependence, cigarettes, uncomplicated; J45.20 Mild intermittent asthma, uncomplicated; K21.9 Gastro-esophageal reflux disease without esophagitis; B35.3 Tinea pedis; M54.50 Low back pain, unspecified; G89.29 Other chronic pain; K06.8 Other specified disorders of gingiva and edentulous alveolar ridge; Z86.11 Personal history of tuberculosis; Z86.19 Personal history of other infectious and parasitic diseases
CPT/HCPCS: 36415; 80053; 85027; 86593; 86780; 87811; C9803-CS; U0003; U0005

== ENCOUNTER 2022-03-29 11:34 | Inpatient (IN) | payer OTHER ==
[2022-03-29 13:07] VITALS: BMI 28.0
[2022-03-29] MEDS ORDERED: NALOXONE HCL (KLOXXADO) 8 MG SPRAY NS PRN (13:59)
[2022-03-29] MEDS ORDERED: MAGNESIUM CITRATE 300 ML BOTTLE PO PRN (13:59)
[2022-03-29] MEDS ORDERED: METHOCARBAMOL 500 MG TABLET PO PRN (13:59)
[2022-03-29] MEDS ORDERED: NICOTINE 10 MG CARTRIDGE (INHALER) IH PRN (13:59)
[2022-03-29] MEDS ORDERED: IBUPROFEN 600 MG TABLET (FP) PO PRN (13:59)
[2022-03-29] MEDS ORDERED: ACETAMINOPHEN 325 MG TABLET (FP) PO PRN ×2 (13:59)
[2022-03-29] MEDS ORDERED: BISMUTH SUBSALICYLATE 524 MG/30 ML PO PRN (13:59)
[2022-03-29] MEDS ORDERED: ONDANSETRON *ODT* 4 MG TABLET SL PRN (13:59)
[2022-03-29] MEDS ORDERED: hydrOXYzine PAMOATE 25 MG CAPSULE (FP) PO PRN (13:59)
[2022-03-29] MEDS ORDERED: BENZOCAINE/MENTHOL (CHLORASEPTIC ) LOZENGE MM PRN (13:59)
[2022-03-29] MEDS ORDERED: IBUPROFEN 400 MG TABLET (FP) PO PRN (13:59)
[2022-03-29] MEDS ORDERED: MAG HYDROX/AL HYDROX/SIMETH 30 ML UNIT-DOSE CUP PO PRN (13:59)
[2022-03-29] MEDS ORDERED: DICYCLOMINE HCL 10 MG CAPSULE PO PRN (13:59)
[2022-03-29] MEDS ORDERED: LOPERAMIDE HCL 2 MG CAPSULE PO PRN (13:59)
[2022-03-29] MEDS ORDERED: MAGNESIUM HYDROX 2400MG/30ML ORAL SUSPENSION 30 ML CUP PO PRN (13:59)
[2022-03-29] MEDS: NICOTINE 14 MG/24 HOURS TOPICAL PATCH TD SCH (14:58)
[2022-03-29] MEDS: PRENATAL VITAMINS W/ FOLIC ACID TABLET (FP) PO SCH (14:58)
[2022-03-29 17:04] LABS: HEMOGLOBIN 15.5 GM/dL (11.7-16.9); MCH 31.7 pg (25.7-33.7); MCHC 33.7 g/dl (32.0-35.9); MEAN CELL VOLUME 93.8 fl (80-96); MEAN PLT VOLUME 9.3 fl (7.5-11.1); PLATELET COUNT 178 10^3/uL (134-434); WHITE BLOOD COUNT 6.1 K/mm3 (4.0-10.0)
[2022-03-29 17:10] LABS: ALBUMIN 4.2 g/dl (3.4-5.0); BLOOD UREA NITROGEN 16.5 mg/dL (7-18)
[2022-03-29 17:13] LABS: CREATININE 1.1 mg/dL (0.55-1.3)
[2022-03-29 17:15] LABS: BILIRUBIN,TOTAL 0.4 mg/dL (0.2-1); TOT PROT 7.4 g/dl (6.4-8.2)
[2022-03-29] MEDS: ALBUTEROL SO4 HFA INHALER IH PRN (20:04)
[2022-03-29] MEDS: MELATONIN 5 MG TABLETS PO SCH (22:40)
[2022-03-29] MEDS: THIAMINE HCL 100 MG TABLET (FP) PO SCH (22:40)
[2022-03-30] MEDS ORDERED: chlordiazePOXIDE HCL 25 MG CAPSULE PO PRN (10:11)
[2022-03-30] MEDS: ALBUTEROL SO4 HFA INHALER IH PRN ×2 (11:09→17:31)
[2022-03-30] MEDS: PRENATAL VITAMINS W/ FOLIC ACID TABLET (FP) PO SCH (11:10)
[2022-03-30] MEDS: NICOTINE 14 MG/24 HOURS TOPICAL PATCH TD SCH (11:10)
[2022-03-30] MEDS: chlordiazePOXIDE HCL 25 MG CAPSULE PO SCH ×3 (11:11→22:45)
[2022-03-30] MEDS ORDERED: SUVOREXANT 10 MG TABLET PO PRN (22:00)
[2022-03-30] MEDS: THIAMINE HCL 100 MG TABLET (FP) PO SCH (22:45)
[2022-03-30] MEDS: MELATONIN 5 MG TABLETS PO SCH (22:45)
[2022-03-31] MEDS: chlordiazePOXIDE HCL 25 MG CAPSULE PO SCH ×2 (07:19→10:00)
[2022-03-31 09:28] VITALS: BP 104/61; PULSE 70; RESP 19; TEMP 99.5
[2022-03-31] MEDS: PRENATAL VITAMINS W/ FOLIC ACID TABLET (FP) PO SCH (10:00)
[2022-03-31] MEDS: NICOTINE 14 MG/24 HOURS TOPICAL PATCH TD SCH (10:01)
[2022-04-01] MEDS ORDERED: chlordiazePOXIDE HCL 25 MG CAPSULE PO SCH (05:00)
[2022-04-02] MEDS ORDERED: chlordiazePOXIDE HCL 10 MG CAPSULE PO PRN
[2022-04-02] MEDS ORDERED: chlordiazePOXIDE HCL 10 MG CAPSULE PO SCH (05:00)
[2022-04-03] MEDS ORDERED: chlordiazePOXIDE HCL 10 MG CAPSULE PO SCH (05:00)
[2022-04-04] MEDS ORDERED: chlordiazePOXIDE HCL 10 MG CAPSULE PO ONE (05:00)
== END 2022-03-31 10:17 | disposition left against medical advice (07) | DRG 770 ==
LOC: YASAS 11:34 → Y3N 14:22
PROVIDERS: ADMIT Allergy & Immunology; ATTEND Surgery
PROC: HZ2ZZZZ Detoxification Services for Substance Abuse Treatment (ICD-10-PCS; principal; 2022-03-29)
DX: F10.230 Alcohol dependence with withdrawal, uncomplicated (principal); F14.20 Cocaine dependence, uncomplicated; F15.10 Other stimulant abuse, uncomplicated; F12.20 Cannabis dependence, uncomplicated; F17.210 Nicotine dependence, cigarettes, uncomplicated; F19.282 Other psychoactive substance dependence with psychoactive substance-induced sleep disorder; F19.24 Other psychoactive substance dependence with psychoactive substance-induced mood disorder; J45.909 Unspecified asthma, uncomplicated; K21.9 Gastro-esophageal reflux disease without esophagitis; M54.50 Low back pain, unspecified; G89.29 Other chronic pain; R76.8 Other specified abnormal immunological findings in serum; Z62.810 Personal history of physical and sexual abuse in childhood; Z86.19 Personal history of other infectious and parasitic diseases; Z86.11 Personal history of tuberculosis; Z91.410 Personal history of adult physical and sexual abuse
CPT/HCPCS: 36415; 71046-TC-FY; 80053; 82140; 85027; 86593; 86780; 87811; C9803-CS; U0003; U0005

== ENCOUNTER 2023-03-09 10:16 | Inpatient (IN) | payer OTHER ==
[2023-03-09 11:05] VITALS: BMI 30.2
[2023-03-09] MEDS ORDERED: NALOXONE HCL 0.4 MG/ML VIAL IM PRN (11:33)
[2023-03-09] MEDS ORDERED: POLYETHYLENE GLYCOL (HEALTHYLAX) 3350 17 GM PACKET PO PRN (11:33)
[2023-03-09] MEDS ORDERED: chlordiazePOXIDE HCL 25 MG CAPSULE PO PRN (11:33)
[2023-03-09] MEDS ORDERED: BISMUTH SUBSALICYLATE 524 MG/30 ML PO PRN (11:33)
[2023-03-09] MEDS ORDERED: ACETAMINOPHEN 325 MG TABLET (FP) PO PRN (11:33)
[2023-03-09] MEDS ORDERED: guaiFENesin 600 MG TABLET.ER (FP) PO PRN (11:33)
[2023-03-09] MEDS ORDERED: METHOCARBAMOL 500 MG TABLET PO PRN (11:33)
[2023-03-09] MEDS ORDERED: IBUPROFEN 600 MG TABLET (FP) PO PRN (11:33)
[2023-03-09] MEDS ORDERED: LOPERAMIDE HCL 2 MG CAPSULE PO PRN (11:33)
[2023-03-09] MEDS ORDERED: MAG HYDROX/AL HYDROX/SIMETH 30 ML UNIT-DOSE CUP PO PRN (11:33)
[2023-03-09] MEDS ORDERED: NALOXONE HCL (KLOXXADO) 8 MG SPRAY NS PRN (11:33)
[2023-03-09] MEDS ORDERED: BENZONATATE 200 MG CAPSULE PO PRN (11:33)
[2023-03-09] MEDS ORDERED: hydrOXYzine PAMOATE 25 MG CAPSULE (FP) PO PRN (11:33)
[2023-03-09] MEDS ORDERED: BENZOCAINE/MENTHOL (CHLORASEPTIC ) LOZENGE MM PRN (11:33)
[2023-03-09] MEDS ORDERED: IBUPROFEN 400 MG TABLET (FP) PO PRN (11:33)
[2023-03-09] MEDS ORDERED: MAGNESIUM HYDROX 2400MG/30ML ORAL SUSPENSION 30 ML CUP PO PRN (11:33)
[2023-03-09] MEDS ORDERED: DICYCLOMINE HCL 10 MG CAPSULE PO PRN (11:33)
[2023-03-09] MEDS ORDERED: PRENATAL VITAMINS W/ FOLIC ACID TABLET (FP) PO ONE (11:48)
[2023-03-09] MEDS ORDERED: NICOTINE 21 MG/24 HOURS TOPICAL PATCH ONE (11:48)
[2023-03-09] MEDS: PRENATAL VITAMINS W/ FOLIC ACID TABLET (FP) PO SCH (12:18)
[2023-03-09] MEDS: NICOTINE 21 MG/24 HOURS TOPICAL PATCH TD SCH (12:18)
[2023-03-09] MEDS ORDERED: ALBUTEROL SO4 HFA INHALER IH PRN (13:44)
[2023-03-09] MEDS: chlordiazePOXIDE HCL 25 MG CAPSULE PO SCH ×2 (17:21→22:17)
[2023-03-09] MEDS: ONDANSETRON *ODT* 4 MG TABLET SL PRN (17:22)
[2023-03-09] MEDS ORDERED: THIAMINE HCL 100 MG TABLET (FP) PO SCH (22:00)
[2023-03-09] MEDS ORDERED: MELATONIN 5 MG TABLETS PO SCH (22:00)
[2023-03-10] MEDS: chlordiazePOXIDE HCL 25 MG CAPSULE PO SCH ×2 (05:39→10:13)
[2023-03-10 08:46] VITALS: RESP 18
[2023-03-10] MEDS: PRENATAL VITAMINS W/ FOLIC ACID TABLET (FP) PO SCH (10:12)
[2023-03-10] MEDS: ONDANSETRON *ODT* 4 MG TABLET SL PRN (10:17)
[2023-03-10] MEDS: NICOTINE 21 MG/24 HOURS TOPICAL PATCH TD SCH (10:25)
[2023-03-10] MEDS ORDERED: FLU VACCINE (FLULAVAL) PF 60 MCG/0.5 ML SYRINGE 2023-2024 IM ONE (12:14)
[2023-03-10 12:16] LABS: CHLORIDE 106 mmol/L (98-107); POTASSIUM 3.8 mmol/L (3.5-5.1); SODIUM 141 mmol/L (136-145)
[2023-03-10 12:18] LABS: HEMATOCRIT 37.4 % (35.4-49); HEMOGLOBIN 12.3 GM/dL (11.7-16.9); MCH 30.8 pg (25.7-33.7); MCHC 32.8 g/dl (32.0-35.9); MEAN CELL VOLUME 93.9 fl (80-96); MEAN PLT VOLUME 8.9 fl (7.5-11.1); PLATELET COUNT 220 10^3/uL (134-434); RBC 3.99 M/mm3 (4.00-5.60); WHITE BLOOD COUNT 5.9 K/mm3 (4.0-10.0)
[2023-03-10 12:24] LABS: ALBUMIN 3.4 g/dl (3.4-5.0); CREATININE 0.8 mg/dL (0.55-1.3); GLUCOSE,RANDOM 105 mg/dL (74-106)
[2023-03-10 12:26] LABS: TOT PROT 6.1 g/dl (6.4-8.2)
[2023-03-10 12:27] LABS: ALK PHOS 77 U/L (45-117); BILIRUBIN,TOTAL 0.3 mg/dL (0.2-1); SGOT/AST 22 U/L (15-37)
[2023-03-10 12:28] LABS: ANION GAP 6 mmol/L (4-13); BLOOD UREA NITROGEN 15.4 mg/dL (7-18); CALCIUM 8.4 mg/dL (8.5-10.1); CO2 28 mmol/L (21-32); SGPT/ALT 23 U/L (13-61)
[2023-03-10 12:50] VITALS: PULSE 74
[2023-03-10 13:15] LABS: HIV INTERPRETATION NEGATIVE (NEGATIVE)
[2023-03-10 16:57] VITALS: BP 107/67; TEMP 98
[2023-03-10] MEDS ORDERED: SUVOREXANT 10 MG TABLET PO PRN (22:00)
[2023-03-11] MEDS ORDERED: chlordiazePOXIDE HCL 25 MG CAPSULE PO SCH (05:00)
[2023-03-12] MEDS ORDERED: chlordiazePOXIDE HCL 10 MG CAPSULE PO PRN
[2023-03-12] MEDS ORDERED: chlordiazePOXIDE HCL 10 MG CAPSULE PO SCH (05:00)
[2023-03-13] MEDS ORDERED: chlordiazePOXIDE HCL 10 MG CAPSULE PO SCH (05:00)
[2023-03-14] MEDS ORDERED: chlordiazePOXIDE HCL 10 MG CAPSULE PO ONE (05:00)
== END 2023-03-10 16:42 | disposition left against medical advice (07) | DRG 770 ==
LOC: YASAS 10:16 → Y3N 11:43
PROVIDERS: ADMIT Allergy & Immunology; ATTEND Surgery
PROC: HZ2ZZZZ Detoxification Services for Substance Abuse Treatment (ICD-10-PCS; principal; 2023-03-09)
DX: F10.230 Alcohol dependence with withdrawal, uncomplicated (principal); F14.20 Cocaine dependence, uncomplicated; F15.20 Other stimulant dependence, uncomplicated; F12.20 Cannabis dependence, uncomplicated; F17.210 Nicotine dependence, cigarettes, uncomplicated; K21.9 Gastro-esophageal reflux disease without esophagitis; M54.50 Low back pain, unspecified; G89.29 Other chronic pain; Z86.11 Personal history of tuberculosis; Z86.19 Personal history of other infectious and parasitic diseases; Z62.810 Personal history of physical and sexual abuse in childhood; Z91.410 Personal history of adult physical and sexual abuse
CPT/HCPCS: 36415; 80053; 80307; 85027; 86593; 86780; 87389; 87635; 90686; G0008; Q0162

== ENCOUNTER 2023-08-11 13:06 | Inpatient (IN) | payer OTHER ==
[2023-08-11 14:32] VITALS: BMI 24.2
[2023-08-11] MEDS ORDERED: NALOXONE HCL (KLOXXADO) 8 MG SPRAY NS PRN (16:35)
[2023-08-11] MEDS ORDERED: guaiFENesin 600 MG TABLET.ER (FP) PO PRN (16:35)
[2023-08-11] MEDS ORDERED: ACETAMINOPHEN 325 MG TABLET (FP) PO PRN (16:35)
[2023-08-11] MEDS ORDERED: BENZONATATE 200 MG CAPSULE PO PRN (16:35)
[2023-08-11] MEDS ORDERED: DICYCLOMINE HCL 10 MG CAPSULE PO PRN (16:35)
[2023-08-11] MEDS ORDERED: IBUPROFEN 400 MG TABLET (FP) PO PRN (16:35)
[2023-08-11] MEDS ORDERED: NALOXONE HCL 0.4 MG/ML VIAL IM PRN (16:35)
[2023-08-11] MEDS ORDERED: POLYETHYLENE GLYCOL (HEALTHYLAX) 3350 17 GM PACKET PO PRN (16:35)
[2023-08-11] MEDS ORDERED: BISMUTH SUBSALICYLATE 524 MG/30 ML PO PRN (16:35)
[2023-08-11] MEDS ORDERED: LOPERAMIDE HCL 2 MG CAPSULE PO PRN (16:35)
[2023-08-11] MEDS ORDERED: BENZOCAINE/MENTHOL (CHLORASEPTIC ) LOZENGE MM PRN (16:35)
[2023-08-11] MEDS ORDERED: ONDANSETRON *ODT* 4 MG TABLET SL PRN (16:35)
[2023-08-11] MEDS ORDERED: MAGNESIUM HYDROX 2400MG/30ML ORAL SUSPENSION 30 ML CUP PO PRN (16:35)
[2023-08-11] MEDS ORDERED: chlordiazePOXIDE HCL 25 MG CAPSULE PO PRN (16:36)
[2023-08-11] MEDS ORDERED: ALBUTEROL SO4 HFA INHALER IH PRN (16:43)
[2023-08-11] MEDS: methaDONE HCL 10 MG TABLET (FOR DETOX USE ONLY) PO ONE (17:38)
[2023-08-11] MEDS: chlordiazePOXIDE HCL 25 MG CAPSULE PO SCH (17:40)
[2023-08-11] MEDS: MELATONIN 5 MG TABLETS PO SCH (22:28)
[2023-08-11] MEDS: THIAMINE HCL 100 MG TABLET (FP) PO SCH (22:28)
[2023-08-12] MEDS: IBUPROFEN 600 MG TABLET (FP) PO PRN (05:42)
[2023-08-12] MEDS: METHOCARBAMOL 500 MG TABLET PO PRN (05:43)
[2023-08-12] MEDS: PRENATAL VITAMINS W/ FOLIC ACID TABLET (FP) PO SCH (10:18)
[2023-08-12] MEDS: MAG HYDROX/AL HYDROX/SIMETH 30 ML UNIT-DOSE CUP PO PRN (10:36)
[2023-08-12] MEDS: ONDANSETRON *ODT* 4 MG TABLET SL ONE (10:47)
[2023-08-12 12:03] LABS: POTASSIUM 3.6 mmol/L (3.5-5.1)
[2023-08-12 12:06] LABS: BLOOD UREA NITROGEN 18.2 mg/dL (7-18); CALCIUM 8.3 mg/dL (8.5-10.1)
[2023-08-12 12:07] LABS: ALBUMIN 3.4 g/dl (3.4-5.0); HEMATOCRIT 42.2 % (35.4-49); HEMOGLOBIN 13.9 GM/dL (11.7-16.9); MCH 30.6 pg (25.7-33.7); MCHC 32.9 g/dl (32.0-35.9); MEAN CELL VOLUME 93.1 fl (80-96); MEAN PLT VOLUME 8.7 fl (7.5-11.1); PLATELET COUNT 214 10^3/uL (134-434); RBC 4.54 M/mm3 (4.00-5.60)
[2023-08-12 12:10] LABS: CREATININE 0.7 mg/dL (0.55-1.3)
[2023-08-12 12:11] LABS: BILIRUBIN,TOTAL 0.3 mg/dL (0.2-1); TOT PROT 6.3 g/dl (6.4-8.2)
[2023-08-12] MEDS: cloNIDine HCL 0.1 MG TABLET PO PRN (22:17)
[2023-08-13] MEDS: chlordiazePOXIDE HCL 25 MG CAPSULE PO SCH (05:05)
[2023-08-13] MEDS: methaDONE HCL 10 MG TABLET (FOR DETOX USE ONLY) PO ONE (09:20)
[2023-08-13 09:38] VITALS: BP 100/61; PULSE 65; RESP 16; TEMP 98.2
[2023-08-14] MEDS ORDERED: chlordiazePOXIDE HCL 10 MG CAPSULE PO PRN
[2023-08-14] MEDS ORDERED: chlordiazePOXIDE HCL 10 MG CAPSULE PO SCH (05:00)
[2023-08-15] MEDS ORDERED: chlordiazePOXIDE HCL 10 MG CAPSULE PO SCH (05:00)
[2023-08-15] MEDS ORDERED: methaDONE HCL 10 MG TABLET (FOR DETOX USE ONLY) PO ONE (10:00)
[2023-08-16] MEDS ORDERED: chlordiazePOXIDE HCL 10 MG CAPSULE PO ONE (05:00)
== END 2023-08-13 09:27 | disposition left against medical advice (07) | DRG 770 ==
LOC: YASAS 13:06 → Y6N 16:53
PROVIDERS: ADMIT Allergy & Immunology; ATTEND Surgery
PROC: HZ2ZZZZ Detoxification Services for Substance Abuse Treatment (ICD-10-PCS; principal; 2023-08-11)
DX: F10.230 Alcohol dependence with withdrawal, uncomplicated (principal); F14.20 Cocaine dependence, uncomplicated; F17.210 Nicotine dependence, cigarettes, uncomplicated; F19.282 Other psychoactive substance dependence with psychoactive substance-induced sleep disorder; J45.20 Mild intermittent asthma, uncomplicated; R73.9 Hyperglycemia, unspecified; Z86.19 Personal history of other infectious and parasitic diseases; Z86.11 Personal history of tuberculosis; Z86.59 Personal history of other mental and behavioral disorders
CPT/HCPCS: 36415; 80053; 85027; 86593; 86780; 93005; 93010; Q0162